=== PATIENT | female | born 1955 | race Hispanic/Latino ===

== ENCOUNTER 2016-11-20 18:45 | Emergency (ER) | payer MEDICARE ==
--- NOTE | 2016-11-20 19:27 | Emergency Department Report ---
Chief Complaint: Extremity Injury, Lower Stated Complaint: LITO/LEG SWOLLEN Time Seen by Provider: 11/20/16 19:00 - HPI History of Present Illness: 61-year-old female presents today with bilateral lower extremity edema and erythema 3 days. Patient was referred here by [facility] for IV antibiotics. Positive for history of cellulitis. Patient also short of breath and wheezing. Positive for history of CHF and is currently on 2 L home oxygen. Explained to patient that her blood pressure was elevated, history of hypertension but is compliant with medication. Patient states it may be due to pain and lack of sleep. - ROS Review of Systems: Per HPI - Exam Vital Signs: Vital Signs 11/20/16 18:49 Temperature 97.8 F Pulse Rate 95 H Respiratory 24 Rate Blood Pressure 176/116 O2 Sat by Pulse 97 Oximetry Physical Exam: General: 61-year-old female in distress. Well-developed, well-nourished. CV: Regular rate and rhythm. Lungs: As stiff or wheezing. Bilateral lower extremities: Positive for erythema and edema of lower legs and feet. Peripheral pulses intact. Capillary refill less than 2 seconds. MSE screening note: Focused history and physical exam performed. Due to findings the following was ordered: ED Disposition for MSE Condition: Stable
[2016-11-20 20:24] LABS: Calcium 8.8 mg/dL (8.4-10.2); Chloride 97.9 mmol/L (98-107); Potassium 4.2 mmol/L (3.6-5.0)
[2016-11-20 20:26] LABS: Basophils % (Auto) 0.3 % (0.0-1.8); Eosinophils % (Auto) 0.2 % (0.0-4.3); Hematocrit 35.4 % (30.3-42.9); Hemoglobin 11.1 gm/dl (10.1-14.3); Mean Corpuscular HGB Conc 32 % (30-34); Mean Corpuscular Volume 75 fl (79-97); Platelet Count 263 K/mm3 (140-440); White Blood Count 8.2 K/mm3 (4.5-11.0)
[2016-11-20 20:27] LABS: Mean Corpuscular Hemoglobin 24 pg (28-32); Red Cell Distribution Width 24.2 % (13.2-15.2)
[2016-11-20 20:28] LABS: Creatine Kinase 49 units/L (30-135)
[2016-11-20] MEDS ORDERED: DUONEB 0.5 MG-3 MG/3 ML SOLN IH ONE (21:42)
[2016-11-20] MEDS ORDERED: XOPENEX IH ONE ×2 (21:51→21:56)
[2016-11-20 22:19] VITALS: BP 133/75
[2016-11-21] MEDS ORDERED: ZOFRAN ONE (00:13)
[2016-11-21] MEDS ORDERED: DUONEB 0.5 MG-3 MG/3 ML SOLN IH ONE (21:32)
--- NOTE | 2016-11-22 14:20 | ED Elopement Review ---
ED Pt Elopement review - Results review Lab results: Laboratory Tests 11/20/16 11/20/16 11/20/16 19:42 19:42 19:42 WBC 8.2 RBC 4.70 Hgb 11.1 Hct 35.4 MCV 75 L MCH 24 L MCHC 32 RDW 24.2 H Plt Count 263 Lymph % (Auto) 23.3 Redwood % (Auto) 7.2 Eos % (Auto) 0.2 Baso % (Auto) 0.3 Lymph # 1.9 Redwood # 0.6 Eos # 0.0 Baso # 0.0 Seg Neutrophils % 69.0 Seg Neutrophils # 5.7 D-Dimer 167.84 Sodium 140 Potassium 4.2 Chloride 97.9 L Carbon Dioxide 26 Anion Gap 20 BUN 18 H Creatinine 1.0 Estimated GFR 57 BUN/Creatinine Ratio 18.00 Glucose 138 H Calcium 8.8 Total Creatine Kinase CK-MB (CK-2) CK-MB (CK-2) Rel Index Troponin T NT-Pro-B Natriuret Pep 11/20/16 11/20/16 19:42 19:42 WBC RBC Hgb Hct MCV MCH MCHC RDW Plt Count Lymph % (Auto) Redwood % (Auto) Eos % (Auto) Baso % (Auto) Lymph # Redwood # Eos # Baso # Seg Neutrophils % Seg Neutrophils # D-Dimer Sodium Potassium Chloride Carbon Dioxide Anion Gap BUN Creatinine Estimated GFR BUN/Creatinine Ratio Glucose Calcium Total Creatine Kinase 49 CK-MB (CK-2) 2.0 CK-MB (CK-2) Rel Index 4.0 Troponin T < 0.010 NT-Pro-B Natriuret Pep 380.7 - Call Back decision Pt Call Back Decision: Pt to F/U with PMD
== END 2016-11-21 02:35 | disposition left against medical advice (07) ==
LOC: ED 18:45
DX: M79.89 Other specified soft tissue disorders (principal); R06.02 Shortness of breath; R06.2 Wheezing; I50.9 Heart failure, unspecified; I10 Essential (primary) hypertension; Z53.21 Procedure and treatment not carried out due to patient leaving prior to being seen by health care provider
CPT/HCPCS: 36415; 80048; 82550; 82553; 83880; 84484; 85025; 85379; 87040; J2405

== ENCOUNTER 2016-11-24 11:30 | Emergency (ER) | payer MEDICARE ==
[2016-11-24] MEDS ORDERED: XOPENEX IH ONE (12:47)
--- NOTE | 2016-11-24 12:53 | Emergency Department Report ---
Chief Complaint: High BP Stated Complaint: HIGH BP/SOB Time Seen by Provider: 11/24/16 12:46 - HPI History of Present Illness: Patient here reports elevated blood pressure 23-4 days. 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 She is complaining of head pressure for 3-4 days. Complaining the dizziness this morning. She reports shortness of breath 3-4 days and she has chest pain that feels tight on the left side that started this morning. Blood pressure in triage is 179/95. Her pain to her head and her chest is 7 out of 10. She has a history of A. fib and she is on Cardizem. She has COPD and she uses home O2 as needed. She has hypertension, diabetes, hyperlipidemia and sleep apnea. Denies any fever or chills. Denies cough with congestion. She cannot take albuterol because she has a history of A. fib she is on Xopenex at home. Denies taking any blood thinner. - ROS Review of Systems: All systems are negative unless stated in HPI above. - Exam Vital Signs: Vital Signs 11/24/16 11:53 Temperature 98.7 F Pulse Rate 89 Respiratory 22 Rate Blood Pressure 179/95 O2 Sat by Pulse 95 Oximetry Physical Exam: Gen: This is a 61-year-old female well-nourished well-developed in no acute distress. CV: S1, S2. Regular rate and rhythm. Blood pressure is 179/95. Lungs: Positive rhonchi and coarseness throughout lung matute. Increased work of breathing. Scattered wheezing. Extremity: Positive swelling to bilateral lower extremity. Positive pedal pulses. MSE screening note: Focused history and physical exam performed. Due to findings the following was ordered:see [facility] ED Medical Decision Making - Medical Decision Making Medical decision making: Patient seen by provider in triage area. Appropriate protocol activated and patient to main ED to be seen by physician. ED Disposition for MSE Condition: Stable
[2016-11-24 14:16] LABS: Basophils % (Auto) 0.2 % (0.0-1.8); Eosinophils % (Auto) 0.6 % (0.0-4.3); Hematocrit 38.7 % (30.3-42.9); Hemoglobin 12.1 gm/dl (10.1-14.3); Mean Corpuscular HGB Conc 31 % (30-34); Mean Corpuscular Volume 76 fl (79-97); Platelet Count 280 K/mm3 (140-440); Red Blood Count 5.07 M/mm3 (3.65-5.03); White Blood Count 10.5 K/mm3 (4.5-11.0)
[2016-11-24 14:18] LABS: Mean Corpuscular Hemoglobin 24 pg (28-32); Red Cell Distribution Width 24.7 % (13.2-15.2)
[2016-11-24 14:25] LABS: INR 0.95 (0.87-1.13)
[2016-11-24 14:26] LABS: Partial Thromboplastin Time 26.4 Sec. (24.2-36.6)
[2016-11-24 14:36] LABS: Alanine Aminotransferase 15 units/L (7-56); Albumin/Globulin Ratio 1.2 %; Alkaline Phosphatase 117 units/L (35-129); Anion Gap 20 mmol/L; Bilirubin,Total 0.3 mg/dL (0.1-1.2); Blood Urea Nitrogen 10 mg/dL (7-17); Calcium 9.6 mg/dL (8.4-10.2); Carbon Dioxide 25 mmol/L (22-30); Chloride 97.1 mmol/L (98-107); Creatine Kinase 92 units/L (30-135); Glucose 123 mg/dL (65-100); Potassium 4.3 mmol/L (3.6-5.0); Sodium 138 mmol/L (137-145); Total Protein 7.3 g/dL (6.3-8.2)
[2016-11-24 14:42] LABS: Bilirubin,Direct < 0.2 mg/dL (0-0.2)
[2016-11-24 17:40] VITALS: BP 137/92
--- NOTE | 2016-11-26 19:10 | ED Elopement Review ---
ED Pt Elopement review - Results review Lab results: Laboratory Tests 11/24/16 11/24/16 11/24/16 13:55 13:55 13:55 WBC 10.5 RBC 5.07 H Hgb 12.1 Hct 38.7 MCV 76 L MCH 24 L MCHC 31 RDW 24.7 H Plt Count 280 Lymph % (Auto) 38.2 H Motley % (Auto) 5.9 Eos % (Auto) 0.6 Baso % (Auto) 0.2 Lymph # 4.0 Motley # 0.6 Eos # 0.1 Baso # 0.0 Seg Neutrophils % 55.1 Seg Neutrophils # 5.8 PT 12.6 INR 0.95 APTT 26.4 Sodium 138 Potassium 4.3 Chloride 97.1 L Carbon Dioxide 25 Anion Gap 20 BUN 10 Creatinine 0.8 Estimated GFR > 60 BUN/Creatinine Ratio 12.50 Glucose 123 H Calcium 9.6 Total Bilirubin 0.3 Direct Bilirubin < 0.2 AST 18 ALT 15 Alkaline Phosphatase 117 Total Creatine Kinase 92 CK-MB (CK-2) 2.0 CK-MB (CK-2) Rel Index 2.1 Troponin T < 0.010 NT-Pro-B Natriuret Pep Total Protein 7.3 Albumin 4.0 Albumin/Globulin Ratio 1.2 11/24/16 11/24/16 13:55 14:50 WBC RBC Hgb Hct MCV MCH MCHC RDW Plt Count Lymph % (Auto) Motley % (Auto) Eos % (Auto) Baso % (Auto) Lymph # Motley # Eos # Baso # Seg Neutrophils % Seg Neutrophils # PT INR APTT Sodium Potassium Chloride Carbon Dioxide Anion Gap BUN Creatinine Estimated GFR BUN/Creatinine Ratio Glucose Calcium Total Bilirubin Direct Bilirubin AST ALT Alkaline Phosphatase Total Creatine Kinase CK-MB (CK-2) CK-MB (CK-2) Rel Index Troponin T < 0.010 NT-Pro-B Natriuret Pep 133.6 Total Protein Albumin Albumin/Globulin Ratio - Call Back decision Pt Call Back Decision: No action required
--- NOTE | 2016-11-27 10:33 | XRay Report ---
Chest 2 views: Compared to 11/01/16. History: Chest pain. Findings: Normal cardiomediastinal silhouette. Trachea is midline. No consolidation, pneumothorax or pleural effusion. Impression: No acute cardiopulmonary findings.
== END 2016-11-24 17:35 | disposition left against medical advice (07) ==
LOC: ED 11:30
DX: I10 Essential (primary) hypertension (principal); R42 Dizziness and giddiness; R06.02 Shortness of breath; E11.65 Type 2 diabetes mellitus with hyperglycemia; J44.9 Chronic obstructive pulmonary disease, unspecified; Z53.21 Procedure and treatment not carried out due to patient leaving prior to being seen by health care provider
CPT/HCPCS: 36415; 71020; 80048; 80074; 82550; 82553; 83880; 84484; 85025; 85610; 85730; 93005; 93010; 94640

== ENCOUNTER 2016-12-17 21:01 | Emergency (ER) | payer MEDICARE | END 2016-12-17 21:45 | disposition left against medical advice (07) | LOC: ED 21:01 | DX: M79.1 Myalgia (principal); Z53.21 Procedure and treatment not carried out due to patient leaving prior to being seen by health care provider ==

== ENCOUNTER 2017-01-22 16:17 | Emergency (ER) | payer MEDICARE ==
[2017-01-22 16:39] VITALS: BP 137/75
[2017-01-22 17:48] LABS: Anion Gap 21 mmol/L; BUN/Creatinine Ratio 15.55; Blood Urea Nitrogen 14 mg/dL (7-17); Calcium 9.5 mg/dL (8.4-10.2); Carbon Dioxide 25 mmol/L (22-30); Chloride 97.7 mmol/L (98-107); Glucose 117 mg/dL (65-100); Potassium 3.9 mmol/L (3.6-5.0); Sodium 140 mmol/L (137-145)
[2017-01-22 18:02] LABS: Basophils % (Auto) 0.4 % (0.0-1.8); Eosinophils % (Auto) 0.5 % (0.0-4.3); Hematocrit 38.3 % (30.3-42.9); Hemoglobin 11.8 gm/dl (10.1-14.3); Mean Corpuscular HGB Conc 31 % (30-34); Mean Corpuscular Volume 77 fl (79-97); Platelet Count 293 K/mm3 (140-440); Red Blood Count 5.01 M/mm3 (3.65-5.03); White Blood Count 7.4 K/mm3 (4.5-11.0)
[2017-01-22 18:10] LABS: Mean Corpuscular Hemoglobin 24 pg (28-32)
--- NOTE | 2017-01-23 07:37 | XRay Report ---
ROUTINE CHEST, TWO VIEWS: HISTORY: Shortness of breath. The trachea, heart, mediastinal contour, lung matute and bony thorax are unremarkable. No significant change since 12/2016 IMPRESSION: Unremarkable chest x-ray.
== END 2017-01-22 18:59 | disposition left against medical advice (07) ==
LOC: ED 16:17
DX: R07.89 Other chest pain (principal); R06.02 Shortness of breath; M79.89 Other specified soft tissue disorders; Z53.21 Procedure and treatment not carried out due to patient leaving prior to being seen by health care provider
CPT/HCPCS: 36415; 71020; 80048; 83880; 84484; 85025; 93005; 93010

== ENCOUNTER 2017-01-27 19:10 | Emergency (ER) | payer MEDICARE ==
[2017-01-27 20:10] VITALS: BP 157/85
[2017-01-27 21:49] LABS: Hematocrit 35.2 % (30.3-42.9); Hemoglobin 11.1 gm/dl (10.1-14.3); Mean Corpuscular HGB Conc 32 % (30-34); Mean Corpuscular Volume 75 fl (79-97); Platelet Count 312 K/mm3 (140-440); Red Blood Count 4.68 M/mm3 (3.65-5.03); White Blood Count 6.9 K/mm3 (4.5-11.0)
[2017-01-27 21:52] LABS: Mean Corpuscular Hemoglobin 24 pg (28-32); Red Cell Distribution Width 20.8 % (13.2-15.2)
[2017-01-27 21:54] LABS: Calcium 9.2 mg/dL (8.4-10.2); Potassium 3.9 mmol/L (3.6-5.0)
[2017-01-27 21:59] LABS: INR 0.97 (0.87-1.13)
[2017-01-27 22:00] LABS: Partial Thromboplastin Time 27.8 Sec. (24.2-36.6)
--- NOTE | 2017-01-29 21:18 | ED Elopement Review ---
ED Pt Elopement review - Results review Lab results: Laboratory Tests 01/27/17 01/27/17 01/27/17 21:28 21:28 21:28 WBC 6.9 RBC 4.68 Hgb 11.1 Hct 35.2 MCV 75 L MCH 24 L MCHC 32 RDW 20.8 H Plt Count 312 PT 12.8 INR 0.97 APTT 27.8 Carbon Dioxide 27 BUN 14 Creatinine 1.0 Estimated GFR 57 BUN/Creatinine Ratio 14.00 Glucose 94 Calcium 9.2 - Call Back decision Pt Call Back Decision: No action required
== END 2017-01-27 21:30 | disposition left against medical advice (07) ==
LOC: ED 19:10
DX: M79.604 Pain in right leg (principal); M79.605 Pain in left leg; Z53.21 Procedure and treatment not carried out due to patient leaving prior to being seen by health care provider
CPT/HCPCS: 36415; 80048; 85027; 85610; 85730

== ENCOUNTER 2017-02-24 12:48 | Emergency (ER) | payer MEDICARE ==
[2017-02-24] MEDS ORDERED: DECADRON IM ONE (17:33)
[2017-02-24] MEDS ORDERED: TORADOL IM ONE (17:33)
--- NOTE | 2017-02-24 17:41 | Emergency Department Report ---
ED Back Pain/Injury HPI - General Chief Complaint: Extremity Injury, Lower Stated Complaint: SEVERE PAIN R LEG Time Seen by Provider: 02/24/17 17:27 Source: patient Mode of arrival: Ambulatory Limitations: No Limitations - History of Present Illness Initial Comments: patient comes in with complaints of severe right leg pain. Denies any injury but states that the pain starts on the right side of her buttock area and extends down the right leg posteriorly to about knee level. States that she has a history of RLS but states that this is not it. MD Complaint: back pain, other (right leg pain) -: Gradual, days(s) (2) Radiation: right leg Severity: severe Severity scale (0 -10): 10 Quality: sharp, stabbing Consistency: constant Improves With: none Worsens With: movement, sitting upright, walking Associated Symptoms: denies other symptoms. denies: chest pain, numbness, difficulty urinating, incontinence, fever/chills, constipation, headaches, abdominal pain, loss of appetite, shortness of breath - Related Data Home Medications Medication Instructions Recorded Confirmed Last Taken Oxycodone HCl/Acetaminophen 1 each PO Q8H PRN 01/02/17 01/02/17 01/02/17 [Percocet 10/325 mg] Previous Rx's Medication Instructions Recorded Last Taken Type Omeprazole [PriLOSEC] 40 mg PO QDAY #30 capsule. 04/28/16 01/02/17 Rx Amiodarone [Cordarone 200 MG TAB] 200 mg PO BID #60 tablet 05/30/16 01/02/17 Rx Arformoterol Nebu [Brovana Nebu] 15 mcg IH Q12HRT #10 ml 05/30/16 01/02/17 Rx Budesoni/Formotero 160-4.5(Nf) 2 puff IH BID #1 inha 05/30/16 01/02/17 Rx [Symbicort 160-4.5 (Nf)] Diltiazem Cd [Cardizem CD] 180 mg PO Q24HR #30 capsule 05/30/16 01/02/17 Rx Multivitamin with Iron 1 each PO DAILY #30 tablet 05/30/16 01/02/17 Rx [Multivitamins with Iron] Pantoprazole [Protonix TAB] 40 mg PO QDAY #30 tablet 05/30/16 01/02/17 Rx Promethazine [Phenergan TAB] 25 mg PO Q6HR PRN #30 tablet 05/30/16 01/02/17 Rx Simvastatin [Zocor TAB] 40 mg PO QHS #30 tablet 05/30/16 01/02/17 Rx Temazepam [Restoril] 15 mg PO QHS #30 capsule 05/30/16 01/02/17 Rx Venlafaxine Xr [Effexor XR] 150 mg PO BID #60 capsule 05/30/16 01/02/17 Rx glipiZIDE [Glucotrol] 5 mg PO QDAY #30 tablet 05/30/16 01/02/17 Rx rOPINIRole [Requip] 5 mg PO TID #30 tablet 05/30/16 01/02/17 Rx Ferrous Gluconate [Fergon 325 MG 325 mg PO TID #20 tablet 09/24/16 01/02/17 Rx tab] Furosemide [Lasix TAB] 40 mg PO BID #60 tablet 10/07/16 01/02/17 Rx Levalbuterol HCl [Levalbuterol 45 mcg IH QID #60 vial.neb 10/07/16 01/02/17 Rx Concentrate] ISOSORBIDE MONOnitrate [Imdur ER] 60 mg PO QDAY #30 tab.er.24h 10/28/16 Rx predniSONE [Deltasone] 50 mg PO QDAY #6 tab 10/28/16 01/02/17 Rx Prednisone [predniSONE 5 mg (6-Day 5 mg PO .TAPER #1 tab.ds.pk 01/05/17 Unknown Rx Pack, 21 Tabs)] Diazepam [Valium] 10 mg PO Q8H PRN #20 tablet 02/24/17 Unknown Rx Nabumetone [Relafen] 500 mg PO BID #20 tablet 02/24/17 Unknown Rx Allergies Allergy/AdvReac Type Severity Reaction Status Date / Time atenolol Allergy Unknown Verified 02/24/17 14:11 cefuroxime axetil Allergy Hives Verified 02/24/17 14:11 [From Ceftin] duloxetine HCl Allergy Unknown Verified 02/24/17 14:11 [From Cymbalta] gabapentin [From Neurontin] Allergy Rash Verified 02/24/17 14:11 ketoconazole Allergy Shortness Verified 02/24/17 14:11 of Breath levofloxacin [From Levaquin] Allergy Hives Verified 02/24/17 14:11 lorazepam [From Ativan] Allergy Unknown Verified 02/24/17 14:11 rotigotine [From Neupro] Allergy Rash Verified 02/24/17 14:11 umeclidinium bromide Allergy Swelling Verified 02/24/17 14:11 [From Anoro Ellipta] vilanterol trifenatate Allergy Swelling Verified 02/24/17 14:11 [From Anoro Ellipta] albuterol AdvReac Unknown Verified 02/24/17 14:11 rivaroxaban [From Xarelto] AdvReac Bleeding Verified 02/24/17 14:11 ED Review of Systems ROS: Stated complaint: SEVERE PAIN R LEG Other details as noted in HPI Constitutional: denies: chills, fever Eyes: denies: eye pain, eye discharge, vision change ENT: denies: ear pain, throat pain Respiratory: denies: cough, shortness of breath, wheezing Cardiovascular: denies: chest pain, palpitations Endocrine: no symptoms reported Gastrointestinal: denies: abdominal pain, nausea, diarrhea Genitourinary: denies: urgency, dysuria, discharge Musculoskeletal: back pain, myalgia. denies: joint swelling, arthralgia Skin: denies: rash, lesions Neurological: denies: headache, weakness, paresthesias Psychiatric: denies: anxiety, depression Hematological/Lymphatic: denies: easy bleeding, easy bruising ED Past Medical Hx - Past Medical History Hx Hypertension: Yes Hx Congestive Heart Failure: Yes Hx Diabetes: Yes Hx GERD: Yes (Darby's esophagus) Hx Arthritis: Yes Hx Headaches / Migraines: Yes Hx Psychiatric Treatment: Yes (anxiety/panic attacks, depression) Hx Asthma: Yes Hx COPD: Yes Additional medical history: chronic back problems/pain cardiac mass 06/2015. restless leg syndrome,. sleep apnea. pituitary gland tumor. A-Fib. Epicardial fat pad "cardiac mass". CARDIAC MASS. REYNAUD'S DISEASE - Surgical History Hx Coronary Stent: Yes Additional Surgical History: hysterectomy, , all teeth removed, cataract surgery, upper gi surgery, PAT ablation r) greater saphenous, PORT in and PORT out, HEART CATH, VASCULAR SURGERY rt leg.Raynards Disease - Social History Smoking Status: Former Smoker Substance Use Type: Prescribed - Medications Home Medications: Home Medications Medication Instructions Recorded Confirmed Last Taken Type Omeprazole [PriLOSEC] 40 mg PO QDAY #30 capsule. 04/28/16 01/02/17 01/02/17 Rx Amiodarone [Cordarone 200 MG TAB] 200 mg PO BID #60 tablet 05/30/16 01/02/17 Rx Arformoterol Nebu [Brovana Nebu] 15 mcg IH Q12HRT #10 ml 05/30/16 01/02/1701/02 Rx Budesoni/Formotero 160-4.5(Nf) 2 puff IH BID #1 inha 05/30/16 01/02/17 01/02/17 Rx [Symbicort 160-4.5 (Nf)] Diltiazem Cd [Cardizem CD] 180 mg PO Q24HR #30 capsule 05/30/16 01/02/17 Rx Multivitamin with Iron 1 each PO DAILY #30 tablet 05/30/16 01/02/17 01/02/17 Rx [Multivitamins with Iron] Pantoprazole [Protonix TAB] 40 mg PO QDAY #30 tablet 05/30/16 01/02/17 01/02/17 Rx Promethazine [Phenergan TAB] 25 mg PO Q6HR PRN #30 tablet 05/30/16 01/02/17 Rx Simvastatin [Zocor TAB] 40 mg PO QHS #30 tablet 05/30/16 01/02/17 01/02/17 Rx Temazepam [Restoril] 15 mg PO QHS #30 capsule 05/30/16 01/02/17 01/02/17 Rx Venlafaxine Xr [Effexor XR] 150 mg PO BID #60 capsule 05/30/16 01/02/17 Rx glipiZIDE [Glucotrol] 5 mg PO QDAY #30 tablet 05/30/16 01/02/17 01/02/17 Rx rOPINIRole [Requip] 5 mg PO TID #30 tablet 05/30/16 01/02/17 01/02/17 Rx Ferrous Gluconate [Fergon 325 MG 325 mg PO TID #20 tablet 09/24/16 01/02/17 Rx tab] Furosemide [Lasix TAB] 40 mg PO BID #60 tablet 10/07/16 01/02/17 01/02/17 Rx Levalbuterol HCl [Levalbuterol 45 mcg IH QID #60 vial.neb 10/07/16 01/02/17 Rx Concentrate] ISOSORBIDE MONOnitrate [Imdur ER] 60 mg PO QDAY #30 tab.er.24h 10/28/1601/02/17 Rx predniSONE [Deltasone] 50 mg PO QDAY #6 tab 10/28/16 01/02/17 01/02/17 Rx Oxycodone HCl/Acetaminophen 1 each PO Q8H PRN 01/02/17 01/02/17 01/02/17 History [Percocet 10/325 mg] Prednisone [predniSONE 5 mg (6-Day 5 mg PO .TAPER #1 tab.ds.pk 01/05/17 Unknown Rx Pack, 21 Tabs)] Diazepam [Valium] 10 mg PO Q8H PRN #20 tablet 02/24/17 Unknown Rx Nabumetone [Relafen] 500 mg PO BID #20 tablet 02/24/17 Unknown Rx ED Physical Exam - General Limitations: No Limitations General appearance: alert, in no apparent distress - Head Head exam: Present: atraumatic, normocephalic - Eye Eye exam: Present: normal appearance - ENT ENT exam: Present: mucous membranes moist - Neck Neck exam: Present: normal inspection, full ROM - Respiratory Respiratory exam: Present: normal lung sounds bilaterally. Absent: respiratory distress - Cardiovascular Cardiovascular Exam: Present: regular rate, normal rhythm - GI/Abdominal GI/Abdominal exam: Present: soft, normal bowel sounds. Absent: tenderness, guarding, rebound - Rectal Rectal exam: Present: deferred - Extremities Exam Extremities exam: Present: normal inspection - Expanded Lower Extremity Exam Right Hip exam: Present: tenderness. Absent: full ROM, swelling, abrasion, laceration , ecchymosis, erythema Upper Leg exam: Present: normal inspection, tenderness (posteriorly ) Knee exam: Present: normal inspection, full ROM Lower Leg exam: Present: normal inspection. Absent: swelling, erythema Ankle exam: Present: normal inspection, full ROM Neuro vascular tendon exam: Present: no vascular compromise. Absent: pulse deficit, abnormal cap refill, motor deficit, sensory deficit, tendon deficit, extremity cold to touch - Back Exam Back exam: Present: normal inspection - Expanded Back Exam Expanded Back exam: Absent: saddle anesthesia Back exam: Sciatic Notch Tenderness: Right, Positive Straight Leg Raise: Right, Negative Straight Leg Raising: Left - Neurological Exam Neurological exam: Present: alert, oriented X3, CN II-XII intact, reflexes normal. Absent: motor sensory deficit - Psychiatric Psychiatric exam: Present: normal affect, anxious - Skin Skin exam: Present: warm, dry, intact, normal color. Absent: rash ED Course Vital Signs 02/24/17 14:06 Temperature 98.0 F Pulse Rate 80 Respiratory 20 Rate Blood Pressure 141/76 O2 Sat by Pulse 97 Oximetry ED Medical Decision Making - Medical Decision Making Patient appears to be uncomfortable on examination. She has reproducable pain on palpation and findings are consistent with sciatica. She was given IM Torodol and IM Decadron in the ER today. I will continue outpatient medications and refer her to ortho for further evaluation if symptoms fail to resolve. Critical care attestation.: If time is entered above; I have spent that time in minutes in the direct care of this critically ill patient, excluding procedure time. ED Disposition Clinical Impression: Sciatica of right side Disposition: DISCHARGED TO HOME OR SELFCARE Is pt being admited?: No Does the pt Need Aspirin: No Condition: Good Instructions: Sciatica (ED) Prescriptions: Diazepam [Valium] 10 mg PO Q8H PRN #20 tablet PRN Reason: Muscle Spasm Nabumetone [Relafen] 500 mg PO BID #20 tablet Referrals: PRIMARY CAREMD [Primary Care Provider] - 3-5 Days NIESHA DOWNING MD [Staff Physician] - 3-5 Days Time of Disposition: 17:50
[2017-02-24 18:03] VITALS: BP 126/88
== END 2017-02-24 18:03 | disposition home or self-care (01) ==
LOC: ED 12:48
DX: M54.31 Sciatica, right side (principal); I10 Essential (primary) hypertension; I50.9 Heart failure, unspecified; E11.9 Type 2 diabetes mellitus without complications; K20.9 Esophagitis, unspecified; J45.909 Unspecified asthma, uncomplicated; J44.9 Chronic obstructive pulmonary disease, unspecified; Z87.891 Personal history of nicotine dependence
CPT/HCPCS: 96372; 99282; J1100; J1885

== ENCOUNTER 2017-03-05 10:18 | Emergency (ER) | payer MEDICARE ==
[2017-03-05 10:44] VITALS: BP 170/99
[2017-03-05 11:40] LABS: Hematocrit 40.2 % (30.3-42.9); Hemoglobin 12.7 gm/dl (10.1-14.3); Mean Corpuscular HGB Conc 32 % (30-34); Mean Corpuscular Volume 78 fl (79-97); Platelet Count 325 K/mm3 (140-440); Red Blood Count 5.18 M/mm3 (3.65-5.03)
[2017-03-05 11:47] LABS: Anion Gap 19 mmol/L; BUN/Creatinine Ratio 24.44; Blood Urea Nitrogen 22 mg/dL (7-17); Calcium 9.5 mg/dL (8.4-10.2); Carbon Dioxide 29 mmol/L (22-30); Chloride 93.9 mmol/L (98-107); Glucose 107 mg/dL (65-100); Potassium 4.3 mmol/L (3.6-5.0); Sodium 138 mmol/L (137-145)
[2017-03-05 11:48] LABS: Mean Corpuscular Hemoglobin 25 pg (28-32)
--- NOTE | 2017-03-05 12:01 | Emergency Department Report ---
Entered by FLORENCE PEREZ, acting as scribe for BERTHA LOVELL PA. Chief Complaint: Extremity Injury, Lower Stated Complaint: CHEST PAIN Time Seen by Provider: 03/05/17 10:57 - HPI History of Present Illness: 61 y/o female presents c/o right side sciatica nerve damage and was discharged from [facility] yesterday but claims meds are not working. She also notes toe discoloration and cold temperature. Visited an unknown orthopedic Dr. Meds include oxycodon. - ROS Review of Systems: as noted in HPI - Exam Vital Signs: Vital Signs 03/05/17 10:40 Temperature 98.7 F Pulse Rate 87 Respiratory 22 Rate Blood Pressure 170/99 O2 Sat by Pulse 100 Oximetry Physical Exam: General: 61 y/o female in no acute distress. Well-developed, well-nourished. CV: Regular rate and rhythm. No murmurs rubs or gallops. Lungs: Expiratory wheezing Abdomen: No tenderness to palpation. No guarding or rebound tenderness. Normal bowel sounds. Mini Neuro: Alert and oriented 3. Extremeties: Full ROM bilaterally. RLE Pulses 2+, LLE pulses diminshed. MSE screening note: Focused history and physical exam performed. Due to findings the following was ordered: ED Disposition for MSE Condition: Stable This documentation as recorded by the scribe,FLORENCE PEREZ,accurately reflects the service I personally performed and the decisions made by me,BERTHA LOVELL PA.
--- NOTE | 2017-03-08 14:56 | ED Elopement Review ---
ED Pt Elopement review - Results review Lab results: Laboratory Tests 03/05/17 03/05/17 11:07 11:07 WBC 13.0 H RBC 5.18 H Hgb 12.7 Hct 40.2 MCV 78 L MCH 25 L MCHC 32 RDW 21.0 H Plt Count 325 Sodium 138 Potassium 4.3 Chloride 93.9 L Carbon Dioxide 29 Anion Gap 19 BUN 22 H Creatinine 0.9 Estimated GFR > 60 BUN/Creatinine Ratio 24.44 Glucose 107 H Calcium 9.5 - Call Back decision Pt Call Back Decision: No action required
== END 2017-03-05 12:05 | disposition left against medical advice (07) ==
LOC: ED 10:18
DX: R07.9 Chest pain, unspecified (principal); Z53.21 Procedure and treatment not carried out due to patient leaving prior to being seen by health care provider
CPT/HCPCS: 36415; 80048; 85027; 93005; 93010

== ENCOUNTER 2017-03-12 16:13 | Emergency (ER) | payer MEDICARE ==
--- NOTE | 2017-03-12 17:04 | Emergency Department Report ---
Entered by JOSIE BROWN, acting as scribe for ALYCIA VALENTIN NP. Chief Complaint: Extremity Problem,Nontraumatic Stated Complaint: RT SIDE PAIN Time Seen by Provider: 03/12/17 16:54 - HPI History of Present Illness: 61 y/o non-toxic, non ill-appearing female in no acute distress presents to ED c /o cramping right buttocks pain radiating down her right leg as well as bilateral lower extremity pain. She denies trauma or acute injury. Denies dysuria, malodorous urine, or vaginal discharge. Reports chronic SOB, unchanged from baseline. Pt states her feet are numb and "feel like ice", and notes associated swelling. Denies calf pain. She states she was seen recently at [facility] and diagnosed with sciatica and arthritis after 3-day admission. History of diagnosed venous insufficiency. She states she initially experienced relief with percocet and rest, but her pain has persisted. - ROS Review of Systems: + right buttocks, lower extremity pain + swelling to bilateral lower extremities - calf pain, tenderness - Exam Vital Signs: Vital Signs 03/12/17 16:45 Temperature 98.6 F Pulse Rate 92 H Respiratory 20 Rate Blood Pressure 140/74 O2 Sat by Pulse 98 Oximetry Physical Exam: MS/Extremity: Pallor to bilateral lower extremities, cool to touch. Pitting edema to bilateral lower extremities. Faint DP pulses bilaterally with numbness. Negative calf pain, tenderness. No signs of trauma. MSE screening note: Focused history and physical exam performed. Due to findings the following was ordered: CBC, CMP, BNP, UA, CK ED Disposition for MSE Condition: Stable This documentation as recorded by the scribe,JOSIE BROWN,accurately reflects the service I personally performed and the decisions made by HOMERO johnson MARTIN, GUDELIA.
[2017-03-12 17:21] LABS: Basophils % (Auto) 0.3 % (0.0-1.8); Eosinophils % (Auto) 0.2 % (0.0-4.3); Hematocrit 37.2 % (30.3-42.9); Hemoglobin 11.6 gm/dl (10.1-14.3); Mean Corpuscular HGB Conc 31 % (30-34); Mean Corpuscular Volume 78 fl (79-97); Platelet Count 265 K/mm3 (140-440); Red Blood Count 4.79 M/mm3 (3.65-5.03); White Blood Count 11.3 K/mm3 (4.5-11.0)
[2017-03-12 17:22] LABS: Mean Corpuscular Hemoglobin 24 pg (28-32); Red Cell Distribution Width 21.2 % (13.2-15.2)
[2017-03-12 17:56] LABS: Albumin/Globulin Ratio 1.7 %; Bilirubin,Total 0.2 mg/dL (0.1-1.2); Chloride 99.1 mmol/L (98-107); Potassium 4.5 mmol/L (3.6-5.0); Total Protein 6.3 g/dL (6.3-8.2)
[2017-03-12] MEDS ORDERED: MORPHINE IV ONE (19:31)
[2017-03-12] MEDS ORDERED: ZOFRAN IV ONE (19:55)
--- NOTE | 2017-03-12 20:12 | Emergency Department Report ---
HPI - General Chief Complaint: Extremity Problem,Nontraumatic Time Seen by Provider: 03/12/17 18:48 - HPI HPI: This is a 61-year-old female presents to the emergency department from home via EMS with complaint of pain to the right hip, buttock and down the right leg that she says is consistent with sciatic nerve pain. She said that she saw an orthopedist to diagnose her with this recently. She had been taking a Percocet today without any relief of her discomfort. She denies any problems with bowel or bladder, numbness or paresthesias or any neurological deficits. The patient has a history of venous insufficiency for which she follows with Dr. Rodriguez, the vascular physician. She has an appointment on the for a follow-up Doppler ultrasound. She has a past medical history of arthritis, asthma, CHF, COPD, diabetes, GERD, hypertension, chronic pains, restless leg syndrome, depression, anxiety, atrial fibrillation. No recent travel or sick contacts at home. ED Past Medical Hx - Past Medical History Previous Medical History?: Yes Hx Hypertension: Yes Hx Congestive Heart Failure: Yes Hx Diabetes: Yes Hx GERD: Yes (Darby's esophagus) Hx Arthritis: Yes Hx Headaches / Migraines: Yes Hx Psychiatric Treatment: Yes (anxiety/panic attacks, depression) Hx Asthma: Yes Hx COPD: Yes Additional medical history: chronic back problems/pain cardiac mass 06/2015. restless leg syndrome,. sleep apnea. pituitary gland tumor. A-Fib. Epicardial fat pad "cardiac mass". CARDIAC MASS. REYNAUD'S DISEASE - Surgical History Hx Coronary Stent: Yes Additional Surgical History: hysterectomy, , all teeth removed, cataract surgery, upper gi surgery, PAT ablation r) greater saphenous, PORT in and PORT out, HEART CATH, VASCULAR SURGERY rt leg.Raynards, Rt and left leg stents in CIV JointDisease - Social History Smoking Status: Former Smoker Substance Use Type: Prescribed, Tranquilizers - Medications Home Medications: Home Medications Medication Instructions Recorded Confirmed Last Taken Type Amiodarone [Cordarone 200 MG TAB] 200 mg PO BID #60 tablet 05/30/16 03/12/1705/21 Rx Multivitamin with Iron 1 each PO DAILY #30 tablet 05/30/16 03/12/17 03/11/17 Rx [Multivitamins with Iron] Simvastatin [Zocor TAB] 40 mg PO QHS #30 tablet 05/30/16 03/12/17 03/11/17 Rx Venlafaxine Xr [Effexor XR] 150 mg PO BID #60 capsule 05/30/16 03/12/17 Rx rOPINIRole [Requip] 5 mg PO TID #30 tablet 05/30/16 03/12/17 03/11/17 Rx Furosemide [Lasix TAB] 40 mg PO BID #60 tablet 10/07/16 03/12/17 03/11/17 Rx Levalbuterol HCl [Levalbuterol 45 mcg IH QID #60 vial.neb 10/07/16 03/12/1705/21 Rx Concentrate] Prednisone [predniSONE 5 mg (6-Day 5 mg PO .TAPER #1 tab.ds.pk 03/03/1703/11/17 Rx Pack, 21 Tabs)] oxyCODONE /ACETAMINOPHEN [Percocet 1 tab PO Q6H PRN #20 tablet 03/03/17 Unknown Rx 5/325 mg] ALPRAZolam [Xanax TAB] 1 mg PO TID 03/12/17 03/12/17 03/11/17 History Diltiazem [Cardizem] 60 mg PO QDAY 03/12/17 03/12/17 03/11/17 History Potassium Chloride [K-Dur] 1 tab PO QDAY 03/12/17 03/12/17 03/11/17 History Ranitidine HCl [Zantac 150 MG TAB] 150 mg PO BID 03/12/17 03/12/17 03/11/17 History Spironolactone [Aldactone] 25 mg PO QDAY 03/12/17 03/12/17 03/11/17 History Symbicort 80-4.5 (Nf) 1 puff PO PRN 03/12/17 03/12/17 03/11/17 History ED Review of Systems ROS: Stated complaint: RT SIDE PAIN Other details as noted in HPI Comment: All other systems reviewed and negative Constitutional: denies: chills, fever Eyes: denies: eye pain, eye discharge, vision change ENT: denies: ear pain, throat pain Respiratory: denies: cough, shortness of breath, wheezing Cardiovascular: denies: chest pain, palpitations Gastrointestinal: denies: abdominal pain, nausea, diarrhea Genitourinary: denies: urgency, dysuria, discharge Musculoskeletal: back pain, arthralgia, myalgia Skin: denies: rash, lesions Neurological: denies: headache, weakness Physical Exam - Physical Exam Vital Signs: Vital Signs 03/12/17 03/12/17 16:45 20:03 Temperature 98.6 F Pulse Rate 92 H Respiratory 20 20 Rate Blood Pressure 140/74 O2 Sat by Pulse 98 Oximetry Physical Exam: GENERAL: The patient is well-developed well-nourished. HEENT: Normocephalic. Atraumatic. Extraocular motions are intact. Patient has moist mucous membranes. Pupils equal reactive to light bilaterally. NECK: Supple. Trachea is midline. CHEST/LUNGS: Clear to auscultation. There is no respiratory distress noted. HEART/CARDIOVASCULAR: Regular. There is no tachycardia. There is no gallop rub or murmur. ABDOMEN: Abdomen is soft, nontender. Patient has normal bowel sounds. Obese habitus. SKIN: Skin is warm and dry. NEURO: The patient is awake, alert, and oriented. The patient is cooperative. The patient has no focal neurologic deficits. The patient has normal speech. DTR patellar +2 over 4 bilaterally. MUSCULOSKELETAL: There is no tenderness to palpation. Positive right leg straight leg raise test reproducing or worsening symptoms. There is no evidence of acute injury. BACK: No midline thoracic or lumbar tenderness to palpation or deformity. ED Course Vital Signs 03/12/17 03/12/17 16:45 20:03 Temperature 98.6 F Pulse Rate 92 H Respiratory 20 20 Rate Blood Pressure 140/74 O2 Sat by Pulse 98 Oximetry ED Medical Decision Making - Lab Data Result diagrams: 03/12/17 17:02 03/12/17 17:02 - Medical Decision Making 61-year-old female presents to the emergency department with some right-sided back pain but mostly down towards the hip and buttock that radiates down the right leg. It appears consistent with sciatica and the patient says she was recently diagnosed with sciatica and that this feels similar. There is been no new trauma. There are no neurological deficits. She is neurovascularly intact. Labs are unremarkable and do not show any etiology of the patient's symptoms. She was given some doses of pain medication, anti-inflammatory's and a muscle relaxant and upon reevaluation she is feeling improved. She has an appointment tomorrow with her pain specialist. She appears safe for discharge home at this time. She will return to the ER with any worsening of symptoms or any acute distress. - Differential Diagnosis sciatica, radiculopathy, lumbar strain, contusion Critical Care Time: No Critical care attestation.: If time is entered above; I have spent that time in minutes in the direct care of this critically ill patient, excluding procedure time. ED Disposition Clinical Impression: Right hip pain, Right buttock pain Sciatica Qualifiers: Laterality: right Qualified Code(s): M54.31 - Sciatica, right side Hypertension Qualifiers: Hypertension type: essential hypertension Qualified Code(s): I10 - Essential ( primary) hypertension Disposition: DISCHARGED TO HOME OR SELFCARE Is pt being admited?: No Condition: Stable Instructions: Sciatica (ED), Hypertension (ED), Arthralgia (ED) Additional Instructions: Please follow-up with your primary care doctor, pain specialist, orthopedist as soon as possible. Return to the ER with any worsening of her symptoms or any acute distress. Referrals: PRIMARY CARE, [Primary Care Provider] - [facility] Time of Disposition: 00:36
[2017-03-12 20:56] LABS: Bacteria,Urine 1+ /HPF (Negative); Bilirubin,Urine NEG (Negative); Blood,Urine NEG (Negative); Ketones,Urine NEG (Negative); Leukocyte Esterase,Urine TR (Negative); Mucus,Urine FEW /HPF; Nitrite,Urine NEG (Negative); Urobilinogen,Urine < 2.0 mg/dL (<2.0); WBC,Urine < 1.0 /HPF (0.0-6.0)
[2017-03-12] MEDS ORDERED: FLEXERIL PO ONE (21:59)
[2017-03-12] MEDS ORDERED: TORADOL IV ONE (22:00)
[2017-03-12] MEDS ORDERED: APRESOLINE IV ONE (23:28)
[2017-03-13 01:18] VITALS: BP 146/99
== END 2017-03-13 00:50 | disposition home or self-care (01) ==
LOC: ED 16:13
DX: M25.551 Pain in right hip (principal); M54.31 Sciatica, right side; M54.5 Low back pain; I10 Essential (primary) hypertension; E11.9 Type 2 diabetes mellitus without complications; K21.9 Gastro-esophageal reflux disease without esophagitis; M19.90 Unspecified osteoarthritis, unspecified site; I50.9 Heart failure, unspecified; F41.9 Anxiety disorder, unspecified; F32.9 Major depressive disorder, single episode, unspecified; J45.909 Unspecified asthma, uncomplicated; J44.9 Chronic obstructive pulmonary disease, unspecified; G89.29 Other chronic pain; G43.909 Migraine, unspecified, not intractable, without status migrainosus; G47.30 Sleep apnea, unspecified; I48.91 Unspecified atrial fibrillation; Z95.818 Presence of other cardiac implants and grafts; Z90.710 Acquired absence of both cervix and uterus; Z87.891 Personal history of nicotine dependence; Z88.8 Allergy status to other drugs, medicaments and biological substances
CPT/HCPCS: 36415; 80053; 81001; 82550; 83880; 85025; 96374; 96375; 99284; J1885; J2270; J2405; J0360

== ENCOUNTER 2017-03-16 04:18 | Emergency (ER) | payer MEDICARE ==
[2017-03-16 04:30] VITALS: BP 154/83
[2017-03-16 04:51] LABS: Basophils % (Auto) 0.4 % (0.0-1.8); Eosinophils % (Auto) 0.5 % (0.0-4.3); Hematocrit 34.6 % (30.3-42.9); Hemoglobin 11.2 gm/dl (10.1-14.3); Mean Corpuscular HGB Conc 32 % (30-34); Mean Corpuscular Volume 77 fl (79-97); Platelet Count 250 K/mm3 (140-440); Red Blood Count 4.51 M/mm3 (3.65-5.03); White Blood Count 7.3 K/mm3 (4.5-11.0)
[2017-03-16 04:54] LABS: Mean Corpuscular Hemoglobin 25 pg (28-32); Red Cell Distribution Width 21.8 % (13.2-15.2)
[2017-03-16] MEDS ORDERED: XOPENEX IH ONE (05:03)
[2017-03-16] MEDS ORDERED: ATROVENT IH ONE (05:03)
[2017-03-16 05:13] LABS: Anion Gap 20 mmol/L; BUN/Creatinine Ratio 13.63; Blood Urea Nitrogen 15 mg/dL (7-17); Calcium 9.1 mg/dL (8.4-10.2); Carbon Dioxide 28 mmol/L (22-30); Chloride 98.4 mmol/L (98-107); Glucose 112 mg/dL (65-100); Potassium 3.9 mmol/L (3.6-5.0); Sodium 142 mmol/L (137-145)
--- NOTE | 2017-03-16 07:15 | XRay Report ---
ROUTINE CHEST, TWO VIEWS: HISTORY: Shortness of breath. Compared to 03/01/17. The trachea, heart, mediastinal contour, lung matute and bony thorax are unremarkable. IMPRESSION: Unremarkable chest x-ray.
--- NOTE | 2017-03-18 00:54 | ED Elopement Review ---
ED Pt Elopement review - Results review Lab results: Laboratory Tests 03/16/17 03/16/17 04:34 04:34 WBC 7.3 RBC 4.51 Hgb 11.2 Hct 34.6 MCV 77 L MCH 25 L MCHC 32 RDW 21.8 H Plt Count 250 Lymph % (Auto) 17.2 [place] % (Auto) 7.8 H Eos % (Auto) 0.5 Baso % (Auto) 0.4 Lymph # 1.3 [place] # 0.6 Eos # 0.0 Baso # 0.0 Seg Neutrophils % 74.1 H Seg Neutrophils # 5.4 Sodium 142 Potassium 3.9 Chloride 98.4 Carbon Dioxide 28 Anion Gap 20 BUN 15 Creatinine 1.1 Estimated GFR 51 BUN/Creatinine Ratio 13.63 Glucose 112 H Calcium 9.1 Troponin T < 0.010 - Call Back decision Pt Call Back Decision: Call pt to return to ED YENNI (chest pain may require inpatient evaluation)
== END 2017-03-16 08:50 | disposition left against medical advice (07) ==
LOC: ED 04:18
DX: J02.9 Acute pharyngitis, unspecified (principal); R05 Cough; R06.02 Shortness of breath; Z53.21 Procedure and treatment not carried out due to patient leaving prior to being seen by health care provider
CPT/HCPCS: 36415; 71020; 80048; 84484; 85025; 93005; 93010; 94640

== ENCOUNTER 2017-03-17 05:03 | Inpatient (IN) | payer MEDICARE ==
[2017-03-17] MEDS ORDERED: PROVENTIL IH ONE ×2 (05:35→05:45)
[2017-03-17] MEDS ORDERED: DUONEB 0.5 MG-3 MG/3 ML SOLN IH ONE (06:24)
[2017-03-17] MEDS ORDERED: MAGNESIUM SULFATE 2GM/50ML 2 GM/50 ML BAG IV ONE (06:24)
--- NOTE | 2017-03-17 06:49 | XRay Report ---
FINAL REPORT PROCEDURE: XR CHEST 1V AP TECHNIQUE: Chest radiograph anteroposterior view. CPT 47821 HISTORY: lisa COMPARISON: No prior studies are available for comparison. FINDINGS: Heart: Normal. Mediastinum/Vessels: Normal. Lungs/Pleural space: Normal. Bony thorax: No acute osseous abnormality. Life support devices: None. IMPRESSION: No acute cardiopulmonary abnormality.
[2017-03-17 07:02] LABS: Basophils % (Auto) 0.1 % (0.0-1.8); Eosinophils % (Auto) 0.8 % (0.0-4.3); Hematocrit 33.8 % (30.3-42.9); Hemoglobin 10.5 gm/dl (10.1-14.3); Mean Corpuscular HGB Conc 31 % (30-34); Mean Corpuscular Volume 79 fl (79-97); Platelet Count 244 K/mm3 (140-440); Red Blood Count 4.29 M/mm3 (3.65-5.03); White Blood Count 9.9 K/mm3 (4.5-11.0)
[2017-03-17 07:13] LABS: Magnesium 1.9 mg/dL (1.7-2.3)
[2017-03-17 07:15] LABS: INR 0.95 (0.87-1.13); Partial Thromboplastin Time 26.9 Sec. (24.2-36.6)
[2017-03-17 07:19] LABS: Creatine Kinase MB 1.6 ng/mL (0.0-4.0)
[2017-03-17 07:20] LABS: Alanine Aminotransferase 15 units/L (7-56); Albumin 3.8 g/dL (3.9-5); Albumin/Globulin Ratio 1.9 %; Alkaline Phosphatase 87 units/L (35-129); Anion Gap 17 mmol/L; BUN/Creatinine Ratio 11.81; Blood Urea Nitrogen 13 mg/dL (7-17); Calcium 8.9 mg/dL (8.4-10.2); Carbon Dioxide 29 mmol/L (22-30); Chloride 97.5 mmol/L (98-107); Creatine Kinase 57 units/L (30-135); Glucose 92 mg/dL (65-100); Potassium 4.2 mmol/L (3.6-5.0); Sodium 139 mmol/L (137-145); Total Protein 5.8 g/dL (6.3-8.2)
--- NOTE | 2017-03-17 07:22 | Emergency Department Report ---
ED Shortness of Breath HPI - General Chief Complaint: Dyspnea/Respdistress Stated Complaint: LITO Time Seen by Provider: 03/17/17 06:13 Source: EMS Mode of arrival: Stretcher Limitations: No Limitations - History of Present Illness Initial Comments: Patient has recently weaned off her prednisone. She states that she gave herself 5 nebulizer treatments at home over the past 24 hours with persistent wheezing. He returns to the emergency department for exacerbation of her COPD. She's had multiple prior admissions. She does also have chronic pain and frequently asks for pain medication for chronic "sciatica pain". He denies chest or abdominal pain. She's had no pleuritic-type symptoms at all. She states that she has had some yellow cough and took her temperature at home and found it to be 101. She denies any chills. MD Complaint: shortness of breath, "asthma attack" -: Gradual, hour(s), days(s) Severity: moderate Consistency: constant Improves With: nothing Worsens With: nothing Known History Of: COPD Context: recent URI Associated Symptoms: denies other symptoms, cough Treatments Prior to Arrival: none - Related Data Home Oxygen Amount: 2 Liters Home Medications Medication Instructions Recorded Confirmed Last Taken ALPRAZolam [Xanax TAB] 1 mg PO TID 03/12/17 03/12/17 03/11/17 Diltiazem [Cardizem] 60 mg PO QDAY 03/12/17 03/12/17 03/11/17 Potassium Chloride [K-Dur] 1 tab PO QDAY 03/12/17 03/12/17 03/11/17 Ranitidine HCl [Zantac 150 MG TAB] 150 mg PO BID 03/12/17 03/12/17 03/11/17 Spironolactone [Aldactone] 25 mg PO QDAY 03/12/17 03/12/17 03/11/17 Symbicort 80-4.5 (Nf) 1 puff PO PRN 03/12/17 03/12/17 03/11/17 Previous Rx's Medication Instructions Recorded Last Taken Type Amiodarone [Cordarone 200 MG TAB] 200 mg PO BID #60 tablet 05/30/16 03/11/17 Rx Multivitamin with Iron 1 each PO DAILY #30 tablet 05/30/16 03/11/17 Rx [Multivitamins with Iron] Simvastatin [Zocor TAB] 40 mg PO QHS #30 tablet 05/30/16 03/11/17 Rx Venlafaxine Xr [Effexor XR] 150 mg PO BID #60 capsule 05/30/16 03/11/17 Rx rOPINIRole [Requip] 5 mg PO TID #30 tablet 05/30/16 03/11/17 Rx Furosemide [Lasix TAB] 40 mg PO BID #60 tablet 10/07/16 03/11/17 Rx Levalbuterol HCl [Levalbuterol 45 mcg IH QID #60 vial.neb 10/07/16 03/11/17 Rx Concentrate] Prednisone [predniSONE 5 mg (6-Day 5 mg PO .TAPER #1 tab.ds.pk 03/03/17 Rx Pack, 21 Tabs)] oxyCODONE /ACETAMINOPHEN [Percocet 1 tab PO Q6H PRN #20 tablet 03/03/17 Unknown Rx 5/325 mg] Allergies Allergy/AdvReac Type Severity Reaction Status Date / Time atenolol Allergy Unknown Verified 02/24/17 14:11 cefuroxime axetil Allergy Hives Verified 02/24/17 14:11 [From Ceftin] duloxetine HCl Allergy Unknown Verified 02/24/17 14:11 [From Cymbalta] gabapentin [From Neurontin] Allergy Rash Verified 02/24/17 14:11 ketoconazole Allergy Shortness Verified 02/24/17 14:11 of Breath levofloxacin [From Levaquin] Allergy Hives Verified 02/24/17 14:11 lorazepam [From Ativan] Allergy Unknown Verified 02/24/17 14:11 rotigotine [From Neupro] Allergy Rash Verified 02/24/17 14:11 umeclidinium bromide Allergy Swelling Verified 02/24/17 14:11 [From Anoro Ellipta] vilanterol trifenatate Allergy Swelling Verified 02/24/17 14:11 [From Anoro Ellipta] albuterol AdvReac Unknown Verified 02/24/17 14:11 rivaroxaban [From Xarelto] AdvReac Bleeding Verified 02/24/17 14:11 ED Review of Systems ROS: Stated complaint: LITO Other details as noted in HPI Constitutional: denies: chills, fever Eyes: denies: eye pain, eye discharge, vision change ENT: denies: ear pain, throat pain Respiratory: cough, shortness of breath, wheezing Cardiovascular: denies: chest pain, palpitations Endocrine: no symptoms reported Gastrointestinal: denies: abdominal pain, nausea, diarrhea Genitourinary: denies: urgency, dysuria, discharge Musculoskeletal: denies: back pain, joint swelling, arthralgia Skin: denies: rash, lesions Neurological: denies: headache, weakness, paresthesias Psychiatric: denies: anxiety, depression Hematological/Lymphatic: denies: easy bleeding, easy bruising ED Past Medical Hx - Past Medical History Hx Hypertension: Yes Hx Congestive Heart Failure: Yes Hx Diabetes: Yes Hx GERD: Yes (Darby's esophagus) Hx Arthritis: Yes Hx Headaches / Migraines: Yes Hx Psychiatric Treatment: Yes (anxiety/panic attacks, depression) Hx Asthma: Yes Hx COPD: Yes Additional medical history: chronic back problems/pain cardiac mass 06/2015. restless leg syndrome,. sleep apnea. pituitary gland tumor. A-Fib. Epicardial fat pad "cardiac mass". CARDIAC MASS. REYNAUD'S DISEASE - Surgical History Hx Coronary Stent: Yes Additional Surgical History: hysterectomy, , all teeth removed, cataract surgery, upper gi surgery, PAT ablation r) greater saphenous, PORT in and PORT out, HEART CATH, VASCULAR SURGERY rt leg.Raynards, Rt and left leg stents in CIV JointDisease - Social History Smoking Status: Never Smoker Substance Use Type: None - Medications Home Medications: Home Medications Medication Instructions Recorded Confirmed Last Taken Type Amiodarone [Cordarone 200 MG TAB] 200 mg PO BID #60 tablet 05/30/16 03/12/1705/21 Rx Multivitamin with Iron 1 each PO DAILY #30 tablet 05/30/16 03/12/17 03/11/17 Rx [Multivitamins with Iron] Simvastatin [Zocor TAB] 40 mg PO QHS #30 tablet 05/30/16 03/12/17 03/11/17 Rx Venlafaxine Xr [Effexor XR] 150 mg PO BID #60 capsule 05/30/16 03/12/17 Rx rOPINIRole [Requip] 5 mg PO TID #30 tablet 05/30/16 03/12/17 03/11/17 Rx Furosemide [Lasix TAB] 40 mg PO BID #60 tablet 10/07/16 03/12/17 03/11/17 Rx Levalbuterol HCl [Levalbuterol 45 mcg IH QID #60 vial.neb 10/07/16 03/12/1705/21 Rx Concentrate] Prednisone [predniSONE 5 mg (6-Day 5 mg PO .TAPER #1 tab.ds.pk 03/03/1703/11/17 Rx Pack, 21 Tabs)] oxyCODONE /ACETAMINOPHEN [Percocet 1 tab PO Q6H PRN #20 tablet 03/03/17 Unknown Rx 5/325 mg] ALPRAZolam [Xanax TAB] 1 mg PO TID 03/12/17 03/12/17 03/11/17 History Diltiazem [Cardizem] 60 mg PO QDAY 03/12/17 03/12/17 03/11/17 History Potassium Chloride [K-Dur] 1 tab PO QDAY 03/12/17 03/12/17 03/11/17 History Ranitidine HCl [Zantac 150 MG TAB] 150 mg PO BID 03/12/17 03/12/17 03/11/17 History Spironolactone [Aldactone] 25 mg PO QDAY 03/12/17 03/12/17 03/11/17 History Symbicort 80-4.5 (Nf) 1 puff PO PRN 03/12/17 03/12/17 03/11/17 History ED Physical Exam - General Limitations: No Limitations General appearance: alert, in no apparent distress, obese - Head Head exam: Present: atraumatic, normocephalic - Eye Eye exam: Present: normal appearance. Absent: scleral icterus - ENT ENT exam: Present: mucous membranes moist - Neck Neck exam: Present: normal inspection - Respiratory Respiratory exam: Present: wheezes, rhonchi. Absent: respiratory distress, accessory muscle use - Cardiovascular Cardiovascular Exam: Present: regular rate, normal rhythm. Absent: systolic murmur, diastolic murmur, rubs, gallop - GI/Abdominal GI/Abdominal exam: Present: soft, normal bowel sounds. Absent: distended, tenderness, guarding, rebound - Extremities Exam Extremities exam: Present: normal inspection, pedal edema (mild). Absent: tenderness, calf tenderness - Back Exam Back exam: Present: normal inspection - Neurological Exam Neurological exam: Present: alert, oriented X3, CN II-XII intact. Absent: motor sensory deficit - Psychiatric Psychiatric exam: Present: normal affect, normal mood - Skin Skin exam: Present: warm, dry, intact, normal color. Absent: rash ED Course Vital Signs 03/17/17 03/17/17 03/17/17 05:45 06:00 06:35 Pulse Rate Pulse Rate [ 77 81 83 Bilateral] Respiratory Rate Respiratory 25 H 27 H 25 H Rate [Bilateral ] Blood Pressure [Left] O2 Sat by Pulse Oximetry 03/17/17 03/17/17 03/17/17 06:38 06:52 07:00 Pulse Rate 89 Pulse Rate [ 88 Bilateral] Respiratory 24 20 Rate Respiratory 26 H Rate [Bilateral ] Blood Pressure 115/60 [Left] O2 Sat by Pulse 100 100 Oximetry - Reevaluation(s) Reevaluation #1: Patient given magnesium, Solu-Medrol, Levaquin, duonebs. She is admitted by Dr. Ramirez to the hospitalist service further care and evaluation. 03/17/17 08:01 ED Medical Decision Making - Lab Data Result diagrams: 03/17/17 06:42 03/17/17 06:42 Laboratory Results - last 24 hr 03/17/17 03/17/17 03/17/17 06:42 06:42 06:42 Jewell % (Auto) 8.2 H Eos % (Auto) 0.8 Jewell # 0.8 Eos # 0.1 Baso # 0.0 Seg Neutrophils % 49.7 Seg Neutrophils # 4.9 PT 12.6 INR 0.95 APTT 26.9 Sodium 139 Potassium 4.2 Chloride 97.5 L Carbon Dioxide 29 Anion Gap 17 BUN 13 Creatinine 1.1 Estimated GFR 51 BUN/Creatinine Ratio 11.81 Glucose 92 Calcium 8.9 Magnesium Total Bilirubin 0.20 AST 15 ALT 15 Alkaline Phosphatase 87 Total Creatine Kinase CK-MB (CK-2) CK-MB (CK-2) Rel Index Troponin T NT-Pro-B Natriuret Pep Total Protein 5.8 L Albumin 3.8 L Albumin/Globulin Ratio 1.9 03/17/17 03/17/17 06:42 06:42 Jewell % (Auto) Eos % (Auto) Jewell # Eos # Baso # Seg Neutrophils % Seg Neutrophils # PT INR APTT Sodium Potassium Chloride Carbon Dioxide Anion Gap BUN Creatinine Estimated GFR BUN/Creatinine Ratio Glucose Calcium Magnesium 1.90 Total Bilirubin AST ALT Alkaline Phosphatase Total Creatine Kinase 57 CK-MB (CK-2) 1.6 CK-MB (CK-2) Rel Index 2.8 Troponin T < 0.010 NT-Pro-B Natriuret Pep 102.5 Total Protein Albumin Albumin/Globulin Ratio Laboratory Results - last 24 hr 03/17/17 03/17/17 03/17/17 06:42 06:42 06:42 Jewell % (Auto) 8.2 H Eos % (Auto) 0.8 Jewell # 0.8 Eos # 0.1 Baso # 0.0 Seg Neutrophils % 49.7 Seg Neutrophils # 4.9 PT 12.6 INR 0.95 APTT 26.9 Sodium 139 Potassium 4.2 Chloride 97.5 L Carbon Dioxide 29 Anion Gap 17 BUN 13 Creatinine 1.1 Estimated GFR 51 BUN/Creatinine Ratio 11.81 Glucose 92 Calcium 8.9 Magnesium Total Bilirubin 0.20 Direct Bilirubin < 0.2 AST 15 ALT 15 Alkaline Phosphatase 87 Total Creatine Kinase CK-MB (CK-2) CK-MB (CK-2) Rel Index Troponin T NT-Pro-B Natriuret Pep Total Protein 5.8 L Albumin 3.8 L Albumin/Globulin Ratio 1.9 03/17/17 03/17/17 06:42 06:42 Jewell % (Auto) Eos % (Auto) Jewell # Eos # Baso # Seg Neutrophils % Seg Neutrophils # PT INR APTT Sodium Potassium Chloride Carbon Dioxide Anion Gap BUN Creatinine Estimated GFR BUN/Creatinine Ratio Glucose Calcium Magnesium 1.90 Total Bilirubin Direct Bilirubin AST ALT Alkaline Phosphatase Total Creatine Kinase 57 CK-MB (CK-2) 1.6 CK-MB (CK-2) Rel Index 2.8 Troponin T < 0.010 NT-Pro-B Natriuret Pep 102.5 Total Protein Albumin Albumin/Globulin Ratio - EKG Data -: EKG Interpreted by [facility] EKG shows normal: sinus rhythm, axis, intervals, QRS complexes, ST-T waves Rate: normal - EKG Data Interpretation: other (Q's in the inferior leads possibly consistent with old inferior zone. No acute ischemic changes.) Critical care attestation.: If time is entered above; I have spent that time in minutes in the direct care of this critically ill patient, excluding procedure time. ED Disposition Clinical Impression: Chronic obstructive pulmonary disease with acute exacerbation Disposition: OP ADMITTED IP TO THIS HOSP Is pt being admited?: Yes Does the pt Need Aspirin: Yes Condition: Stable Instructions: Chronic Obstructive Pulmonary Disease (ED) Referrals: PRIMARY CARE, [Primary Care Provider] - 3-5 Days Time of Disposition: 08:31
[2017-03-17 07:36] LABS: Bilirubin,Direct < 0.2 mg/dL (0-0.2)
[2017-03-17] MEDS ORDERED: NORCO 5/325 PO ONE (07:39)
[2017-03-17 08:04] LABS: Mean Corpuscular Hemoglobin 25 pg (28-32); Red Cell Distribution Width 22.4 % (13.2-15.2)
[2017-03-17] MEDS ORDERED: ZITHROMAX 500 MG in NACL 0.9% 250ML 250 ML IV ONE (08:06)
--- NOTE | 2017-03-17 08:48 | History and Physical Report ---
History of Present Illness Date of examination: 03/17/17 History of present illness: Patient has recently weaned off her prednisone. She states that she gave herself 5 nebulizer treatments at home over the past 24 hours with persistent wheezing. He returns to the emergency department for exacerbation of her COPD. She's had multiple prior admissions. She does also have chronic pain and frequently asks for pain medication for chronic "sciatica pain". He denies chest or abdominal pain. She's had no pleuritic-type symptoms at all. She states that she has had some yellow cough and took her temperature at home and found it to be 101. She denies any chills. Past History Past Medical History: COPD, hypertension, hyperlipidemia Medications and Allergies Allergies Allergy/AdvReac Type Severity Reaction Status Date / Time atenolol Allergy Unknown Verified 02/24/17 14:11 cefuroxime axetil Allergy Hives Verified 02/24/17 14:11 [From Ceftin] duloxetine HCl Allergy Unknown Verified 02/24/17 14:11 [From Cymbalta] gabapentin [From Neurontin] Allergy Rash Verified 02/24/17 14:11 ketoconazole Allergy Shortness Verified 02/24/17 14:11 of Breath levofloxacin [From Levaquin] Allergy Hives Verified 02/24/17 14:11 lorazepam [From Ativan] Allergy Unknown Verified 02/24/17 14:11 rotigotine [From Neupro] Allergy Rash Verified 02/24/17 14:11 umeclidinium bromide Allergy Swelling Verified 02/24/17 14:11 [From Anoro Ellipta] vilanterol trifenatate Allergy Swelling Verified 02/24/17 14:11 [From Anoro Ellipta] albuterol AdvReac Unknown Verified 02/24/17 14:11 rivaroxaban [From Xarelto] AdvReac Bleeding Verified 02/24/17 14:11 Home Medications Medication Instructions Recorded Confirmed Last Taken Type Amiodarone [Cordarone 200 MG TAB] 200 mg PO BID #60 tablet 05/30/16 03/12/1705/21 Rx Multivitamin with Iron 1 each PO DAILY #30 tablet 05/30/16 03/12/17 03/11/17 Rx [Multivitamins with Iron] Simvastatin [Zocor TAB] 40 mg PO QHS #30 tablet 05/30/16 03/12/1703/11/17 Rx Venlafaxine Xr [Effexor XR] 150 mg PO BID #60 capsule 05/30/16 03/12/17 Rx rOPINIRole [Requip] 5 mg PO TID #30 tablet 05/30/16 03/12/17 03/11/17 Rx Furosemide [Lasix TAB] 40 mg PO BID #60 tablet 10/07/16 03/12/17 03/11/17 Rx Levalbuterol HCl [Levalbuterol 45 mcg IH QID #60 vial.neb 10/07/16 03/12/1705/21 Rx Concentrate] Prednisone [predniSONE 5 mg (6-Day 5 mg PO .TAPER #1 tab.ds.pk 03/03/1703/11/17 Rx Pack, 21 Tabs)] oxyCODONE /ACETAMINOPHEN [Percocet 1 tab PO Q6H PRN #20 tablet 03/03/17 Unknown Rx 5/325 mg] ALPRAZolam [Xanax TAB] 1 mg PO TID 03/12/17 03/12/17 03/11/17 History Diltiazem [Cardizem] 60 mg PO QDAY 03/12/17 03/12/17 03/11/17 History Potassium Chloride [K-Dur] 1 tab PO QDAY 03/12/17 03/12/17 03/11/17 History Ranitidine HCl [Zantac 150 MG TAB] 150 mg PO BID 03/12/17 03/12/17 03/11/17 History Spironolactone [Aldactone] 25 mg PO QDAY 03/12/17 03/12/17 03/11/17 History Symbicort 80-4.5 (Nf) 1 puff PO PRN 03/12/17 03/12/17 03/11/17 History Active Meds: Active Medications Aspirin (Aspirin) 325 mg PO QDAY ZOË Enoxaparin Sodium (Lovenox) 40 mg SUB-Q QDAY ZOË Azithromycin 500 mg/ Sodium (Chloride) 250 mls @ 250 mls/hr IV ONCE.ED ONE Stop: 03/17/17 09:05 Ipratropium [place] (Atrovent) 0.5 mg IH Q4H ZOË Levalbuterol HCl (Xopenex) 1.25 mg IH Q4H ZOË Review of Systems Respiratory: shortness of breath, congestion, wheezing Exam - Constitutional Vitals: Temp Pulse Resp BP Pulse Ox 90 19 119/41 93 03/17/17 08:30 03/17/17 08:30 03/17/17 08:30 03/17/17 08:30 General appearance: Present: mild distress - EENT Eyes: Present: PERRL, EOM intact ENT: hearing intact, clear oral mucosa, dentition normal - Neck Neck: Present: supple, normal ROM - Respiratory Respiratory effort: labored Respiratory: bilateral: wheezing - Cardiovascular Rhythm: regular Heart Sounds: Present: S1 & S2 - Extremities Extremities: no ischemia, No edema - Abdominal General gastrointestinal: Present: soft, non-tender, non-distended, normal bowel sounds - Psychiatric Psychiatric: appropriate mood/affect, intact judgment & insight - Neurologic Neurologic: CNII-XII intact, moves all extremities Results - Labs CBC & Chem 7: 03/17/17 06:42 03/17/17 06:42 Labs: Laboratory Last Values WBC 9.9 K/mm3 (4.5-11.0) 03/17/17 06:42 RBC 4.29 M/mm3 (3.65-5.03) 03/17/17 06:42 Hgb 10.5 gm/dl (10.1-14.3) 03/17/17 06:42 Hct 33.8 % (30.3-42.9) 03/17/17 06:42 MCV 79 fl (79-97) 03/17/17 06:42 MCH 25 pg (28-32) L 03/17/17 06:42 MCHC 31 % (30-34) 03/17/17 06:42 RDW 22.4 % (13.2-15.2) H 03/17/17 06:42 Plt Count 244 K/mm3 (140-440) 03/17/17 06:42 Lymph % (Auto) 41.2 % (13.4-35.0) H 03/17/17 06:42 [place] % (Auto) 8.2 % (0.0-7.3) H 03/17/17 06:42 Eos % (Auto) 0.8 % (0.0-4.3) 03/17/17 06:42 Baso % (Auto) 0.1 % (0.0-1.8) 03/17/17 06:42 Lymph # 4.1 K/mm3 (1.2-5.4) 03/17/17 06:42 [place] # 0.8 K/mm3 (0.0-0.8) 03/17/17 06:42 Eos # 0.1 K/mm3 (0.0-0.4) 03/17/17 06:42 Baso # 0.0 K/mm3 (0.0-0.1) 03/17/17 06:42 Seg Neutrophils % 49.7 % (40.0-70.0) 03/17/17 06:42 Seg Neutrophils # 4.9 K/mm3 (1.8-7.7) 03/17/17 06:42 PT 12.6 Sec. (12.2-14.9) 03/17/17 06:42 INR 0.95 (0.87-1.13) 03/17/17 06:42 APTT 26.9 Sec. (24.2-36.6) 03/17/17 06:42 Sodium 139 mmol/L (137-145) 03/17/17 06:42 Potassium 4.2 mmol/L (3.6-5.0) 03/17/17 06:42 Chloride 97.5 mmol/L (98-107) L 03/17/17 06:42 Carbon Dioxide 29 mmol/L (22-30) 03/17/17 06:42 Anion Gap 17 mmol/L 03/17/17 06:42 BUN 13 mg/dL (7-17) 03/17/17 06:42 Creatinine 1.1 mg/dL (0.7-1.2) 03/17/17 06:42 Estimated GFR 51 ml/min 03/17/17 06:42 BUN/Creatinine Ratio 11.81 % 03/17/17 06:42 Glucose 92 mg/dL (65-100) 03/17/17 06:42 Calcium 8.9 mg/dL (8.4-10.2) 03/17/17 06:42 Magnesium 1.90 mg/dL (1.7-2.3) 03/17/17 06:42 Total Bilirubin 0.20 mg/dL (0.1-1.2) 03/17/17 06:42 Direct Bilirubin < 0.2 mg/dL (0-0.2) 03/17/17 06:42 AST 15 units/L (5-40) 03/17/17 06:42 ALT 15 units/L (7-56) 03/17/17 06:42 Alkaline Phosphatase 87 units/L (35-129) 03/17/17 06:42 Total Creatine Kinase 57 units/L (30-135) 03/17/17 06:42 CK-MB (CK-2) 1.6 ng/mL (0.0-4.0) 03/17/17 06:42 CK-MB (CK-2) Rel Index 2.8 (0-4) 03/17/17 06:42 Troponin T < 0.010 ng/mL (0.00-0.029) 03/17/17 06:42 NT-Pro-B Natriuret Pep 102.5 pg/mL (0-900) 03/17/17 06:42 Total Protein 5.8 g/dL (6.3-8.2) L 03/17/17 06:42 Albumin 3.8 g/dL (3.9-5) L 03/17/17 06:42 Albumin/Globulin Ratio 1.9 % 03/17/17 06:42 Assessment and Plan - Patient Problems (1) CHF (congestive heart failure) Current Visit: Yes Status: Acute Qualifiers: Congestive heart failure type: C Congestive heart failure chronicity: C Plan to address problem: We'll continue current regimen (2) Chronic obstructive pulmonary disease with acute exacerbation Current Visit: Yes Status: Acute Plan to address problem: We will admit patient to hospital. Start nebulizer treatments, start IV steroids, O2, pulmonary consult
[2017-03-17] MEDS ORDERED: ATROVENT IH PRN (08:49)
[2017-03-17] MEDS ORDERED: PROVENTIL IH PRN (08:49)
[2017-03-17] MEDS: ATROVENT IH SCH ×4 (08:52→20:17)
[2017-03-17] MEDS: XOPENEX IH SCH ×4 (08:52→20:17)
--- NOTE | 2017-03-17 10:09 | Admit Criteria Form ---
Admission Criteria Documentation: COPD Clinical Indications for Admission to Inpatient Care (Place 'X' for any and all applicable criteria): Admission is indicated for ANY ONE of the following (1)(2)(3): [X ]I. Acute exacerbation by high-risk comorbidity (e.g., pneumonia, dysrhythmia, heart failure, pleural effusion, pneumothorax) or severe underlying COPD (e.g., steroid dependent) [ ]II. Inpatient admission required rather than observation care (see Chronic Obstructive Pulmonary Disease: Observation Care) because of ANY ONE of the following: [ ]a) New or pre-existing signs or symptoms of COPD (eg, dyspnea or Tachypnea at rest or with minimal activity) that persist despite outpatient and observation care treatment [ ]b) New-onset hypoxemia (room air SaO2 less than 90%, PO2 less than 60 mm Hg (8.0 kPa)) that persists despite outpatient and observation care treatment [ ]c) Worsening of pre-existing hypoxemia (eg, new or increased requirement for supplemental oxygen to maintain oxygenation at baseline level) that persists despite outpatient and observation care treatment, with oxygen treatment needs performable only in acute inpatient setting [ ]d) Hypercarbia (PCO2 greater than 40 mm Hg (5.3 kPa))-induced respiratory acidosis (pH less than 7.35) that persists despite outpatient and observation care treatment [ ]e) Supplemental oxygen or respiratory treatments for over 24 hours that are performable only in acute inpatient setting [ ]f) Chest tube placement with active evacuation (e.g., suction, drainage) (5) [ ]g) Other condition, treatment or monitoring requiring inpatient admission [ ]III. Planned invasive surgical or diagnostic procedures requiring acute- care hospitalization [ ]IV. Acute respiratory failure (e.g., uncompensated hypercarbia, severe hypoxemia) [ ]V. Severe comorbid condition (e.g., severe steroid myopathy, acute vertebral fracture) that has acutely worsened pulmonary function [ ]. Confusion state, lethargy, obtundation, stupor or coma Extended stay beyond goal length of stay may be needed for (31)(32): [ ]a ) Respiratory Failure. [ ]b) Severe or persisting hypoxemia or hypercarbia [ ]c) Severe or persistent dyspnea [ ]d) Comorbidities (e.g. chronic heart failure, atrial fibrillation with rapid response, pneumonia) [ ]e) Malnutrition The original [facility] content created by [facility] has been revised. The portions of the content which have been revised are identified through the use of italic text or in bold, and [facility] has neither reviewed nor approved the modified material. All other unmodified content is copyright [facility]. Please see references footnoted in the original [facility] edition 2016 Admission Criteria Met: Yes
[2017-03-17] MEDS: LOVENOX SUB-Q SCH (12:00)
[2017-03-17] MEDS: ASPIRIN PO SCH (12:00)
[2017-03-17] MEDS: NORCO 5/325 PO PRN ×2 (12:13→21:15)
--- NOTE | 2017-03-17 15:11 | Consultation ---
History of Present Illness Consult date: 03/17/17 Requesting physician: AUGUSTINA URENA Reason for consult: COPD Past History Past Medical History: COPD, hypertension, hyperlipidemia Medications and Allergies Allergies Allergy/AdvReac Type Severity Reaction Status Date / Time atenolol Allergy Unknown Verified 02/24/17 14:11 cefuroxime axetil Allergy Hives Verified 02/24/17 14:11 [From Ceftin] duloxetine HCl Allergy Unknown Verified 02/24/17 14:11 [From Cymbalta] gabapentin [From Neurontin] Allergy Rash Verified 02/24/17 14:11 ketoconazole Allergy Shortness Verified 02/24/17 14:11 of Breath levofloxacin [From Levaquin] Allergy Hives Verified 02/24/17 14:11 lorazepam [From Ativan] Allergy Unknown Verified 02/24/17 14:11 rotigotine [From Neupro] Allergy Rash Verified 02/24/17 14:11 umeclidinium bromide Allergy Swelling Verified 02/24/17 14:11 [From Anoro Ellipta] vilanterol trifenatate Allergy Swelling Verified 02/24/17 14:11 [From Anoro Ellipta] albuterol AdvReac Unknown Verified 02/24/17 14:11 rivaroxaban [From Xarelto] AdvReac Bleeding Verified 02/24/17 14:11 Home Medications Medication Instructions Recorded Confirmed Last Taken Type Amiodarone [Cordarone 200 MG TAB] 200 mg PO BID #60 tablet 05/30/16 03/12/1705/21 Rx Multivitamin with Iron 1 each PO DAILY #30 tablet 05/30/16 03/12/17 03/11/17 Rx [Multivitamins with Iron] Simvastatin [Zocor TAB] 40 mg PO QHS #30 tablet 05/30/16 03/12/17 03/11/17 Rx Venlafaxine Xr [Effexor XR] 150 mg PO BID #60 capsule 05/30/16 03/12/17 Rx rOPINIRole [Requip] 5 mg PO TID #30 tablet 05/30/16 03/12/17 03/11/17 Rx Furosemide [Lasix TAB] 40 mg PO BID #60 tablet 10/07/16 03/12/17 03/11/17 Rx Levalbuterol HCl [Levalbuterol 45 mcg IH QID #60 vial.neb 10/07/16 03/12/1705/21 Rx Concentrate] Prednisone [predniSONE 5 mg (6-Day 5 mg PO .TAPER #1 tab.ds.pk 03/03/1703/11/17 Rx Pack, 21 Tabs)] oxyCODONE /ACETAMINOPHEN [Percocet 1 tab PO Q6H PRN #20 tablet 03/03/17 Unknown Rx 5/325 mg] ALPRAZolam [Xanax TAB] 1 mg PO TID 03/12/17 03/12/17 03/11/17 History Diltiazem [Cardizem] 60 mg PO QDAY 03/12/17 03/12/17 03/11/17 History Potassium Chloride [K-Dur] 1 tab PO QDAY 03/12/17 03/12/17 03/11/17 History Ranitidine HCl [Zantac 150 MG TAB] 150 mg PO BID 03/12/17 03/12/17 03/11/17 History Spironolactone [Aldactone] 25 mg PO QDAY 03/12/17 03/12/17 03/11/17 History Symbicort 80-4.5 (Nf) 1 puff PO PRN 03/12/17 03/12/17 03/11/17 History Active Meds: Active Medications Acetaminophen/Hydrocodone Bitart ([place] 5/325) 1 each PO Q6H PRN PRN Reason: Pain, Moderate (4-6) Last Admin: 03/17/17 12:13 Dose: 1 each Albuterol (Proventil) 2.5 mg IH Q4H PRN PRN Reason: Shortness Of Breath Aspirin (Aspirin) 325 mg PO QDAY [facility] Last Admin: 03/17/17 12:00 Dose: 325 mg Enoxaparin Sodium (Lovenox) 40 mg SUB-Q QDAY [facility] Last Admin: 03/17/17 12:00 Dose: 40 mg Ipratropium [place] (Atrovent) 0.5 mg IH Q4H [facility] Last Admin: 03/17/17 12:27 Dose: 0.5 mg Levalbuterol HCl (Xopenex) 1.25 mg IH Q4H [facility] Last Admin: 03/17/17 12:27 Dose: 1.25 mg Methylprednisolone Sodium Succinate (Solu-Medrol) 80 mg IV Q8HR ZOË Last Admin: 03/17/17 09:18 Dose: Not Given Physical Examination Vital signs: Vital Signs Pulse Ox 100 03/17/17 05:28 Results - Laboratory Findings CBC and BMP: 03/17/17 06:42 03/17/17 06:42 PT/INR, D-dimer PT 12.6 Sec. (12.2-14.9) 03/17/17 06:42 INR 0.95 (0.87-1.13) 03/17/17 06:42
[2017-03-17] MEDS: REQUIP PO SCH (19:27)
[2017-03-17] MEDS ORDERED: REQUIP PO SCH (20:00)
[2017-03-17] MEDS ORDERED: XOPENEX IH PRN (20:38)
[2017-03-18] MEDS: XOPENEX IH SCH ×2 (02:39→08:51)
[2017-03-18] MEDS: ATROVENT IH SCH ×2 (02:39→08:51)
[2017-03-18] MEDS: NORCO 5/325 PO PRN (03:32)
[2017-03-18] MEDS ORDERED: BROVANA NEBU IH SCH (08:00)
[2017-03-18] MEDS ORDERED: PULMICORT IH SCH (08:00)
--- NOTE | 2017-03-18 08:55 | Progress Note ---
Assessment and Plan Assessment and plan: 61-year-old woman with a past medical history of uncontrolled COPD, who presents with shortness of breath, wheezing, cough with sputum production, she was found to have oxygen saturation of 80% on room air was probably admitted 1. Acute hypoxic respiratory failure Continue oxygen supplementation 2. COPD with exacerbation Continue nebs, steroids, antibiotics, chest PT 3. Chronic diastolic CHF Not in exacerbation at the moment, continue chronic medications 4. Sciatica/chronic pain Continue analgesics 5. DVT prophylaxis Continue Lovenox Hospitalist Physical - Constitutional Vitals: Temp Pulse Resp BP Pulse Ox 97.9 F 75 20 120/62 97 03/18/17 08:04 03/18/17 08:48 03/18/17 08:48 03/18/17 08:04 03/18/17 08:48 General appearance: Present: mild distress Results - Labs CBC & Chem 7: 03/17/17 06:42 03/17/17 06:42 Labs: Laboratory Last Values WBC 9.9 K/mm3 (4.5-11.0) 03/17/17 06:42 RBC 4.29 M/mm3 (3.65-5.03) 03/17/17 06:42 Hgb 10.5 gm/dl (10.1-14.3) 03/17/17 06:42 Hct 33.8 % (30.3-42.9) 03/17/17 06:42 MCV 79 fl (79-97) 03/17/17 06:42 MCH 25 pg (28-32) L 03/17/17 06:42 MCHC 31 % (30-34) 03/17/17 06:42 RDW 22.4 % (13.2-15.2) H 03/17/17 06:42 Plt Count 244 K/mm3 (140-440) 03/17/17 06:42 Lymph % (Auto) 41.2 % (13.4-35.0) H 03/17/17 06:42 [place] % (Auto) 8.2 % (0.0-7.3) H 03/17/17 06:42 Eos % (Auto) 0.8 % (0.0-4.3) 03/17/17 06:42 Baso % (Auto) 0.1 % (0.0-1.8) 03/17/17 06:42 Lymph # 4.1 K/mm3 (1.2-5.4) 03/17/17 06:42 [place] # 0.8 K/mm3 (0.0-0.8) 03/17/17 06:42 Eos # 0.1 K/mm3 (0.0-0.4) 03/17/17 06:42 Baso # 0.0 K/mm3 (0.0-0.1) 03/17/17 06:42 Seg Neutrophils % 49.7 % (40.0-70.0) 03/17/17 06:42 Seg Neutrophils # 4.9 K/mm3 (1.8-7.7) 03/17/17 06:42 PT 12.6 Sec. (12.2-14.9) 03/17/17 06:42 INR 0.95 (0.87-1.13) 03/17/17 06:42 APTT 26.9 Sec. (24.2-36.6) 03/17/17 06:42 Sodium 139 mmol/L (137-145) 03/17/17 06:42 Potassium 4.2 mmol/L (3.6-5.0) 03/17/17 06:42 Chloride 97.5 mmol/L (98-107) L 03/17/17 06:42 Carbon Dioxide 29 mmol/L (22-30) 03/17/17 06:42 Anion Gap 17 mmol/L 03/17/17 06:42 BUN 13 mg/dL (7-17) 03/17/17 06:42 Creatinine 1.1 mg/dL (0.7-1.2) 03/17/17 06:42 Estimated GFR 51 ml/min 03/17/17 06:42 BUN/Creatinine Ratio 11.81 % 03/17/17 06:42 Glucose 92 mg/dL (65-100) 03/17/17 06:42 POC Glucose 247 (70-105) H 03/17/17 22:25 Calcium 8.9 mg/dL (8.4-10.2) 03/17/17 06:42 Magnesium 1.90 mg/dL (1.7-2.3) 03/17/17 06:42 Total Bilirubin 0.20 mg/dL (0.1-1.2) 03/17/17 06:42 Direct Bilirubin < 0.2 mg/dL (0-0.2) 03/17/17 06:42 AST 15 units/L (5-40) 03/17/17 06:42 ALT 15 units/L (7-56) 03/17/17 06:42 Alkaline Phosphatase 87 units/L (35-129) 03/17/17 06:42 Total Creatine Kinase 57 units/L (30-135) 03/17/17 06:42 CK-MB (CK-2) 1.6 ng/mL (0.0-4.0) 03/17/17 06:42 CK-MB (CK-2) Rel Index 2.8 (0-4) 03/17/17 06:42 Troponin T < 0.010 ng/mL (0.00-0.029) 03/17/17 06:42 NT-Pro-B Natriuret Pep 102.5 pg/mL (0-900) 03/17/17 06:42 Total Protein 5.8 g/dL (6.3-8.2) L 03/17/17 06:42 Albumin 3.8 g/dL (3.9-5) L 03/17/17 06:42 Albumin/Globulin Ratio 1.9 % 03/17/17 06:42
[2017-03-18] MEDS: LOVENOX SUB-Q SCH (09:23)
[2017-03-18] MEDS: REQUIP PO SCH (09:24)
[2017-03-18] MEDS: ASPIRIN PO SCH (09:24)
[2017-03-18 09:55] VITALS: BP 120/51
[2017-03-18] MEDS ORDERED: ZITHROMAX PO SCH (10:00)
[2017-03-18] MEDS ORDERED: DUONEB 0.5 MG-3 MG/3 ML SOLN IH SCH (12:00)
--- NOTE | 2017-03-18 12:05 | Discharge Summary ---
Providers - Providers Date of Admission: 03/17/17 09:44 Attending physician: GURU VASQUEZ MD Primary care physician: LNA Hospitalization Condition: Stable Hospital course: 61-year-old woman with a past medical history of uncontrolled COPD, who presents with shortness of breath, wheezing, cough with sputum production, she was found to have oxygen saturation of 80% on room air was promptly admitted, she was treated with steroids, antibiotics, nebulizer treatments, chest PT. She clinically improved, so much so that she improves much quicker than expected. She was able to walk down the hallway with no shortness of breath and she was weaned back to her home dose of oxygen which is 2 L. Discharge diagnosis Acute on chronic hypoxic respiratory failure COPD with exacerbation Chronic diastolic CHF Sciatica/chronic pain Morbid obesity Disposition: DISCHARGED TO HOME OR SELFCARE Time spent for discharge: 35 minutes Core Measure Documentation - Palliative Care Palliative Care/ Comfort Measures: Not Applicable - Core Measures Any of the following diagnoses?: none Exam - Constitutional Vitals: Temp Pulse Resp BP Pulse Ox 98.2 F 81 16 120/51 81 L 03/18/17 09:54 03/18/17 09:54 03/18/17 09:54 03/18/17 09:54 03/18/17 09:54 General appearance: Present: no acute distress, well-nourished - EENT Eyes: Present: PERRL ENT: hearing intact, clear oral mucosa - Neck Neck: Present: supple, normal ROM - Respiratory Respiratory effort: normal Respiratory: bilateral: CTA - Cardiovascular Heart Sounds: Present: S1 & S2. Absent: rub, click - Extremities Extremities: pulses symmetrical, No edema Peripheral Pulses: within normal limits - Abdominal General gastrointestinal: Present: soft, non-tender, non-distended, normal bowel sounds Female genitourinary: Present: normal - Integumentary Integumentary: Present: clear, warm, dry - Musculoskeletal Musculoskeletal: gait normal, strength equal bilaterally - Psychiatric Psychiatric: appropriate mood/affect, intact judgment & insight - Neurologic Neurologic: CNII-XII intact, moves all extremities Plan Follow up with: PRIMARY CARE, [Primary Care Provider] - 3-5 Days Prescriptions: Azithromycin [Zithromax TAB] 250 mg PO QDAY #4 tablet Prednisone [predniSONE 5 mg (6-Day Pack, 21 Tabs)] 5 mg PO .TAPER #1 tab.ds.pk
== END 2017-03-18 12:30 | disposition home or self-care (01) | DRG 189 ==
LOC: ED 05:03 → 4A 09:44
PROVIDERS: ADMIT Internal Medicine; ATTEND Internal Medicine
DX: J96.21 Acute and chronic respiratory failure with hypoxia (principal); J44.1 Chronic obstructive pulmonary disease with (acute) exacerbation; I50.32 Chronic diastolic (congestive) heart failure; Z68.41 Body mass index [BMI] 40.0-44.9, adult; G89.29 Other chronic pain; M54.30 Sciatica, unspecified side; E66.01 Morbid (severe) obesity due to excess calories; I11.0 Hypertensive heart disease with heart failure; K21.9 Gastro-esophageal reflux disease without esophagitis; M19.90 Unspecified osteoarthritis, unspecified site; G43.909 Migraine, unspecified, not intractable, without status migrainosus; E11.9 Type 2 diabetes mellitus without complications; F41.9 Anxiety disorder, unspecified; E78.5 Hyperlipidemia, unspecified; F32.9 Major depressive disorder, single episode, unspecified; G47.30 Sleep apnea, unspecified; I48.91 Unspecified atrial fibrillation; Z90.710 Acquired absence of both cervix and uterus
CPT/HCPCS: 36415; 71010; 80048; 80074; 82550; 82553; 82962; 83735; 83880; 84484; 85025; 85610; 85730; 93005; 93010; 94640; 94760; 96365; 96375; J0456; J1650; J2930; J3475; J7050

== ENCOUNTER 2017-03-19 10:31 | Emergency (ER) | payer MEDICARE ==
[2017-03-19] MEDS ORDERED: XOPENEX IH ONE ×6 (10:40→16:24)
[2017-03-19] MEDS ORDERED: ATROVENT IH ONE ×3 (10:40→11:33)
[2017-03-19] MEDS ORDERED: NACL 0.9% 500 ML 500 ML IV ONE (11:05)
--- NOTE | 2017-03-19 11:24 | Emergency Department Report ---
ED Shortness of Breath HPI - General Chief Complaint: Dyspnea/Respdistress Stated Complaint: DIFFICULTY BREATHING Time Seen by Provider: 03/19/17 11:02 Source: patient, EMS Mode of arrival: Stretcher Limitations: No Limitations - History of Present Illness MD Complaint: shortness of breath, cough, "asthma attack" -: Gradual Severity: severe Pain Scale: 7 Consistency: constant Improves With: oxygen, bronchodilators, upright position Worsens With: nothing Known History Of: COPD, asthma Context: recent URI Associated Symptoms: denies other symptoms Treatments Prior to Arrival: oxygen, bronchodilator - Related Data Home Oxygen Therapy: Yes Home Oxygen Amount: 3 Liters Home Medications Medication Instructions Recorded Confirmed Last Taken ALPRAZolam [Xanax TAB] 1 mg PO TID 03/12/17 03/19/17 03/19/17 Diltiazem [Cardizem] 60 mg PO QDAY 03/12/17 03/19/17 03/19/17 Potassium Chloride [K-Dur] 1 tab PO QDAY 03/12/17 03/19/17 03/19/17 Ranitidine HCl [Zantac 150 MG TAB] 150 mg PO BID 03/12/17 03/19/17 03/19/17 Spironolactone [Aldactone] 25 mg PO QDAY 03/12/17 03/19/17 03/19/17 Symbicort 80-4.5 (Nf) 1 puff PO PRN 03/12/17 03/19/17 03/19/17 Previous Rx's Medication Instructions Recorded Last Taken Type Amiodarone [Cordarone 200 MG TAB] 200 mg PO BID #60 tablet 05/30/16 03/19/17 Rx Multivitamin with Iron 1 each PO DAILY #30 tablet 05/30/16 03/19/17 Rx [Multivitamins with Iron] Simvastatin [Zocor TAB] 40 mg PO QHS #30 tablet 05/30/16 03/19/17 Rx Venlafaxine Xr [Effexor XR] 150 mg PO BID #60 capsule 05/30/16 03/19/17 Rx rOPINIRole [Requip] 5 mg PO TID #30 tablet 05/30/16 03/19/17 Rx Furosemide [Lasix TAB] 40 mg PO BID #60 tablet 10/07/16 03/19/17 Rx Levalbuterol HCl [Levalbuterol 45 mcg IH QID #60 vial.neb 10/07/16 03/19/17 Rx Concentrate] oxyCODONE /ACETAMINOPHEN [Percocet 1 tab PO Q6H PRN #20 tablet 03/03/17 Rx 5/325 mg] Azithromycin [Zithromax TAB] 250 mg PO QDAY #4 tablet 03/18/17 03/19/17 Rx Prednisone [predniSONE 5 mg (6-Day 5 mg PO .TAPER #1 tab.ds.pk 03/18/17 Rx Pack, 21 Tabs)] Allergies Allergy/AdvReac Type Severity Reaction Status Date / Time atenolol Allergy Unknown Verified 02/24/17 14:11 cefuroxime axetil Allergy Hives Verified 02/24/17 14:11 [From Ceftin] duloxetine HCl Allergy Unknown Verified 02/24/17 14:11 [From Cymbalta] gabapentin [From Neurontin] Allergy Rash Verified 02/24/17 14:11 ketoconazole Allergy Shortness Verified 02/24/17 14:11 of Breath levofloxacin [From Levaquin] Allergy Hives Verified 02/24/17 14:11 lorazepam [From Ativan] Allergy Unknown Verified 02/24/17 14:11 rotigotine [From Neupro] Allergy Rash Verified 02/24/17 14:11 umeclidinium bromide Allergy Swelling Verified 02/24/17 14:11 [From Anoro Ellipta] vilanterol trifenatate Allergy Swelling Verified 02/24/17 14:11 [From Anoro Ellipta] albuterol AdvReac Unknown Verified 02/24/17 14:11 rivaroxaban [From Xarelto] AdvReac Bleeding Verified 02/24/17 14:11 ED Review of Systems ROS: Stated complaint: DIFFICULTY BREATHING Other details as noted in HPI Comment: All other systems reviewed and negative ED Past Medical Hx - Past Medical History Previous Medical History?: Yes Hx Hypertension: Yes Hx Congestive Heart Failure: Yes Hx Diabetes: Yes Hx GERD: Yes (Darby's esophagus) Hx Arthritis: Yes Hx Headaches / Migraines: Yes Hx Psychiatric Treatment: Yes (anxiety/panic attacks, depression) Hx Asthma: Yes Hx COPD: Yes Hx HIV: No Additional medical history: chronic back problems/pain cardiac mass 06/2015. restless leg syndrome,. sleep apnea. pituitary gland tumor. A-Fib. Epicardial fat pad "cardiac mass". CARDIAC MASS. REYNAUD'S DISEASE - Surgical History Past Surgical History?: Yes Hx Coronary Stent: Yes Additional Surgical History: hysterectomy, , all teeth removed, cataract surgery, upper gi surgery, PAT ablation r) greater saphenous, PORT in and PORT out, HEART CATH, VASCULAR SURGERY rt leg.Raynards, Rt and left leg stents in [facility] - Social History Smoking Status: Former Smoker Substance Use Type: None - Medications Home Medications: Home Medications Medication Instructions Recorded Confirmed Last Taken Type Amiodarone [Cordarone 200 MG TAB] 200 mg PO BID #60 tablet 05/30/16 03/19/17 Rx Multivitamin with Iron 1 each PO DAILY #30 tablet 05/30/16 03/19/17 03/19/17 Rx [Multivitamins with Iron] Simvastatin [Zocor TAB] 40 mg PO QHS #30 tablet 05/30/16 03/19/17 03/19/17 Rx Venlafaxine Xr [Effexor XR] 150 mg PO BID #60 capsule 05/30/16 03/19/17 Rx rOPINIRole [Requip] 5 mg PO TID #30 tablet 05/30/16 03/19/17 03/19/17 Rx Furosemide [Lasix TAB] 40 mg PO BID #60 tablet 10/07/16 03/19/17 03/19/17 Rx Levalbuterol HCl [Levalbuterol 45 mcg IH QID #60 vial.neb 10/07/16 03/19/17 Rx Concentrate] oxyCODONE /ACETAMINOPHEN [Percocet 1 tab PO Q6H PRN #20 tablet 03/03/1703/19/17 Rx 5/325 mg] ALPRAZolam [Xanax TAB] 1 mg PO TID 03/12/17 03/19/17 03/19/17 History Diltiazem [Cardizem] 60 mg PO QDAY 03/12/17 03/19/17 03/19/17 History Potassium Chloride [K-Dur] 1 tab PO QDAY 03/12/17 03/19/17 03/19/17 History Ranitidine HCl [Zantac 150 MG TAB] 150 mg PO BID 03/12/17 03/19/17 03/19/17 History Spironolactone [Aldactone] 25 mg PO QDAY 03/12/17 03/19/17 03/19/17 History Symbicort 80-4.5 (Nf) 1 puff PO PRN 03/12/17 03/19/17 03/19/17 History Azithromycin [Zithromax TAB] 250 mg PO QDAY #4 tablet 03/18/17 03/19/17 Rx Prednisone [predniSONE 5 mg (6-Day 5 mg PO .TAPER #1 tab.ds.pk 03/18/1703/19/17 Rx Pack, 21 Tabs)] ED Physical Exam - General Limitations: No Limitations General appearance: alert, in distress - Head Head exam: Present: atraumatic, normocephalic - Eye Eye exam: Present: normal appearance - ENT ENT exam: Present: mucous membranes moist - Neck Neck exam: Present: normal inspection - Respiratory Respiratory exam: Present: respiratory distress, wheezes, rhonchi, decreased breath sounds - Cardiovascular Cardiovascular Exam: Present: regular rate, normal rhythm. Absent: systolic murmur, diastolic murmur, rubs, gallop - GI/Abdominal GI/Abdominal exam: Present: soft, normal bowel sounds - Extremities Exam Extremities exam: Present: normal inspection - Back Exam Back exam: Present: normal inspection - Neurological Exam Neurological exam: Present: alert, oriented X3 - Psychiatric Psychiatric exam: Present: normal affect, normal mood - Skin Skin exam: Present: warm, dry, intact, normal color. Absent: rash ED Course Vital Signs 03/19/17 03/19/17 03/19/17 10:40 10:59 11:36 Temperature 98.1 F Pulse Rate 99 H Pulse Rate [ 85 Anterior Middle Lobe] Respiratory 20 Rate Respiratory 24 Rate [Anterior Middle Lobe] Blood Pressure 146/73 O2 Sat by Pulse 99 99 Oximetry 03/19/17 03/19/17 03/19/17 12:06 16:21 16:38 Temperature Pulse Rate Pulse Rate [ 94 H 98 H 99 H Anterior Middle Lobe] Respiratory Rate Respiratory 20 22 20 Rate [Anterior Middle Lobe] Blood Pressure O2 Sat by Pulse Oximetry ED Medical Decision Making - Lab Data Result diagrams: 03/19/17 11:15 03/19/17 11:15 - Medical Decision Making patient was going to be admitted to dr. prieto for copd excacerbation , but upon examining her he decided to discharge her, will print paperwork and send her home with close follow up. Critical care attestation.: If time is entered above; I have spent that time in minutes in the direct care of this critically ill patient, excluding procedure time. ED Disposition Clinical Impression: COPD with acute exacerbation Disposition: DISCHARGED TO HOME OR SELFCARE Is pt being admited?: No Does the pt Need Aspirin: No Condition: Good Instructions: Chronic Obstructive Pulmonary Disease (ED) Time of Disposition: 16:47
[2017-03-19 11:38] LABS: Basophils % (Auto) 0.1 % (0.0-1.8); Hematocrit 34.5 % (30.3-42.9); Hemoglobin 11.1 gm/dl (10.1-14.3); Mean Corpuscular HGB Conc 32 % (30-34); Mean Corpuscular Volume 76 fl (79-97); Platelet Count 294 K/mm3 (140-440); Red Blood Count 4.55 M/mm3 (3.65-5.03); White Blood Count 9.6 K/mm3 (4.5-11.0)
[2017-03-19 11:47] LABS: Mean Corpuscular Hemoglobin 24 pg (28-32); Red Cell Distribution Width 22.1 % (13.2-15.2)
--- NOTE | 2017-03-19 11:50 | XRay Report ---
PORTABLE CHEST INDICATION: Dyspnea. COMPARISON: 03/17/2017 FINDINGS: Portable, frontal chest radiograph demonstrates stable cardiomediastinal silhouette and slightly crowded lung markings centrally. Lungs otherwise unremarkable. Aortic knob calcifications. Stable bones. CONCLUSION: No acute disease or significant interval change, as described. Thank you for the opportunity to participate in this patient's care.
[2017-03-19 11:51] LABS: INR 1.08 (0.87-1.13)
[2017-03-19 11:52] LABS: Partial Thromboplastin Time 23.7 Sec. (24.2-36.6)
[2017-03-19 11:53] LABS: Creatine Kinase MB 1.8 ng/mL (0.0-4.0)
[2017-03-19 11:54] LABS: Alanine Aminotransferase 13 units/L (7-56); Albumin/Globulin Ratio 1.5 %; Alkaline Phosphatase 78 units/L (35-129); Anion Gap 19 mmol/L; Blood Urea Nitrogen 26 mg/dL (7-17); Calcium 9.4 mg/dL (8.4-10.2); Carbon Dioxide 25 mmol/L (22-30); Creatine Kinase 44 units/L (30-135); Glucose 97 mg/dL (65-100); Potassium 4.2 mmol/L (3.6-5.0); Sodium 142 mmol/L (137-145); Total Protein 6.7 g/dL (6.3-8.2)
--- NOTE | 2017-03-19 12:07 | Admit Criteria Form ---
Admission Criteria Documentation: RESPIRATORY FAILURE GRG Clinical Indications for Admission to Inpatient Care (Place 'X' for any and all applicable criteria): Hospital admission is needed for appropriate care of the patient because of acute respiratory failure or insufficiency as indicated by ANY ONE of the following(1)(2)(3)(4)(5)(6)(7)(8): [X ]I. Mechanical ventilation needed (acute invasive or noninvasive) [ ]II. Severe ventilation deficit as indicated by ANY ONE of the following (9) [ ]a) Respiratory acidosis (pH less than 7.32 and partial pressure of carbon dioxide greater than 40 mm Hg (5.3 kPa)) [ ]b) Partial pressure of carbon dioxide greater than 44 mm Hg (5.9 kPa ) (new) [ ]c) Airflow measurements less than 25% of predicted (eg, peak expiratory flow rate less than 100 L/minute) [ ]d) Forced vital capacity less than 15 mL/kg of ideal body weight, or 50% decrease in vital capacity from baseline [ ]III. Noncardiac pulmonary edema not resolving with rapid emergency treatment (8) [ ]IV. Severe respiratory distress as indicated by ANY ONE of the following: [ ]a) Severe tachypnea (respiratory rate greater than 30, greater than 45 for 6-month-old, greater than 60 for ) [ ]b) Severe hypoxemia (partial pressure of oxygen less than 50 mm Hg ( 6.7 kPa) on greater than 50% oxygen or partial pressure of oxygen to FIO2 ratio less than 200) [ ]c) Mental status deterioration from respiratory disease [ ]V. Airway obstruction or inadequate protection [A](10)(11) The original [employer] content created by [employer] has been revised. The portions of the content which have been revised are identified through the use of italic text or in bold, and [employer] has neither reviewed nor approved the modified material. All other unmodified content is copyright [employer]. Please see references footnoted in the original [employer] edition 2016 Admission Criteria Met: Yes
[2017-03-19] MEDS ORDERED: XANAX ONE (16:05)
[2017-03-19] MEDS ORDERED: XANAX PO ONE (16:24)
[2017-03-19 17:34] VITALS: BP 154/68
== END 2017-03-19 17:36 | disposition home or self-care (01) ==
LOC: ED 10:31
DX: J44.1 Chronic obstructive pulmonary disease with (acute) exacerbation (principal); I50.9 Heart failure, unspecified; E11.9 Type 2 diabetes mellitus without complications; M19.90 Unspecified osteoarthritis, unspecified site; G43.909 Migraine, unspecified, not intractable, without status migrainosus; F32.9 Major depressive disorder, single episode, unspecified; F41.9 Anxiety disorder, unspecified; J45.909 Unspecified asthma, uncomplicated; G89.29 Other chronic pain; Z90.710 Acquired absence of both cervix and uterus; Z95.818 Presence of other cardiac implants and grafts; Z87.891 Personal history of nicotine dependence; Z88.8 Allergy status to other drugs, medicaments and biological substances
CPT/HCPCS: 36415; 71010; 80053; 82550; 82553; 85025; 85610; 85730; 93005; 93010; 94640; 96374; 96376; 99284; J2930

== ENCOUNTER 2017-04-06 07:37 | Emergency (ER) | payer MEDICARE ==
[2017-04-06] MEDS ORDERED: NACL 0.9% 500 ML 500 ML IV ONE (10:09)
--- NOTE | 2017-04-06 10:19 | Emergency Department Report ---
- General Chief complaint: Weakness Stated complaint: WEAKNESS Time Seen by Provider: 04/06/17 09:48 Source: patient Mode of arrival: Wheelchair Limitations: Physical Limitation - History of Present Illness MD Complaint: generalized weakness, lack of energy, difficulty walking -: Gradual Time: 10:18 Location: generalized Severity: moderate Severity scale (0 -10): 5 Consistency: constant Worsens with: none (discharge yesterday from hospital) Associated Symptoms: confusion. denies: chest pain, dark stools, diaphoresis, dysuria, easy bruising, fever/chills, headaches, loss of appetite, nausea/ vomiting, myalgias, rash, shortness of breath - Related Data Home Medications Medication Instructions Recorded Confirmed Last Taken Diltiazem [Cardizem] 60 mg PO QDAY 03/12/17 04/01/17 03/31/17 Ranitidine HCl [Zantac 150 MG TAB] 150 mg PO BID 03/12/17 04/01/17 03/31/17 Spironolactone [Aldactone] 25 mg PO QDAY 03/12/17 04/01/17 03/31/17 Previous Rx's Medication Instructions Recorded Last Taken Type Amiodarone [Cordarone 200 MG TAB] 200 mg PO BID #60 tablet 05/30/16 03/31/17 Rx Simvastatin [Zocor TAB] 40 mg PO QHS #30 tablet 05/30/16 03/31/17 Rx Furosemide [Lasix TAB] 40 mg PO BID #60 tablet 10/07/16 03/31/17 Rx ALPRAZolam [Xanax TAB] 1 mg PO TID #60 tablet 04/05/17 Unknown Rx Amiodarone [Cordarone 200 MG TAB] 200 mg PO BID #30 tablet 04/05/17 Unknown Rx Diltiazem [Cardizem] 60 mg PO QDAY #30 tablet 04/05/17 Unknown Rx Famotidine [Pepcid] 20 mg PO BID #30 tablet 04/05/17 Unknown Rx Furosemide [Lasix TAB] 40 mg PO BID #30 tablet 04/05/17 Unknown Rx Levalbuterol HCl [Levalbuterol 45 mcg IH QID #60 vial.neb 04/05/17 Unknown Rx Concentrate] Oxycodone HCl/Acetaminophen 1 tab PO Q8H PRN #60 tablet 04/05/17 Unknown Rx [Percocet 10/325 mg] Potassium Chloride [K-Dur] 1 tab PO QDAY #30 tablet 04/05/17 Unknown Rx Simvastatin [Zocor TAB] 40 mg PO QHS #30 tablet 04/05/17 Unknown Rx Spironolactone [Aldactone] 25 mg PO QDAY #30 tablet 04/05/17 Unknown Rx Symbicort 80-4.5 (Nf) 1 puff PO PRN #1 04/05/17 Unknown Rx Venlafaxine Xr [Effexor XR] 150 mg PO BID #30 capsule 04/05/17 Unknown Rx Venlafaxine Xr [Effexor XR] 150 mg PO BID #60 capsule 04/05/17 Unknown Rx predniSONE [Deltasone] 10 mg PO .TAPER #48 tab 04/05/17 Unknown Rx rOPINIRole [Requip] 5 mg PO TID #90 tablet 04/05/17 Unknown Rx Allergies Allergy/AdvReac Type Severity Reaction Status Date / Time atenolol Allergy Unknown Verified 04/06/17 07:56 cefuroxime axetil Allergy Hives Verified 04/06/17 07:56 [From Ceftin] duloxetine HCl Allergy Unknown Verified 04/06/17 07:56 [From Cymbalta] gabapentin [From Neurontin] Allergy Rash Verified 04/06/17 07:56 ketoconazole Allergy Shortness Verified 04/06/17 07:56 of Breath levofloxacin [From Levaquin] Allergy Hives Verified 04/06/17 07:56 lorazepam [From Ativan] Allergy Unknown Verified 04/06/17 07:56 rotigotine [From Neupro] Allergy Rash Verified 04/06/17 07:56 umeclidinium bromide Allergy Swelling Verified 04/06/17 07:56 [From Anoro Ellipta] vilanterol trifenatate Allergy Swelling Verified 04/06/17 07:56 [From Anoro Ellipta] albuterol AdvReac Unknown Verified 04/06/17 07:56 rivaroxaban [From Xarelto] AdvReac Bleeding Verified 04/06/17 07:56 ED Review of Systems ROS: Stated complaint: WEAKNESS Other details as noted in HPI Comment: Unobtainable due to pts medical conditions ED Past Medical Hx - Past Medical History Hx Hypertension: Yes Hx Congestive Heart Failure: Yes Hx Diabetes: Yes Hx GERD: Yes (Darby's esophagus) Hx Arthritis: Yes Hx Headaches / Migraines: Yes Hx Psychiatric Treatment: Yes (anxiety/panic attacks, depression) Hx Asthma: Yes Hx COPD: Yes Hx HIV: No Additional medical history: chronic back problems/pain cardiac mass 06/2015. restless leg syndrome,. sleep apnea. pituitary gland tumor. A-Fib. Epicardial fat pad "cardiac mass". CARDIAC MASS. REYNAUD'S DISEASE - Surgical History Hx Coronary Stent: Yes Additional Surgical History: hysterectomy, , all teeth removed, cataract surgery, upper gi surgery, PAT ablation r) greater saphenous, PORT in and PORT out, HEART CATH, VASCULAR SURGERY rt leg.Raynards, Rt and left leg stents in [facility] - Social History Smoking Status: Former Smoker Substance Use Type: Prescribed - Medications Home Medications: Home Medications Medication Instructions Recorded Confirmed Last Taken Type Amiodarone [Cordarone 200 MG TAB] 200 mg PO BID #60 tablet 05/30/16 04/01/17 Rx Simvastatin [Zocor TAB] 40 mg PO QHS #30 tablet 05/30/16 04/01/17 03/31/17 Rx Furosemide [Lasix TAB] 40 mg PO BID #60 tablet 10/07/16 04/01/17 03/31/17 Rx Diltiazem [Cardizem] 60 mg PO QDAY 03/12/17 04/01/17 03/31/17 History Ranitidine HCl [Zantac 150 MG TAB] 150 mg PO BID 03/12/17 04/01/17 03/31/17 History Spironolactone [Aldactone] 25 mg PO QDAY 03/12/17 04/01/17 03/31/17 History ALPRAZolam [Xanax TAB] 1 mg PO TID #60 tablet 04/05/17 Unknown Rx Amiodarone [Cordarone 200 MG TAB] 200 mg PO BID #30 tablet 04/05/17 Unknown Rx Diltiazem [Cardizem] 60 mg PO QDAY #30 tablet 04/05/17 Unknown Rx Famotidine [Pepcid] 20 mg PO BID #30 tablet 04/05/17 Unknown Rx Furosemide [Lasix TAB] 40 mg PO BID #30 tablet 04/05/17 Unknown Rx Levalbuterol HCl [Levalbuterol 45 mcg IH QID #60 vial.neb 04/05/17 Unknown Rx Concentrate] Oxycodone HCl/Acetaminophen 1 tab PO Q8H PRN #60 tablet 04/05/17 Unknown Rx [Percocet 10/325 mg] Potassium Chloride [K-Dur] 1 tab PO QDAY #30 tablet 04/05/17 Unknown Rx Simvastatin [Zocor TAB] 40 mg PO QHS #30 tablet 04/05/17 Unknown Rx Spironolactone [Aldactone] 25 mg PO QDAY #30 tablet 04/05/17 Unknown Rx Symbicort 80-4.5 (Nf) 1 puff PO PRN #1 04/05/17 Unknown Rx Venlafaxine Xr [Effexor XR] 150 mg PO BID #30 capsule 04/05/17 Unknown Rx Venlafaxine Xr [Effexor XR] 150 mg PO BID #60 capsule 04/05/17 Unknown Rx predniSONE [Deltasone] 10 mg PO .TAPER #48 tab 04/05/17 Unknown Rx rOPINIRole [Requip] 5 mg PO TID #90 tablet 04/05/17 Unknown Rx ED Physical Exam - General Limitations: Physical Limitation General appearance: appears intoxicated, lethargic, obtunded - Head Head exam: Present: atraumatic, normocephalic - Eye Eye exam: Present: normal appearance, PERRL (no pinpoint pupils) - ENT ENT exam: Present: mucous membranes moist - Neck Neck exam: Present: normal inspection - Respiratory Respiratory exam: Present: wheezes, rhonchi. Absent: respiratory distress - Cardiovascular Cardiovascular Exam: Present: regular rate, normal rhythm. Absent: systolic murmur, diastolic murmur, rubs, gallop - GI/Abdominal GI/Abdominal exam: Present: soft, normal bowel sounds - Extremities Exam Extremities exam: Present: normal inspection - Back Exam Back exam: Present: normal inspection - Neurological Exam Neurological exam: Present: reflexes normal - Skin Skin exam: Present: warm, dry, intact, normal color. Absent: rash ED Course Vital Signs 04/06/17 04/06/17 04/06/17 07:56 08:11 08:20 Temperature 98.6 F Pulse Rate 86 81 Respiratory 22 20 Rate Blood Pressure 145/80 146/75 Blood Pressure [Left] O2 Sat by Pulse 99 99 97 Oximetry 04/06/17 04/06/17 04/06/17 08:30 08:40 08:47 Temperature 98.3 F Pulse Rate 81 83 84 Respiratory 22 19 19 Rate Blood Pressure 146/75 146/75 Blood Pressure 146/75 [Left] O2 Sat by Pulse 96 99 98 Oximetry 04/06/17 04/06/17 04/06/17 08:50 09:00 09:10 Temperature Pulse Rate 81 82 80 Respiratory 22 20 20 Rate Blood Pressure 146/75 126/64 126/64 Blood Pressure [Left] O2 Sat by Pulse 97 94 96 Oximetry 04/06/17 04/06/17 04/06/17 09:20 09:30 09:40 Temperature Pulse Rate 80 80 81 Respiratory 20 18 18 Rate Blood Pressure 126/64 126/64 126/64 Blood Pressure [Left] O2 Sat by Pulse 96 96 96 Oximetry 04/06/17 04/06/17 04/06/17 09:50 10:00 10:10 Temperature Pulse Rate 81 82 87 Respiratory 20 18 19 Rate Blood Pressure 126/64 132/65 132/65 Blood Pressure [Left] O2 Sat by Pulse 96 96 Oximetry 04/06/17 04/06/17 04/06/17 10:20 10:30 10:40 Temperature Pulse Rate Respiratory Rate Blood Pressure 132/65 132/65 132/65 Blood Pressure [Left] O2 Sat by Pulse 96 95 95 Oximetry 04/06/17 04/06/17 04/06/17 10:50 11:00 11:38 Temperature Pulse Rate Respiratory Rate Blood Pressure 132/65 132/65 132/65 Blood Pressure [Left] O2 Sat by Pulse 95 95 96 Oximetry 04/06/17 04/06/17 11:40 11:55 Temperature 98 F Pulse Rate 85 85 Respiratory 20 17 Rate Blood Pressure 113/63 Blood Pressure 113/63 [Left] O2 Sat by Pulse 94 95 Oximetry ED Medical Decision Making - Lab Data Result diagrams: 04/06/17 10:17 04/06/17 10:17 - EKG Data -: EKG Interpreted by Me EKG shows normal: sinus rhythm - EKG Data Interpretation: no acute changes - Radiology Data Radiology results: report reviewed, image reviewed - Medical Decision Making patient awake at this time , talking full sentence , no complaints at thsi time , her is here and will go home , we talked about readmitting her again but she prefers going home, also discuss case with Dr. Bynum and he will not admit her again,. Critical care attestation.: If time is entered above; I have spent that time in minutes in the direct care of this critically ill patient, excluding procedure time. ED Disposition Clinical Impression: Anxiety and depression Disposition: DISCHARGED TO HOME OR SELFCARE Is pt being admited?: No Does the pt Need Aspirin: No Condition: Good Referrals: PRIMARY CARE, [Primary Care Provider] - 3-5 Days Time of Disposition: 13:56
[2017-04-06 10:39] LABS: Hematocrit 39.3 % (30.3-42.9); Hemoglobin 12.6 gm/dl (10.1-14.3); Mean Corpuscular HGB Conc 32 % (30-34); Mean Corpuscular Volume 78 fl (79-97); Platelet Count 184 K/mm3 (140-440); Red Blood Count 5.06 M/mm3 (3.65-5.03); White Blood Count 19.3 K/mm3 (4.5-11.0)
[2017-04-06 10:40] LABS: Mean Corpuscular Hemoglobin 25 pg (28-32)
[2017-04-06 10:58] LABS: Alanine Aminotransferase 17 units/L (7-56); Albumin 3.7 g/dL (3.9-5); Albumin/Globulin Ratio 1.6 %; Alkaline Phosphatase 66 units/L (35-129); Anion Gap 16 mmol/L; BUN/Creatinine Ratio 37.77; Blood Urea Nitrogen 34 mg/dL (7-17); Calcium 8.9 mg/dL (8.4-10.2); Carbon Dioxide 31 mmol/L (22-30); Chloride 93.2 mmol/L (98-107); Creatine Kinase 37 units/L (30-135); Glucose 147 mg/dL (65-100); Sodium 136 mmol/L (137-145)
[2017-04-06 11:04] LABS: Potassium 4.2 mmol/L (3.6-5.0)
[2017-04-06 11:36] LABS: Basophils % (Manual) 0 % (0.0-1.8); Blastocytes % (Manual) 0 %; Eosinophils % (Manual) 0 % (0.0-4.3)
[2017-04-06 11:37] LABS: Anisocytosis 1+; Giant Platelets Rare; Hypochromasia 1+; Large Platelets Few; Platelet Estimate Consistent w Auto
[2017-04-06 11:38] LABS: Diff Status Complete; Ovalocytes Few; Poikilocytosis Few; Tear Drop Cells Few
--- NOTE | 2017-04-06 11:41 | Cat Scan Report ---
CT HEAD WITHOUT CONTRAST INDICATION: Altered mental status. COMPARISON: 04/04/2017. FINDINGS: Noncontrast head CT demonstrates stable normal ventricles and age-appropriate, mildly enlarged sulci. No acute infarct, hemorrhage, mass effect or midline shift. No abnormal extra axial fluid collections. Normal posterior fossa with preserved basilar cisterns. Bilateral cataract surgery. Left ethmoid air cell opacification anteriorly. Clear remainder imaged paranasal sinuses and mastoid air cells. Mild hyperostosis frontalis interna. Otherwise unremarkable calvarium and scalp. Edentulous jaw. CONCLUSION: No acute intracranial CT abnormality or significant interval change, as described. Thank you for the opportunity to participate in this patient's care.
[2017-04-06 11:51] LABS: ISTAT Base Excess 11; ISTAT HCO3 34.8; ISTAT PCO2 47.3 (35-45); ISTAT PH 7.475 (7.35-7.45); ISTAT PO2 72 (80-105); ISTAT SO2 95; ISTAT TCO2 36
--- NOTE | 2017-04-06 12:14 | Admit Criteria Form ---
Admission Criteria Documentation: RESPIRATORY FAILURE GRG Clinical Indications for Admission to Inpatient Care (Place 'X' for any and all applicable criteria): Hospital admission is needed for appropriate care of the patient because of acute respiratory failure or insufficiency as indicated by ANY ONE of the following(1)(2)(3)(4)(5)(6)(7)(8): [ ]I. Mechanical ventilation needed (acute invasive or noninvasive) [X ]II. Severe ventilation deficit as indicated by ANY ONE of the following (9 ) [ ]a) Respiratory acidosis (pH less than 7.32 and partial pressure of carbon dioxide greater than 40 mm Hg (5.3 kPa)) [ X]b) Partial pressure of carbon dioxide greater than 44 mm Hg (5.9 kPa) (new) [ ]c) Airflow measurements less than 25% of predicted (eg, peak expiratory flow rate less than 100 L/minute) [ ]d) Forced vital capacity less than 15 mL/kg of ideal body weight, or 50% decrease in vital capacity from baseline [ ]III. Noncardiac pulmonary edema not resolving with rapid emergency treatment (8) [ ]IV. Severe respiratory distress as indicated by ANY ONE of the following: [ ]a) Severe tachypnea (respiratory rate greater than 30, greater than 45 for 6-month-old, greater than 60 for ) [ ]b) Severe hypoxemia (partial pressure of oxygen less than 50 mm Hg ( 6.7 kPa) on greater than 50% oxygen or partial pressure of oxygen to FIO2 ratio less than 200) [ ]c) Mental status deterioration from respiratory disease [ ]V. Airway obstruction or inadequate protection [A](10)(11) The original [employer] content created by [employer] has been revised. The portions of the content which have been revised are identified through the use of italic text or in bold, and [email or web address] has neither reviewed nor approved the modified material. All other unmodified content is copyright [employer]. Please see references footnoted in the original [employer] edition 2016
[2017-04-06 14:37] VITALS: BP 130/74
== END 2017-04-06 14:37 | disposition home or self-care (01) ==
LOC: ED 07:37
DX: F41.9 Anxiety disorder, unspecified (principal); F32.9 Major depressive disorder, single episode, unspecified; I10 Essential (primary) hypertension; I50.9 Heart failure, unspecified; E11.9 Type 2 diabetes mellitus without complications; K21.9 Gastro-esophageal reflux disease without esophagitis; G43.909 Migraine, unspecified, not intractable, without status migrainosus; J45.909 Unspecified asthma, uncomplicated; G89.29 Other chronic pain; G25.81 Restless legs syndrome; I48.91 Unspecified atrial fibrillation; Z87.891 Personal history of nicotine dependence
CPT/HCPCS: 36415; 70450; 80053; 82140; 82550; 82803; 84443; 84484; 85007; 85025; 93005; 93010; 96360; 96361; 99285; G0480; J7040; 80320

== ENCOUNTER 2017-04-21 04:12 | Emergency (ER) | payer MEDICARE ==
[2017-04-21 05:15] VITALS: BP 154/91
== END 2017-04-21 04:40 | disposition left against medical advice (07) ==
LOC: ED 04:12
DX: R73.9 Hyperglycemia, unspecified (principal); Z53.21 Procedure and treatment not carried out due to patient leaving prior to being seen by health care provider
CPT/HCPCS: 82962

== ENCOUNTER 2017-05-09 19:29 | Emergency (ER) | payer MEDICARE ==
[2017-05-09 19:48] VITALS: BP 146/82
--- NOTE | 2017-05-10 07:22 | XRay Report ---
Chest 2 views: History: Chest pain/SOB. Findings: Borderline cardiomegaly. Trachea is midline. No consolidation, pneumothorax or pleural effusion. Impression: No acute cardiopulmonary findings
--- NOTE | 2017-05-12 19:59 | ED Elopement Review ---
ED Pt Elopement review - Call Back decision Pt Call Back Decision: No action required
== END 2017-05-09 20:40 | disposition left against medical advice (07) ==
LOC: ED 19:29
DX: R07.9 Chest pain, unspecified (principal); Z53.21 Procedure and treatment not carried out due to patient leaving prior to being seen by health care provider
CPT/HCPCS: 71020; 93005; 93010

== ENCOUNTER 2017-07-11 19:57 | Inpatient (IN) | payer MEDICARE ==
[2017-07-11 20:10] LABS: Hematocrit 37.2 % (30.3-42.9); Hemoglobin 11.5 gm/dl (10.1-14.3); Mean Corpuscular HGB Conc 31 % (30-34); Mean Corpuscular Volume 78 fl (79-97); Platelet Count 316 K/mm3 (140-440); Red Blood Count 4.74 M/mm3 (3.65-5.03); White Blood Count 14.2 K/mm3 (4.5-11.0)
[2017-07-11 20:14] LABS: Mean Corpuscular Hemoglobin 24 pg (28-32); Red Cell Distribution Width 22.2 % (13.2-15.2)
--- NOTE | 2017-07-11 20:17 | Emergency Department Report ---
ED Neuro Deficit HPI - General Chief Complaint: Neuro Symptoms/Deficit Stated Complaint: POSSIBLE CVA Time Seen by Provider: 07/11/17 20:02 Source: EMS Mode of arrival: Stretcher Limitations: Physical Limitation - History of Present Illness Initial Comments: 18 years old female history of diabetes COPD chronic A. fib hypertension controlled by EMS as a code stroke symptoms to started at 1900 this evening witnessed by family. Symptoms include left facial droop left upper and lower extremity weakness and aphasia. Patient did not have any history of stroke before. Onset/Timin,900 -: Sudden Time: 19:00 Location: speech, left face, dysarthria, left arm, left leg Presenting Symptoms: Present: Weak/Paralyzed One Side, Facial Droop/Numbness, Unable to Speak Clearly History of same: No Place: home Severity: severe Quality: weak Improves With: none Context: sudden onset - Related Data Home Medications: Home Medications Medication Instructions Recorded Confirmed Last Taken Aspirin [Aspirin BABY CHEW TAB] 81 mg PO QDAY 07/11/17 07/11/17 07/11/17 Bupropion HCl [Wellbutrin XL] 300 mg PO QAM 07/11/17 07/11/17 07/11/17 Diltiazem [Cardizem] 180 mg PO QDAY 07/11/17 07/11/17 07/11/17 Hydrocortisone 2.5% [Proctosol-Hc] 28.35 gm AR DAILY 07/11/17 07/11/17 07/11/17 Levalbuterol HCl [Xopenex] 1.25 mg IH DAILY 07/11/17 07/11/17 07/11/17 Levalbuterol Hfa 45 Mcg/Puff 2 puff IH Q4H 07/11/17 07/11/17 07/11/17 [Xopenex Hfa (Nf)] Magnesium Oxide [Magnesium] 400 mg PO DAILY 07/11/17 07/11/17 07/11/17 Omeprazole Magnesium [PriLOSEC Otc] 20 mg PO QDAY 07/11/17 07/11/17 07/11/17 glipiZIDE [Glucotrol] 5 mg PO BID 07/11/17 07/11/17 07/11/17 Previous Rx's Medication Instructions Recorded Last Taken Type ALPRAZolam [Xanax TAB] 1 mg PO TID #60 tablet 04/05/17 07/11/17 Rx Amiodarone [Cordarone 200 MG TAB] 200 mg PO BID #30 tablet 04/05/17 07/11/17 Rx Furosemide [Lasix TAB] 40 mg PO BID #30 tablet 04/05/17 07/11/17 Rx Potassium Chloride [K-Dur] 1 tab PO QDAY #30 tablet 04/05/17 07/11/17 Rx Spironolactone [Aldactone] 25 mg PO QDAY #30 tablet 04/05/17 07/11/17 Rx Venlafaxine Xr [Effexor XR] 150 mg PO BID #60 capsule 04/05/17 07/11/17 Rx predniSONE [Deltasone] 10 mg PO .TAPER #48 tab 04/05/17 07/11/17 Rx rOPINIRole [Requip] 5 mg PO TID #90 tablet 04/05/17 07/11/17 Rx Allergies/Adverse Reactions: Allergies Allergy/AdvReac Type Severity Reaction Status Date / Time atenolol Allergy Unknown Verified 04/06/17 07:56 cefuroxime axetil Allergy Hives Verified 04/06/17 07:56 [From Ceftin] duloxetine HCl Allergy Unknown Verified 04/06/17 07:56 [From Cymbalta] gabapentin [From Neurontin] Allergy Rash Verified 04/06/17 07:56 ketoconazole Allergy Shortness Verified 04/06/17 07:56 of Breath levofloxacin [From Levaquin] Allergy Hives Verified 04/06/17 07:56 lorazepam [From Ativan] Allergy Unknown Verified 04/06/17 07:56 rotigotine [From Neupro] Allergy Rash Verified 04/06/17 07:56 umeclidinium bromide Allergy Swelling Verified 04/06/17 07:56 [From Anoro Ellipta] vilanterol trifenatate Allergy Swelling Verified 04/06/17 07:56 [From Anoro Ellipta] albuterol AdvReac Unknown Verified 04/06/17 07:56 rivaroxaban [From Xarelto] AdvReac Bleeding Verified 04/06/17 07:56 ED Review of Systems ROS: Stated complaint: POSSIBLE CVA Other details as noted in HPI Comment: Unobtainable due to pts medical conditions ED Past Medical Hx - Past Medical History Hx Hypertension: Yes Hx Congestive Heart Failure: Yes Hx Diabetes: Yes Hx GERD: Yes (Darby's esophagus) Hx Arthritis: Yes Hx Headaches / Migraines: Yes Hx Psychiatric Treatment: Yes (anxiety/panic attacks, depression) Hx Asthma: Yes Hx COPD: Yes Hx HIV: No Additional medical history: chronic back problems/pain cardiac mass 06/2015. restless leg syndrome,. sleep apnea. pituitary gland tumor. A-Fib, fatty liver. Epicardial fat pad "cardiac mass". CARDIAC MASS. REYNAUD'S DISEASE - Surgical History Hx Coronary Stent: Yes Additional Surgical History: hysterectomy, , all teeth removed, cataract surgery, upper gi surgery, PAT ablation r) greater saphenous, PORT in and PORT out, HEART CATH, VASCULAR SURGERY rt leg.Raynards, Rt and left leg stents in [facility] - Social History Smoking Status: Never Smoker Substance Use Type: None - Medications Home Medications: Home Medications Medication Instructions Recorded Confirmed Last Taken Type ALPRAZolam [Xanax TAB] 1 mg PO TID #60 tablet 04/05/17 07/11/17 07/11/17 Rx Amiodarone [Cordarone 200 MG TAB] 200 mg PO BID #30 tablet 04/05/17 07/11/1704/21 Rx Furosemide [Lasix TAB] 40 mg PO BID #30 tablet 04/05/17 07/11/17 07/11/17 Rx Potassium Chloride [K-Dur] 1 tab PO QDAY #30 tablet 04/05/17 07/11/17 07/11/17 Rx Spironolactone [Aldactone] 25 mg PO QDAY #30 tablet 04/05/17 07/11/17 07/11/17 Rx Venlafaxine Xr [Effexor XR] 150 mg PO BID #60 capsule 04/05/17 07/11/17 Rx predniSONE [Deltasone] 10 mg PO .TAPER #48 tab 04/05/17 07/11/17 07/11/17 Rx rOPINIRole [Requip] 5 mg PO TID #90 tablet 04/05/17 07/11/17 07/11/17 Rx Aspirin [Aspirin BABY CHEW TAB] 81 mg PO QDAY 07/11/17 07/11/17 07/11/17 History Bupropion HCl [Wellbutrin XL] 300 mg PO QAM 07/11/17 07/11/17 07/11/17 History Diltiazem [Cardizem] 180 mg PO QDAY 07/11/17 07/11/17 07/11/17 History Hydrocortisone 2.5% [Proctosol-Hc] 28.35 gm AR DAILY 07/11/17 07/11/17 07/11/17 History Levalbuterol HCl [Xopenex] 1.25 mg IH DAILY 07/11/17 07/11/17 07/11/17 History Levalbuterol Hfa 45 Mcg/Puff 2 puff IH Q4H 07/11/17 07/11/17 07/11/17 History [Xopenex Hfa (Nf)] Magnesium Oxide [Magnesium] 400 mg PO DAILY 07/11/17 07/11/17 07/11/17 History Omeprazole Magnesium [PriLOSEC Otc] 20 mg PO QDAY 07/11/17 07/11/17 07/11/17 History glipiZIDE [Glucotrol] 5 mg PO BID 07/11/17 07/11/17 07/11/17 History ED Neuro Physical Exam - General Limitations: Language Barrier, Physical Limitation General appearance: alert Suspected Stroke: Yes - Head Head exam: Present: atraumatic, normocephalic - Eye Eye exam: Present: normal appearance Pupils: Present: normal accommodation - ENT ENT exam: Present: normal exam - Neck Neck exam: Present: normal inspection, full ROM. Absent: tenderness, meningismus, lymphadenopathy - Respiratory Respiratory exam: Present: normal lung sounds bilaterally. Absent: wheezes, rales, rhonchi - Cardiovascular Cardiovascular Exam: Present: irregular rhythm - GI/Abdominal GI/Abdominal exam: Present: soft. Absent: tenderness, guarding, rebound, rigid - Back Exam Back exam: Present: normal inspection. Absent: CVA tenderness (R), CVA tenderness (L) - Neurological Exam Neurological exam: Present: alert - NIHSS Assessment Interval: Baseline 1a. Level of Consciousness: alert 1b. LOC Questions: answers no questions correctly 1c. LOC Commands: performs 1 task correctly 2. Best Gaze: partial gaze palsy 3. Visual: no visual loss 4. Facial Palsy: complete paralysis 5b. Motor Arm Right: no drift 5a. Motor Arm Left: drift 6a. Motor Leg Left: drift 6b. Motor Leg Right: no drift 7. Limb Ataxia: present 1 limb 8. Sensory: mild/moderate sensory loss 9. Best Language: severe aphasia 10. Dysarthria: mild/moderate dysarthria 11. Extinction/Inattention: profound inattention Total Score: 16 Stroke Severity: Moderate to Severe Stroke - Skin Skin exam: Present: warm, intact, normal color ED Course Vital Signs 07/11/17 07/11/17 07/11/17 20:11 20:14 20:15 Temperature 98.0 F Pulse Rate 80 Respiratory 17 Rate Blood Pressure 152/67 152/67 159/84 Blood Pressure 152/67 [Right] O2 Sat by Pulse 95 95 99 Oximetry 07/11/17 07/11/17 07/11/17 20:30 20:45 21:00 Temperature Pulse Rate 85 83 78 Respiratory 20 17 20 Rate Blood Pressure 159/74 131/74 Blood Pressure [Right] O2 Sat by Pulse 100 98 99 Oximetry 07/11/17 21:11 Temperature Pulse Rate Respiratory Rate Blood Pressure Blood Pressure [Right] O2 Sat by Pulse 100 Oximetry - Reevaluation(s) Reevaluation #1: 07/11/17 20:[address] Browning for telemetry neurology he will examine the patient via telemetry neurology. Reassessment at 2030 patient started moving her left upper and lower extremity but still weak, she still have left facial droop and dysarthria Reevaluation #2: 07/11/17 21:[address] Beltran from via Telemetry neurology. He stated that patient is not a TPA candidate since the patient had recent GI bleed, patient stated that she has a bleeding hemorrhoid and her symptoms is improving rapidly. He advised patient to be admitted to the hospital for stroke workup. Reevaluation #3: 07/11/17 21:[address] Jennifer Gómez, I presented the patient to her, she agreed to admit the patient to her service. - Lab Data Result diagrams: 07/11/17 20:00 07/11/17 20:00 Lab Results 07/11/17 07/11/17 07/11/17 Range/Units 20:00 20:00 20:00 WBC 14.2 H (4.5-11.0) K/mm3 RBC 4.74 (3.65-5.03) M/mm3 Hgb 11.5 (10.1-14.3) gm/dl Hct 37.2 (30.3-42.9) % MCV 78 L (79-97) fl MCH 24 L (28-32) pg MCHC 31 (30-34) % RDW 22.2 H (13.2-15.2) % Plt Count 316 (140-440) K/mm3 Add Manual Diff Complete Total Counted 100 Seg Neuts % (Manual) 64.0 (40.0-70.0) % Band Neutrophils % 0 % Lymphocytes % (Manual) 27.0 (13.4-35.0) % Reactive Lymphs % (Man) 0 % Monocytes % (Manual) 9.0 H (0.0-7.3) % Eosinophils % (Manual) 0 (0.0-4.3) % Basophils % (Manual) 0 (0.0-1.8) % Metamyelocytes % 0 % Myelocytes % 0 % Promyelocytes % 0 % Blast Cells % 0 % Nucleated RBC % Not Reportable Seg Neutrophils # Man 9.1 H (1.8-7.7) K/mm3 Band Neutrophils # 0.0 K/mm3 Lymphocytes # (Manual) 3.8 (1.2-5.4) K/mm3 Abs React Lymphs (Man) 0.0 K/mm3 Monocytes # (Manual) 1.3 H (0.0-0.8) K/mm3 Eosinophils # (Manual) 0.0 (0.0-0.4) K/mm3 Basophils # (Manual) 0.0 (0.0-0.1) K/mm3 Metamyelocytes # 0.0 K/mm3 Myelocytes # 0.0 K/mm3 Promyelocytes # 0.0 K/mm3 Blast Cells # 0.0 K/mm3 WBC Morphology Not Reportable Hypersegmented Neuts Not Reportable Hyposegmented Neuts Not Reportable Hypogranular Neuts Not Reportable Smudge Cells Not Reportable Toxic Granulation Not Reportable Toxic Vacuolation Not Reportable Dohle Bodies Not Reportable Pelger-Huet Anomaly Not Reportable Gayathri Rods Not Reportable Platelet Estimate Appears normal Clumped Platelets Not Reportable Plt Clumps, EDTA Not Reportable Large Platelets Not Reportable Giant Platelets Not Reportable Platelet Satelliting Not Reportable Plt Morphology Comment Not Reportable RBC Morphology Not Reportable Dimorphic RBCs Not Reportable Polychromasia Not Reportable Hypochromasia Not Reportable Poikilocytosis 1+ Anisocytosis 1+ Microcytosis Not Reportable Macrocytosis Not Reportable Spherocytes Not Reportable Pappenheimer Bodies Not Reportable Sickle Cells Not Reportable Target Cells Not Reportable Tear Drop Cells Not Reportable Ovalocytes Few Helmet Cells Not Reportable Colón-Prompton Bodies Not Reportable [place] Rings Not Reportable Walter Cells Not Reportable Bite Cells Not Reportable Crenated Cell Not Reportable Elliptocytes Not Reportable Acanthocytes (Spur) Not Reportable Rouleaux Not Reportable Hemoglobin C Crystals Not Reportable Schistocytes Not Reportable Malaria parasites Not Reportable Aaron Bodies Not Reportable Hem Pathologist Commnt No PT 12.9 (12.2-14.9) Sec. INR 0.93 (0.87-1.13) APTT 21.0 L (24.2-36.6) Sec. Thrombin Time (15.1-19.6) Sec. Sodium 143 (137-145) mmol/L Potassium 4.0 (3.6-5.0) mmol/L Chloride 97.2 L (98-107) mmol/L Carbon Dioxide 29 (22-30) mmol/L Anion Gap 21 mmol/L BUN 27 H (7-17) mg/dL Creatinine 1.0 (0.7-1.2) mg/dL Estimated GFR 57 ml/min BUN/Creatinine Ratio 27.00 % Glucose 169 H (65-100) mg/dL Calcium 8.9 (8.4-10.2) mg/dL Troponin T < 0.010 (0.00-0.029) ng/mL 07/11/17 Range/Units 20:00 WBC (4.5-11.0) K/mm3 RBC (3.65-5.03) M/mm3 Hgb (10.1-14.3) gm/dl Hct (30.3-42.9) % MCV (79-97) fl MCH (28-32) pg MCHC (30-34) % RDW (13.2-15.2) % Plt Count (140-440) K/mm3 Add Manual Diff Total Counted Seg Neuts % (Manual) (40.0-70.0) % Band Neutrophils % % Lymphocytes % (Manual) (13.4-35.0) % Reactive Lymphs % (Man) % Monocytes % (Manual) (0.0-7.3) % Eosinophils % (Manual) (0.0-4.3) % Basophils % (Manual) (0.0-1.8) % Metamyelocytes % % Myelocytes % % Promyelocytes % % Blast Cells % % Nucleated RBC % Seg Neutrophils # Man (1.8-7.7) K/mm3 Band Neutrophils # K/mm3 Lymphocytes # (Manual) (1.2-5.4) K/mm3 Abs React Lymphs (Man) K/mm3 Monocytes # (Manual) (0.0-0.8) K/mm3 Eosinophils # (Manual) (0.0-0.4) K/mm3 Basophils # (Manual) (0.0-0.1) K/mm3 Metamyelocytes # K/mm3 Myelocytes # K/mm3 Promyelocytes # K/mm3 Blast Cells # K/mm3 WBC Morphology Hypersegmented Neuts Hyposegmented Neuts Hypogranular Neuts Smudge Cells Toxic Granulation Toxic Vacuolation Dohle Bodies Pelger-Huet Anomaly Gayathri Rods Platelet Estimate Clumped Platelets Plt Clumps, EDTA Large Platelets Giant Platelets Platelet Satelliting Plt Morphology Comment RBC Morphology Dimorphic RBCs Polychromasia Hypochromasia Poikilocytosis Anisocytosis Microcytosis Macrocytosis Spherocytes Pappenheimer Bodies Sickle Cells Target Cells Tear Drop Cells Ovalocytes Helmet Cells Colón-Prompton Bodies [place] Rings Walter Cells Bite Cells Crenated Cell Elliptocytes Acanthocytes (Spur) Rouleaux Hemoglobin C Crystals Schistocytes Malaria parasites Aaron Bodies Hem Pathologist Commnt PT (12.2-14.9) Sec. INR (0.87-1.13) APTT (24.2-36.6) Sec. Thrombin Time 16.6 (15.1-19.6) Sec. Sodium (137-145) mmol/L Potassium (3.6-5.0) mmol/L Chloride (98-107) mmol/L Carbon Dioxide (22-30) mmol/L Anion Gap mmol/L BUN (7-17) mg/dL Creatinine (0.7-1.2) mg/dL Estimated GFR ml/min BUN/Creatinine Ratio % Glucose (65-100) mg/dL Calcium (8.4-10.2) mg/dL Troponin T (0.00-0.029) ng/mL Critical Care Time: Yes Critical care time in (mins) excluding proc time.: 36 Critical care attestation.: If time is entered above; I have spent that time in minutes in the direct care of this critically ill patient, excluding procedure time. ED Disposition Clinical Impression: Stroke Disposition: [id number] OP ADMIT IP TO THIS HOSP Is pt being admited?: Yes Does the pt Need Aspirin: Yes (given) Condition: Stable Referrals: CHARLES UMANA MD [Primary Care Provider] - 3-5 Days
--- NOTE | 2017-07-11 20:19 | Cat Scan Report ---
FINAL REPORT PROCEDURE: CT HEAD/BRAIN WO CON TECHNIQUE: Computerized tomography of the head was performed without contrast material. HISTORY: neuro deficits \T\lt; 6hrs or sx present upon awakening COMPARISON: No prior studies are available for comparison. FINDINGS: Skull and scalp: Normal. Paranasal sinuses: Normal. Ventricles and subarachnoid spaces: Normal. Cerebrum: No evidence of hemorrhage, acute infarction or mass . Cerebellum and brainstem: No evidence of hemorrhage, acute infarction or mass. Vasculature: Normal. Comments: None. IMPRESSION: There is no acute intracranial abnormality.
[2017-07-11 20:21] LABS: INR 0.93 (0.87-1.13)
[2017-07-11 20:27] LABS: Anion Gap 21 mmol/L; Blood Urea Nitrogen 27 mg/dL (7-17); Calcium 8.9 mg/dL (8.4-10.2); Carbon Dioxide 29 mmol/L (22-30); Chloride 97.2 mmol/L (98-107); Glucose 169 mg/dL (65-100); Sodium 143 mmol/L (137-145)
[2017-07-11 20:46] LABS: Basophils % (Manual) 0 % (0.0-1.8); Blastocytes % (Manual) 0 %; Eosinophils % (Manual) 0 % (0.0-4.3)
[2017-07-11 20:47] LABS: Anisocytosis 1+; Diff Status Complete; Ovalocytes Few; Poikilocytosis 1+
[2017-07-11] MEDS ORDERED: BABY ASPIRIN PO ONE (21:20)
[2017-07-11] MEDS ORDERED: MILK OF MAGNESIA PO PRN (22:41)
[2017-07-11] MEDS ORDERED: TYLENOL PO PRN (22:41)
[2017-07-11] MEDS ORDERED: SODIUM CHLORIDE FLUSH SYRINGE 10 ML IV PRN (22:41)
[2017-07-11] MEDS ORDERED: ZOFRAN IV PRN (22:41)
[2017-07-11] MEDS ORDERED: DULCOLAX PR PRN (22:41)
--- NOTE | 2017-07-11 22:48 | History and Physical Report ---
History of Present Illness Date of examination: 07/11/17 History of present illness: 60-year-old woman with a history of COPD, A. fib, hypertension, diabetes, anxiety, depression, restless leg syndrome comes to the emergency room today with complaints of acute onset of twisting and numbness of her face, slurred speech and weakness on the left side. Neurology was consulted, her symptoms started to improve, neurologist and recommended against TPA. Also complaining of rectal bleeding, today. She had a colonoscopy 2 weeks ago, she stayed receiving but she is not sure if they were removed Review Of Systems: Constitutional: no weight loss Ears, eyes, nose, mouth and throat: no nasal congestion, no nasal discharge, no sinus pressure, blurry vision, diplopia Neck: No neck pain or rigidity. Cardiovascular: chest pain, orthopnea, palpitations Respiratory: No shortness of breath, cough Gastrointestinal: abdominal pain, hematochezia Genitourinary : no dysuria, frequency , hematuria Musculoskeletal: no muscle ache Integumentary: no rash, no pruritis Neurological: + parathesias, focal weakness Endocrine: no cold or heat intolerance, no polyuria or polydipsia Hematologic/Lymphatic: no easy bruising, no easy bleeding, no gland swelling Allergic/Immunologic: no urticaria, no angioedema. PAST MEDICAL HISTORY:COPD, A. fib, hypertension, diabetes, anxiety, depression, restless leg syndrome PAST SURGICAL HISTORY: Hysterectomy, , tubal ligation, cataract extraction SOCIAL HISTORY: Denies alcohol, tobacco, drugs FAMILY HISTORY: Coronary artery disease, hypertension diabetes Medications and Allergies Allergies Allergy/AdvReac Type Severity Reaction Status Date / Time atenolol Allergy Unknown Verified 04/06/17 07:56 cefuroxime axetil Allergy Hives Verified 04/06/17 07:56 [From Ceftin] duloxetine HCl Allergy Unknown Verified 04/06/17 07:56 [From Cymbalta] gabapentin [From Neurontin] Allergy Rash Verified 04/06/17 07:56 ketoconazole Allergy Shortness Verified 04/06/17 07:56 of Breath levofloxacin [From Levaquin] Allergy Hives Verified 04/06/17 07:56 lorazepam [From Ativan] Allergy Unknown Verified 04/06/17 07:56 rotigotine [From Neupro] Allergy Rash Verified 04/06/17 07:56 umeclidinium bromide Allergy Swelling Verified 04/06/17 07:56 [From Anoro Ellipta] vilanterol trifenatate Allergy Swelling Verified 04/06/17 07:56 [From Anoro Ellipta] albuterol AdvReac Unknown Verified 04/06/17 07:56 rivaroxaban [From Xarelto] AdvReac Bleeding Verified 04/06/17 07:56 Home Medications Medication Instructions Recorded Confirmed Last Taken Type ALPRAZolam [Xanax TAB] 1 mg PO TID #60 tablet 04/05/17 07/11/17 07/11/17 Rx Amiodarone [Cordarone 200 MG TAB] 200 mg PO BID #30 tablet 04/05/17 07/11/1704/21 Rx Furosemide [Lasix TAB] 40 mg PO BID #30 tablet 04/05/17 07/11/17 07/11/17 Rx Potassium Chloride [K-Dur] 1 tab PO QDAY #30 tablet 04/05/17 07/11/17 07/11/17 Rx Spironolactone [Aldactone] 25 mg PO QDAY #30 tablet 04/05/17 07/11/17 07/11/17 Rx Venlafaxine Xr [Effexor XR] 150 mg PO BID #60 capsule 04/05/17 07/11/17 Rx predniSONE [Deltasone] 10 mg PO .TAPER #48 tab 04/05/17 07/11/17 07/11/17 Rx rOPINIRole [Requip] 5 mg PO TID #90 tablet 04/05/17 07/11/17 07/11/17 Rx Aspirin [Aspirin BABY CHEW TAB] 81 mg PO QDAY 07/11/17 07/11/17 07/11/17 History Bupropion HCl [Wellbutrin XL] 300 mg PO QAM 07/11/17 07/11/17 07/11/17 History Diltiazem [Cardizem] 180 mg PO QDAY 07/11/17 07/11/17 07/11/17 History Hydrocortisone 2.5% [Proctosol-Hc] 28.35 gm [place] DAILY 07/11/17 07/11/17 07/11/17 History Levalbuterol HCl [Xopenex] 1.25 mg IH DAILY 07/11/17 07/11/17 07/11/17 History Levalbuterol Hfa 45 Mcg/Puff 2 puff IH Q4H 07/11/17 07/11/17 07/11/17 History [Xopenex Hfa (Nf)] Magnesium Oxide [Magnesium] 400 mg PO DAILY 07/11/17 07/11/17 07/11/17 History Omeprazole Magnesium [PriLOSEC Otc] 20 mg PO QDAY 07/11/17 07/11/17 07/11/17 History glipiZIDE [Glucotrol] 5 mg PO BID 07/11/17 07/11/17 07/11/17 History Exam - Physical Exam Narrative exam: Gen. appearance: Patient lying in bed in no acute distress HEENT: Normocephalic/atraumatic, pupils equal round reactive to light, extra alkaline movement intact, no scleral icterus, no JVD or thyromegaly or nodule, neck is supple, mucous membrane moist, no erythema or exudate Heart: S1-S2, regular rate and rhythm Lungs: Clear to auscultation bilateral breathing comfortable Abdomen: Positive bowel sounds, nontender, nondistended, no organomegaly Extremities: No edema, cyanosis, clubbing Neuro:: Oriented 3 , slurred speech, left upper and lower extremity weakness 3/ 5, Skin: No rash, nodules, warm dry - Constitutional Vitals: Temp Pulse Resp BP Pulse Ox 98.0 F 75 18 138/80 98 07/11/17 20:14 07/11/17 22:45 07/11/17 22:45 07/11/17 22:45 07/11/17 22:45 Results - Labs CBC & Chem 7: 07/11/17 20:00 07/11/17 20:00 Labs: Abnormal lab results 07/11/17 07/11/17 07/11/17 Range/Units 20:00 20:00 20:00 WBC 14.2 H (4.5-11.0) K/mm3 MCV 78 L (79-97) fl MCH 24 L (28-32) pg RDW 22.2 H (13.2-15.2) % Monocytes % (Manual) 9.0 H (0.0-7.3) % Seg Neutrophils # Man 9.1 H (1.8-7.7) K/mm3 Monocytes # (Manual) 1.3 H (0.0-0.8) K/mm3 APTT 21.0 L (24.2-36.6) Sec. Chloride 97.2 L (98-107) mmol/L BUN 27 H (7-17) mg/dL Glucose 169 H (65-100) mg/dL Assessment and Plan Assessment Acute CVA Rectal bleeding COPD A. fib hypertension diabetes anxiety depression restless leg syndrome Plan Admit to medicine Obtain MRI of the head and neck, echo Neurochecks, swallow screen Hold aspirin secondary to rectal bleed, start statin [employer] neurology, physical occupational and speech therapy IV hydralazine for blood pressure control Check serial hemoglobin, consult GI Dvt prophylaxis with SCD
[2017-07-12 00:17] LABS: Hematocrit 35.3 % (30.3-42.9); Hemoglobin 10.8 gm/dl (10.1-14.3)
[2017-07-12 05:37] LABS: Hematocrit 33.6 % (30.3-42.9); Hemoglobin 10.7 gm/dl (10.1-14.3)
--- NOTE | 2017-07-12 07:15 | Admit Criteria Form ---
Admission Criteria Documentation: NEUROLOGY GRG Clinical Indications for Admission to Inpatient Care (Place ' X' for any and all applicable criteria): Hospital admission is needed for appropriate care of the patient because of 1 or more of the following: [ ]I. Encephalitis [ ]II. Severe STATISTICIAN APPLIED infections indicated by 1 or more of the following(1)(2)(3) : [ ]a) Intracranial abscess [ ]b) Spinal abscess or myelitis [ ]c) Tuberculous or other nonbacterial, nonviral STATISTICIAN APPLIED infection(8) [ ]III. Vasculitis and 1 or more of the following(14)(15): []a) Altered mental status that is severe or persistent or other acute neurologic change []b) Psychosis []c) Seizure [ ]IV. Status epilepticus or repetitive seizures not controlled with emergent treatment [A] (7)(8) [ ]V. Altered mental status that is severe or persistent [ ]. Transient alteration in consciousness with high-risk etiology; examples include (12)(13): [ ]a) Cardiovascular source [ ]b) Cataplexy [ ]VII. Cerebral aneurysm requiring ANY ONE of the following(14): [ ]a) IV antihypertensives or vasoactive agents [ ]b) Sedation and analgesia for suspected leak [ ]c) Need for external ventricular drainage and cerebral perfusion pressure monitoring [ ]d) Emergent evaluation to determine need for surgical clipping or endovascular coiling by interventional radiology. If surgery is required ( Also use Craniotomy, Supratentorial, for Surgery of Bleeding Intracranial Aneurysm (for bleeding aneurysm) or Craniotomy, Supratentorial (for nonbleeding aneurysm) as appropriate. [ ]VIII. New-onset severe neurologic symptom requiring inpatient care indicated by ANY ONE of the following: [ ]a) Aphasia(15) [ ]b) Weakness (grade 3 or less) [ ]c) Paralysis (eg, hemiplegia) [ ]d) Spasticity(16) [ ]e) Dystonia [ ]e) Ataxia(17) [ ]f) Amnesia(18) [ ]g) Involuntary movements(19) [ ]h) Vertigo [ ] Visual loss [ ]i) Other severe neurologic finding (eg, papilledema, mass effect on imaging, myoclonus not treatable at alternative level of care (eg, observation care) [ ]IX. Guillain-Wood syndrome(20) [ ]X. Myasthenia gravis crisis or inpatient monitoring need as indicated by 1 or more of the following(21): [ ]a) Intensive treatment (eg, course of plasmapheresis) with inadequate outpatient situation to monitor patients status [ ]b) Inadequate airway protection [ ]c) Respiratory insufficiency requiring intubation or inpatient. monitoring [ ]d) Progressive dysphagia with failure to thrive [ ]XI. Multiple sclerosis or other acute demyelinating disease requiring inpatient care as indicated by 1 or more of the following (22)(23): [ ]a) Acute severe deterioration requiring inpatient treatment (eg, IV steroids, plasmapheresis, close observation) [ ]b) Acute complication requiring inpatient care (eg, sepsis, severe decubitus, aspiration) [ ]XII.Parkinson disease requiring inpatient care (Also use Optimal Recovery Care Criteria or General Recovery Criteria as appropriate) indicated by 1 or more of the following(25): [ ]a) Infection (eg, aspiration pneumonia) not treatable at alternative level of care [ ]b Dehydration that is severe or persistent [ ]c) Life-threatening agitation or psychotic behavior not treatable on emergency, observation care, or alternative level (eg, residential) basis [ ]d) Severe medication withdrawal effects (eg, freezing, neuroleptic malignant syndrome) not responsive to emergency and observation care treatment ( as appropriate) [ ]e) Other severe manifestation not treatable at alternative level of care [ ]XII. Amyotrophic lateral sclerosis with inpatient care needs as indicated by ANY ONE of the following(26): [ ]a) Acute complications (eg, aspiration pneumonia, sepsis ) requiring inpatient care ( see other optimal Recovery Guideline as appropriate) [ ]b) Dehydration that is severe persistent AND artificial support desired [ ]c) Inadequate airway protection AND artificial support desired [ ]d) Severe ventilatory insufficiency AND artificial support desired [ ]XIII. Myasthenia gravis crisis or inpatient monitoring need as indicated by 1 or more of the following(21): [] a) Inadequate airway protection []b) Respiratory insufficiency requiring intubation or inpatient monitoring []c) Progressive dysphagia with failure to thrive []d) Intensive treatment (e.g., course of plasmapheresis) with inadequate outpatient situation to monitor patients status [ ]XIV. Multiple sclerosis or other acute demyelinating disease requiring inpatient care indicated by 1 or more of the following[C](36)(43)(44)(45)(46): []a) Acute severe deterioration requiring inpatient treatment (eg, IV steroids, plasmapheresis, close observation) []b) Acute complication requiring inpatient care (eg, sepsis, severe decubitus, aspiration) [ ]XV. Intracranial hypertension (e.g., pseudotumor cerebri) requiring inpatient care (e.g., acute visual loss, inadequate oral intake) (47)(48)(49) [ ]XVI. Parkinson disease requiring inpatient care (Also use Optimal Recovery Care Criteria or General Recovery Criteria as appropriate) indicated by 1 or more of the following(25): [] a) Infection (e.g., aspiration pneumonia) not treatable at alternative level of care []b) Volume depletion not responsive to emergency and observation care treatment (as appropriate) []c) Life-threatening agitation or psychotic behavior not treatable on emergency, observation care, or alternative level (e.g., residential) basis []d) Severe medication withdrawal effects (e.g., freezing, neuroleptic malignant syndrome) not responsive to emergency and observation care treatment (as appropriate) []e) Other severe manifestation not treatable at alternative level of care [ ]XVII. Amyotrophic lateral sclerosis with inpatient care needs as indicated by1 or more of the following(42): []a) Acute complications (eg, aspiration pneumonia, sepsis) requiring inpatient care (see other Optimal Recovery Guideline or General Recovery Guideline as appropriate) []b) Dehydration that is severe or persistent AND artificial support desired []c) Inadequate airway protection AND artificial support desired []d) Severe ventilatory insufficiency AND artificial support desired [ ]XVIII. Severe myopathy, neuropathy, or other neuromuscular disease indicated by 1 or more of the following(42)(52)(53)(54): []a ) New-onset severe diffuse weakness (eg, strength 3/5 or less) []b) Severe dysphagia []c) Dyspnea at rest or with minimal exertion (new) []d) Inadequate airway protection []e) Inadequate ventilation indicated by 1 or more of the following : i) Partial pressure of carbon dioxide greater than 44 mm Hg ( 5.9 kPa) (new) ii) Reduced peak expiratory flow rate (new) iii) Vital capacity less than 50% of predicted (less than 15 mL/kg) iv) Peak inspiratory force less negative than -30 cm H2O (- 2942 Pa) [ ]XVII.Complications of congenital or degenerative disease (eg, infection, seizures, dehydration, injury) not responsive to emergency and observation care treatment (as appropriate ) [C](16)(29)(30) [ ]XVIII.Suspected or confirmed nerve or muscle toxic injury, including ANY ONE of the following: [ ]a) Rhabdomyolysis(31) i) Acute renal failure ii) Dehydration that is severe or persistent iii) Altered mental status that is severe or persistent iv) Electrolyte abnormality that remains after emergency or observation level care ( as appropriate) [ ]b) Botulism(32) [ ]c) Other severe toxin-induced sign or symptom [ ]XIX. Neurologic trauma requiring inpatient treatment (medical) indicated by ANY ONE of the following(33)(34): [ ]a) Vital signs or neurologic signs more frequently than every 4 hours [ ]b) Hyperosmolar therapy [ ]c) Respiratory monitoring [ ]d) Intracranial pressure monitoring and treatment [ ]e) Stabilization and immobilization device placement (eg, braces, body jacket) [ ]f) Intubation & mechanical ventilation for airway protection or therapeutic hyperventilation [ ]g) Other treatment or monitoring needed that requires inpatient level of care [ ]XX.Complications of neurologic devices (eg, ventricular shunt, neurostimulator) requiring 1 or more of the following(35)(36): [ ]a) IV antibiotics with monitoring while awaiting culture results [ ]b) Monitoring for hydrocephalus [X ]XXI. Neurology condition symptom, or finding for which emergency and observation care have failed or are not considered appropriate. See General Criteria: Observation Care ISC, General Admission Criteria GRG, or Pediatric General Admission Criteria GRG guideline as appropriate. The original [facility] content created by [facility] has been revised. The portions of the content which have been revised are identified through the use of italic text or in bold, and [facility] has neither reviewed nor approved the modified material. All other unmodified content is copyright [facility] Please see references footnoted in the original [facility] edition 2016 Admission Criteria Met: Yes
--- NOTE | 2017-07-12 08:17 | XRay Report ---
AP CHEST : 07/11/17 21:37 CLINICAL: Chest pain. COMPARISON:05/09/17 FINDINGS: Mild cardiomegaly and central vascular congestion. Mild left basal subsegmental atelectasis versus scar. The lungs are otherwise clear. The bones and soft tissues are unremarkable. IMPRESSION: Mild cardiomegaly and pulmonary venous hypertension. No pulmonary edema.
[2017-07-12] MEDS ORDERED: ATIVAN IV ONE (10:38)
--- NOTE | 2017-07-12 11:24 | Event Note ---
Date: 07/12/17 GI consulted for rectal bleeding and attempted to see. Pt was off of the floor in MRI. HGB is stable per chart review and ER nurse reports no active signs of bleeding. Full consult to follow when pt is available.
--- NOTE | 2017-07-12 11:48 | Magnetic Resonance Report ---
MRI BRAIN WITHOUT CONTRAST INDICATION: Stroke. COMPARISON: Head CT from last night. FINDINGS: Noncontrast multiplanar and multisequence MRI of the brain demonstrates normal ventricles and sulci without acute infarct, hemorrhage, mass effect or midline shift. Mild periventricular and few white matter FLAIR and T2 weighted hyperintensities. Motion artifact partly limits exam. No abnormal extra-axial masses or fluid collections. Normal major intracranial vascular flow voids. Normal posterior fossa structures with symmetric seventh and eighth nerve complexes. Bilateral cataract surgery. Slight right ethmoid sinusitis. Clear remainder imaged paranasal sinuses and mastoid air cells. Cerebellar tonsils appear to extend for approximately 3 mm below the foramen magnum in the midline, not strictly meet imaging criteria for Chiari 1 malformation. Grossly normal remainder midline structures. CONCLUSION: No acute intracranial MRI abnormality with age-appropriate atrophy, mild microvascular changes and few other incidental findings, as described. Thank you for the opportunity to participate in this patient's care.
--- NOTE | 2017-07-12 11:50 | Magnetic Resonance Report ---
MRA HEAD WITHOUT CONTRAST INDICATION: Stroke. COMPARISON: None similar. FINDINGS: MRA of the head attempted without intravenous contrast and limited due to motion, though demonstrates no evidence of flow-limiting stenosis, occlusion or vascular malformation. Please note that detection of aneurysms less than 5 mm is limited on this exam. Left vertebral artery dominant. CONCLUSION: Limited, though grossly normal study of the [place]. Thank you for the opportunity to participate in this patient's care.
[2017-07-12 13:56] LABS: Hematocrit 35.8 % (30.3-42.9); Hemoglobin 10.8 gm/dl (10.1-14.3)
[2017-07-12 14:01] LABS: ISTAT Base Excess 9; ISTAT DEVICE 0; ISTAT HCO3 32.9; ISTAT PCO2 45.3 (35-45); ISTAT PH 7.469 (7.35-7.45); ISTAT PO2 44 (80-105); ISTAT SO2 82; ISTAT TCO2 34
--- NOTE | 2017-07-12 14:18 | Progress Note ---
Assessment and Plan Assessment and plan: 60-year-old woman with a history of COPD, A. fib, hypertension, diabetes, anxiety, depression, restless leg syndrome comes to the emergency room today with complaints of acute onset of twisting and numbness of her face, slurred speech and weakness on the left side. Neurology was consulted, her symptoms started to improve, neurologist and recommended against TPA. Also complaining of rectal bleeding, today. She had a colonoscopy 2 weeks ago, she stayed receiving but she is not sure if they were removed TIA with left facial droop and slurred speech and markedly lethargic. * Resolved. MRI/MRA Negative. Neurology consult pending Rectal bleeding * GI consult. H/H stable, Avoid antiplatelet. Patient reports recent colonoscopy. Request records COPD/ALANA * Continue nebs, qhs cpap A. fib * continue rate control. * No ac due to recent GI bleed Acute on chronic Hypoxic Respiratory failure * Continue oxygen. Patient on Home o2 hypertension * Continue adequate control Diabetes * Continue insulin therapy Anxiety * Likely exacerbated, Due to TIA, continue current medications depression * Continue home meds restless leg syndrome * stable. Continue reprionole DVT/GI prophy pLAN DISCUSSED WITH PATIENT AND FAMILY Nurse notified me patient now awake, ambulating unassisted. History Interval history: Patient seen and examined this morning in no acute distress very lethargic. Hospitalist Physical - Physical exam Narrative exam: VITAL SIGNS: Reviewed. GENERAL: The patient appeared well nourished and normally developed. morbidly obese. Vital signs as documented. HEAD: No signs of head trauma. EYES: Pupils are equal. Extraocular motions intact. EARS: Hearing grossly intact. MOUTH: Oropharynx is normal. NECK: No adenopathy, no JVD. CHEST: Chest with clear breath sounds bilaterally. No wheezes, rales, or rhonchi. CARDIAC: Regular rate and rhythm. S1 and S2, without murmurs, gallops, or rubs. VASCULAR: No Edema. Peripheral pulses normal and equal in all extremities. ABDOMEN: Soft, without detectable tenderness. No sign of distention. No rebound or guarding, and no masses palpated. Bowel Sounds normal. MUSCULOSKELETAL: Good range of motion of all major joints. Extremities without clubbing, cyanosis or edema. NEUROLOGIC EXAM: Awake but lethargic and oriented x 3. poor response to following commands, 4/5 motor strenghth left upper ext. Speech normal. Follows commands. PSYCHIATRIC: Mood normal. SKIN: No rash or lesions. - Constitutional Vitals: Temp Pulse Resp BP Pulse Ox 97.4 F L 74 22 126/70 97 07/12/17 13:28 07/12/17 13:28 07/12/17 13:28 07/12/17 13:28 07/12/17 14:03 Results - Labs CBC & Chem 7: 07/12/17 13:12 07/11/17 20:00 Labs: Laboratory Last Values WBC 14.2 K/mm3 (4.5-11.0) H 07/11/17 20:00 RBC 4.74 M/mm3 (3.65-5.03) 07/11/17 20:00 Hgb 10.8 gm/dl (10.1-14.3) 07/12/17 13:12 Hct 35.8 % (30.3-42.9) 07/12/17 13:12 MCV 78 fl (79-97) L 07/11/17 20:00 MCH 24 pg (28-32) L 07/11/17 20:00 MCHC 31 % (30-34) 07/11/17 20:00 RDW 22.2 % (13.2-15.2) H 07/11/17 20:00 Plt Count 316 K/mm3 (140-440) 07/11/17 20:00 Add Manual Diff Complete 07/11/17 20:00 Total Counted 100 07/11/17 20:00 Seg Neuts % (Manual) 64.0 % (40.0-70.0) 07/11/17 20:00 Band Neutrophils % 0 % 07/11/17 20:00 Lymphocytes % (Manual) 27.0 % (13.4-35.0) 07/11/17 20:00 Reactive Lymphs % (Man) 0 % 07/11/17 20:00 Monocytes % (Manual) 9.0 % (0.0-7.3) H 07/11/17 20:00 Eosinophils % (Manual) 0 % (0.0-4.3) 07/11/17 20:00 Basophils % (Manual) 0 % (0.0-1.8) 07/11/17 20:00 Metamyelocytes % 0 % 07/11/17 20:00 Myelocytes % 0 % 07/11/17 20:00 Promyelocytes % 0 % 07/11/17 20:00 Blast Cells % 0 % 07/11/17 20:00 Nucleated RBC % Not Reportable 07/11/17 20:00 Seg Neutrophils # Man 9.1 K/mm3 (1.8-7.7) H 07/11/17 20:00 Band Neutrophils # 0.0 K/mm3 07/11/17 20:00 Lymphocytes # (Manual) 3.8 K/mm3 (1.2-5.4) 07/11/17 20:00 Abs React Lymphs (Man) 0.0 K/mm3 07/11/17 20:00 Monocytes # (Manual) 1.3 K/mm3 (0.0-0.8) H 07/11/17 20:00 Eosinophils # (Manual) 0.0 K/mm3 (0.0-0.4) 07/11/17 20:00 Basophils # (Manual) 0.0 K/mm3 (0.0-0.1) 07/11/17 20:00 Metamyelocytes # 0.0 K/mm3 07/11/17 20:00 Myelocytes # 0.0 K/mm3 07/11/17 20:00 Promyelocytes # 0.0 K/mm3 07/11/17 20:00 Blast Cells # 0.0 K/mm3 07/11/17 20:00 WBC Morphology Not Reportable 07/11/17 20:00 Hypersegmented Neuts Not Reportable 07/11/17 20:00 Hyposegmented Neuts Not Reportable 07/11/17 20:00 Hypogranular Neuts Not Reportable 07/11/17 20:00 Smudge Cells Not Reportable 07/11/17 20:00 Toxic Granulation Not Reportable 07/11/17 20:00 Toxic Vacuolation Not Reportable 07/11/17 20:00 Dohle Bodies Not Reportable 07/11/17 20:00 Pelger-Huet Anomaly Not Reportable 07/11/17 20:00 Gayathri Rods Not Reportable 07/11/17 20:00 Platelet Estimate Appears normal 07/11/17 20:00 Clumped Platelets Not Reportable 07/11/17 20:00 Plt Clumps, EDTA Not Reportable 07/11/17 20:00 Large Platelets Not Reportable 07/11/17 20:00 Giant Platelets Not Reportable 07/11/17 20:00 Platelet Satelliting Not Reportable 07/11/17 20:00 Plt Morphology Comment Not Reportable 07/11/17 20:00 RBC Morphology Not Reportable 07/11/17 20:00 Dimorphic RBCs Not Reportable 07/11/17 20:00 Polychromasia Not Reportable 07/11/17 20:00 Hypochromasia Not Reportable 07/11/17 20:00 Poikilocytosis 1+ 07/11/17 20:00 Anisocytosis 1+ 07/11/17 20:00 Microcytosis Not Reportable 07/11/17 20:00 Macrocytosis Not Reportable 07/11/17 20:00 Spherocytes Not Reportable 07/11/17 20:00 Pappenheimer Bodies Not Reportable 07/11/17 20:00 Sickle Cells Not Reportable 07/11/17 20:00 Target Cells Not Reportable 07/11/17 20:00 Tear Drop Cells Not Reportable 07/11/17 20:00 Ovalocytes Few 07/11/17 20:00 Helmet Cells Not Reportable 07/11/17 20:00 Colón-Aneta Bodies Not Reportable 07/11/17 20:00 [place] Rings Not Reportable 07/11/17 20:00 Hawi Cells Not Reportable 07/11/17 20:00 Bite Cells Not Reportable 07/11/17 20:00 Crenated Cell Not Reportable 07/11/17 20:00 Elliptocytes Not Reportable 07/11/17 20:00 Acanthocytes (Spur) Not Reportable 07/11/17 20:00 Rouleaux Not Reportable 07/11/17 20:00 Hemoglobin C Crystals Not Reportable 07/11/17 20:00 Schistocytes Not Reportable 07/11/17 20:00 Malaria parasites Not Reportable 07/11/17 20:00 Aaron Bodies Not Reportable 07/11/17 20:00 Hem Pathologist Commnt No 07/11/17 20:00 PT 12.9 Sec. (12.2-14.9) 07/11/17 20:00 INR 0.93 (0.87-1.13) 07/11/17 20:00 APTT 21.0 Sec. (24.2-36.6) L 07/11/17 20:00 Thrombin Time 16.6 Sec. (15.1-19.6) 07/11/17 20:00 POC ABG pH 7.469 (7.35-7.45) H 07/12/17 13:59 POC ABG pCO2 45.3 (35-45) H 07/12/17 13:59 POC ABG pO2 44 (80-105) L 07/12/17 13:59 POC ABG HCO3 32.9 07/12/17 13:59 POC ABG Total CO2 34 07/12/17 13:59 POC ABG O2 Sat 82 07/12/17 13:59 POC ABG Base Excess 9 07/12/17 13:59 FiO2 21 % 07/12/17 13:59 Sodium 143 mmol/L (137-145) 07/11/17 20:00 Potassium 4.0 mmol/L (3.6-5.0) 07/11/17 20:00 Chloride 97.2 mmol/L (98-107) L 07/11/17 20:00 Carbon Dioxide 29 mmol/L (22-30) 07/11/17 20:00 Anion Gap 21 mmol/L 07/11/17 20:00 BUN 27 mg/dL (7-17) H 07/11/17 20:00 Creatinine 1.0 mg/dL (0.7-1.2) 07/11/17 20:00 Estimated GFR 57 ml/min 07/11/17 20:00 BUN/Creatinine Ratio 27.00 % 07/11/17 20:00 Glucose 169 mg/dL (65-100) H 07/11/17 20:00 Calcium 8.9 mg/dL (8.4-10.2) 07/11/17 20:00 Troponin T < 0.010 ng/mL (0.00-0.029) 07/11/17 20:00 Triglycerides 226 mg/dL (2-149) H 07/12/17 05:02 Cholesterol 145 mg/dL (50-199) 07/12/17 05:02 LDL Cholesterol Direct 14 mg/dL (50-130) L 07/12/17 05:02 HDL Cholesterol 86 mg/dL (40-59) H 07/12/17 05:02 Cholesterol/HDL Ratio 1.68 % 07/12/17 05:02 - Imaging and Cardiology MRI - head: image reviewed (no cva noted)
[2017-07-12] MEDS ORDERED: LEVALBUTEROL IH SCH (14:30)
[2017-07-12] MEDS ORDERED: DELTASONE PO SCH (15:00)
[2017-07-12] MEDS: XOPENEX IH SCH ×2 (15:16→23:44)
[2017-07-12] MEDS: DELTASONE PO SCH (17:22)
[2017-07-12] MEDS: LASIX PO SCH (17:22)
[2017-07-12] MEDS: REQUIP PO SCH (20:58)
[2017-07-12] MEDS: CORDARONE PO SCH (21:02)
[2017-07-12] MEDS: XANAX PO SCH (21:02)
[2017-07-12] MEDS: PERCOCET 5/325 PO PRN (21:03)
[2017-07-12] MEDS ORDERED: ZOCOR PO SCH (22:00)
[2017-07-12] MEDS: EFFEXOR XR PO SCH (22:23)
[2017-07-13] MEDS: LASIX PO SCH (05:49)
[2017-07-13] MEDS: PERCOCET 5/325 PO PRN (05:49)
[2017-07-13 06:25] LABS: Anion Gap 21 mmol/L; BUN/Creatinine Ratio 21.25; Blood Urea Nitrogen 17 mg/dL (7-17); Calcium 9.3 mg/dL (8.4-10.2); Carbon Dioxide 29 mmol/L (22-30); Chloride 94.8 mmol/L (98-107); Glucose 209 mg/dL (65-100); Potassium 4.3 mmol/L (3.6-5.0); Sodium 140 mmol/L (137-145)
[2017-07-13 06:26] LABS: Hemoglobin 11.9 gm/dl (10.1-14.3); Mean Corpuscular HGB Conc 31 % (30-34); Mean Corpuscular Volume 78 fl (79-97); Platelet Count 265 K/mm3 (140-440); Red Blood Count 4.87 M/mm3 (3.65-5.03); White Blood Count 9.3 K/mm3 (4.5-11.0)
[2017-07-13 06:43] LABS: Mean Corpuscular Hemoglobin 25 pg (28-32); Red Cell Distribution Width 21.6 % (13.2-15.2)
--- NOTE | 2017-07-13 09:38 | Gastroenterology Consultation ---
History of Present Illness - Reason for Consult Consult date: 07/12/17 rectal bleeding Requesting physician: NORBERTO RODRIGUEZ - History of Present Illness Patient is a 60 y/o female with a PMH of COPD, A-fib, HTN, DM, anxiety, depression, and restless leg syndrome who presented to the ER with c/o acute onset of twisting and numbness of her face, slurred speech, and weakness on the left side. She also c/o rectal bleeding. MRI/MRA was negative and symptoms have now resolved. This morning pt was sitting up in bed, finishing her breakfast. No acute distress noted. Reports rectal bleeding of bright red blood with BMs 3 days ago. Denies any episodes of rectal bleeding since admission. Denies fever, wt loss, CP, SOB, dizziness, abd pain, N/V, hematemesis, melena, diarrhea, or constipation. Her last colonoscopy was on 06/07/[address] Veronica at [facility] that revealed 2 transverse polyps, diverticulosis, and small internal hemorrhoids. Past History Past Medical History: arrhythmia (A-fib), COPD, diabetes, hypertension, other ( anxiety, depression, restless leg syndrome) Past Surgical History: , Other (tubal ligation, cataract extraction) Social history: denies: smoking, alcohol abuse Family history: CAD, diabetes, hypertension Medications and Allergies Allergies Allergy/AdvReac Type Severity Reaction Status Date / Time atenolol Allergy Unknown Verified 04/06/17 07:56 cefuroxime axetil Allergy Hives Verified 04/06/17 07:56 [From Ceftin] duloxetine HCl Allergy Unknown Verified 04/06/17 07:56 [From Cymbalta] gabapentin [From Neurontin] Allergy Rash Verified 04/06/17 07:56 ketoconazole Allergy Shortness Verified 04/06/17 07:56 of Breath levofloxacin [From Levaquin] Allergy Hives Verified 04/06/17 07:56 lorazepam [From Ativan] Allergy Unknown Verified 04/06/17 07:56 rotigotine [From Neupro] Allergy Rash Verified 04/06/17 07:56 umeclidinium bromide Allergy Swelling Verified 04/06/17 07:56 [From Anoro Ellipta] vilanterol trifenatate Allergy Swelling Verified 04/06/17 07:56 [From Anoro Ellipta] albuterol AdvReac Unknown Verified 04/06/17 07:56 rivaroxaban [From Xarelto] AdvReac Bleeding Verified 04/06/17 07:56 Home Medications Medication Instructions Recorded Confirmed Last Taken Type ALPRAZolam [Xanax TAB] 1 mg PO TID #60 tablet 04/05/17 07/11/17 07/11/17 Rx Amiodarone [Cordarone 200 MG TAB] 200 mg PO BID #30 tablet 04/05/17 07/11/1704/21 Rx Furosemide [Lasix TAB] 40 mg PO BID #30 tablet 04/05/17 07/11/17 07/11/17 Rx Potassium Chloride [K-Dur] 1 tab PO QDAY #30 tablet 04/05/17 07/11/17 07/11/17 Rx Spironolactone [Aldactone] 25 mg PO QDAY #30 tablet 04/05/17 07/11/17 07/11/17 Rx Venlafaxine Xr [Effexor XR] 150 mg PO BID #60 capsule 04/05/17 07/11/17 Rx predniSONE [Deltasone] 10 mg PO .TAPER #48 tab 04/05/17 07/11/17 07/11/17 Rx rOPINIRole [Requip] 5 mg PO TID #90 tablet 04/05/17 07/11/17 07/11/17 Rx Aspirin [Aspirin BABY CHEW TAB] 81 mg PO QDAY 07/11/17 07/11/17 07/11/17 History Bupropion HCl [Wellbutrin XL] 300 mg PO QAM 07/11/17 07/11/17 07/11/17 History Diltiazem [Cardizem] 180 mg PO QDAY 07/11/17 07/11/17 07/11/17 History Hydrocortisone 2.5% [Proctosol-Hc] 28.35 gm SD DAILY 07/11/17 07/11/17 07/11/17 History Levalbuterol HCl [Xopenex] 1.25 mg IH DAILY 07/11/17 07/11/17 07/11/17 History Levalbuterol Hfa 45 Mcg/Puff 2 puff IH Q4H 07/11/17 07/11/17 07/11/17 History [Xopenex Hfa (Nf)] Magnesium Oxide [Magnesium] 400 mg PO DAILY 07/11/17 07/11/17 07/11/17 History Omeprazole Magnesium [PriLOSEC Otc] 20 mg PO QDAY 07/11/17 07/11/17 07/11/17 History glipiZIDE [Glucotrol] 5 mg PO BID 07/11/17 07/11/17 07/11/17 History Active Meds: Active Medications Acetaminophen (Tylenol) 650 mg PO Q4H PRN PRN Reason: Pain, Mild (1-3) Alprazolam (Xanax) 1 mg PO TID [facility] Last Admin: 07/12/17 21:02 Dose: 1 mg Amiodarone HCl (Cordarone) 200 mg PO BID [facility] Last Admin: 07/12/17 21:02 Dose: 200 mg Bisacodyl (Dulcolax) 10 mg SD QDAY PRN PRN Reason: Constipation Diltiazem HCl (Cardizem Cd) 180 mg PO QDAY [facility] Furosemide (Lasix) 40 mg PO 0600,1800 [facility] Last Admin: 07/13/17 05:49 Dose: 40 mg Hydrocortisone Acetate (Proctosol-Hc) 1 applic SD DAILY [facility] Levalbuterol HCl (Xopenex) 0.63 mg IH Q8HRT [facility] Last Admin: 07/12/17 23:44 Dose: 0.63 mg Magnesium Hydroxide (Milk Of Magnesia) 30 ml PO Q4H PRN PRN Reason: Constipation Ondansetron HCl (Zofran) 4 mg IV Q8H PRN PRN Reason: N/V unrelieved by Reglan Oxycodone/Acetaminophen (Percocet 5/325) 1 tab PO Q6H PRN PRN Reason: Pain, Moderate (4-6) Last Admin: 07/13/17 05:49 Dose: 1 tab Prednisone (Deltasone) 40 mg PO QDAY [facility] Last Admin: 07/12/17 17:22 Dose: 40 mg Ropinirole HCl (Requip) 5 mg PO TID [facility] Last Admin: 07/12/17 20:58 Dose: 5 mg Simvastatin (Zocor) 20 mg PO QHS [facility] Last Admin: 07/12/17 21:04 Dose: 20 mg Sodium Chloride (Sodium Chloride Flush Syringe 10 Ml) 10 ml IV PRN PRN PRN Reason: LINE FLUSH Spironolactone (Aldactone) 25 mg PO QDAY [facility] Venlafaxine HCl (Effexor Xr) 150 mg PO BID [facility] Last Admin: 07/12/17 22:23 Dose: 150 mg Review of Systems - Review of Systems All systems: negative Gastrointestinal: hematochezia Exam - Constitutional Vital Signs: Temp Pulse Resp BP Pulse Ox 97.5 F L 73 18 154/86 98 07/13/17 04:32 07/13/17 04:32 07/13/17 04:32 07/13/17 04:32 07/13/17 04:32 General appearance: no acute distress, well-nourished, obese - EENT Eyes: PERRL, EOM intact ENT: hearing intact - Respiratory Respiratory: bilateral: CTA (anterior) - Cardiovascular Rhythm: regular Heart Sounds: Present: S1 & S2 Extremities: No edema - Gastrointestinal General gastrointestinal: Present: soft, non-tender, non-distended, normal bowel sounds, other (obese) - Integumentary Integumentary: Present: warm, dry - Neurologic Neurological: alert and oriented x3 - Labs CBC & Chem 7: 07/13/17 05:05 07/13/17 05:05 Lab Results: Laboratory Results - last 24 hr 07/12/17 07/12/17 07/12/17 13:12 13:59 16:31 WBC RBC Hgb 10.8 Hct 35.8 MCV MCH MCHC RDW Plt Count POC ABG pH 7.469 H POC ABG pCO2 45.3 H POC ABG pO2 44 L POC ABG HCO3 32.9 POC ABG Total CO2 34 POC ABG O2 Sat 82 POC ABG Base Excess 9 FiO2 21 Sodium Potassium Chloride Carbon Dioxide Anion Gap BUN Creatinine Estimated GFR BUN/Creatinine Ratio Glucose POC Glucose 113 H Calcium 07/12/17 07/13/17 07/13/17 22:13 05:05 05:05 WBC 9.3 RBC 4.87 Hgb 11.9 Hct 38.0 MCV 78 L MCH 25 L MCHC 31 RDW 21.6 H Plt Count 265 POC ABG pH POC ABG pCO2 POC ABG pO2 POC ABG HCO3 POC ABG Total CO2 POC ABG O2 Sat POC ABG Base Excess FiO2 Sodium 140 Potassium 4.3 Chloride 94.8 L Carbon Dioxide 29 Anion Gap 21 BUN 17 Creatinine 0.8 Estimated GFR > 60 BUN/Creatinine Ratio 21.25 Glucose 209 H POC Glucose 197 H Calcium 9.3 07/13/17 05:35 WBC RBC Hgb Hct MCV MCH MCHC RDW Plt Count POC ABG pH POC ABG pCO2 POC ABG pO2 POC ABG HCO3 POC ABG Total CO2 POC ABG O2 Sat POC ABG Base Excess FiO2 Sodium Potassium Chloride Carbon Dioxide Anion Gap BUN Creatinine Estimated GFR BUN/Creatinine Ratio Glucose POC Glucose 207 H Calcium Assessment and Plan 1.hematochezia -HGB 11.9-stable -continue to monitor H/H and transfuse as needed -no active signs of bleeding overnight or this am -last BM with bright red blood was 3 days ago -last colonoscopy on 06/07/17 revealed polyps, diverticulosis, and internal hemorrhoids -etiology most likely due to hemorrhoids, less likely due to diverticular bleed -no recommendations at this time for a colonoscopy unless overt bleeding develops -pt is scheduled for a f/u appt next week in clinic with Dr. Veronica with [facility] -pt is okay to be d/c per GI standpoint with f/u appt in the clinic next week with Dr. Veronica -will sign off, please re-consult if needed
[2017-07-13] MEDS ORDERED: CARDIZEM PO SCH (10:00)
[2017-07-13] MEDS ORDERED: PROCTOSOL-HC PR SCH (10:00)
[2017-07-13] MEDS ORDERED: ALDACTONE PO SCH (10:00)
[2017-07-13] MEDS ORDERED: LEVALBUTEROL HCL 1.25 MG IH SCH (10:00)
[2017-07-13] MEDS ORDERED: CARDIZEM CD PO SCH (10:00)
[2017-07-13] MEDS: XOPENEX IH SCH (10:10)
--- NOTE | 2017-07-13 10:17 | Discharge Summary ---
Providers - Providers Date of Admission: 07/11/17 22:41 Attending physician: MIGUEL JOLLY MD 07/12/17 15:46 Speech Therapy Evaluation and Treat [CONS] Routine Reason For Exam: slurred speech Primary care physician: CHARLES UMANA Hospitalization Reason for admission: tia Condition: Stable Hospital course: 60-year-old woman with a history of COPD, A. fib, hypertension, diabetes, anxiety, depression, restless leg syndrome comes to the emergency room today with complaints of acute onset of twisting and numbness of her face, slurred speech and weakness on the left side. Neurology was consulted, her symptoms started to improve, neurologist and recommended against TPA. Also complaining of rectal bleeding, today. She had a colonoscopy 2 weeks ago, she stayed receiving but she is not sure if they were removed TIA with left facial droop and slurred speech and markedly lethargic. * Resolved. * Per Neurologist Likely acute right hemispheric's small infarct which could be a lacunar infarct in the right basal ganglia not quite clearly demonstrated on the MRI studies. Continue ASA and statin. SIRS:" * Reactive and improved Rectal bleeding * GI consult. H/H stable, Avoid antiplatelet. Patient reports recent colonoscopy. Request records COPD/ALANA * Continued nebs, qhs cpap * Recommended patient follow with PCP and pulmonary to Reassess ALANA due to increased daytime sleepiness and fatique. A. fib * continue rate control. * No ac due to recent GI bleed Acute on chronic Hypoxic Respiratory failure * Continue oxygen. Patient on Home o2 Hypertension * Continue adequate control Diabetes * Continue insulin therapy Anxiety * Likely exacerbated, Due to TIA, continue current medications Depression * Continue home meds restless leg syndrome/Mild periperal diabetic Polyneuropathy * stable. Continue reprionole Morbid obesity * Weightloss Recommended-15 MINS OF COUNSELLING PROVIDED WITH RESOURCES DISCUSSED Disposition: [id number] HOME UNDER HOME [facility] Time spent for discharge: 35 mins Core Measure Documentation - Palliative Care Palliative Care/ Comfort Measures: Not Applicable - Core Measures Any of the following diagnoses?: none - VTE Discharge Requirements Deep Vein Thrombosis/Pulmonary Embolism Present on Admission: No Exam - Physical Exam Narrative exam: VITAL SIGNS: Reviewed. GENERAL: The patient appeared well nourished and normally developed. sitting up at bedside, ambulated around the room. morbidly obese. Vital signs as documented. HEAD: No signs of head trauma. EYES: Pupils are equal. Extraocular motions intact. EARS: Hearing grossly intact. MOUTH: Oropharynx is normal. NECK: No adenopathy, no JVD. CHEST: Chest with clear breath sounds bilaterally. No wheezes, rales, or rhonchi. CARDIAC: Regular rate and rhythm. S1 and S2, without murmurs, gallops, or rubs. VASCULAR: No Edema. Peripheral pulses normal and equal in all extremities. ABDOMEN: Soft, without detectable tenderness. No sign of distention. No rebound or guarding, and no masses palpated. Bowel Sounds normal. MUSCULOSKELETAL: Good range of motion of all major joints. Extremities without clubbing, cyanosis or edema. NEUROLOGIC EXAM: Awake and oriented x 3. following commands, 4/5 motor strenghth left upper ext. Speech normal. Follows commands. PSYCHIATRIC: Mood normal. SKIN: No rash or lesions. - Constitutional Vitals: Temp Pulse Resp BP Pulse Ox 97.5 F L 73 18 154/86 99 07/13/17 04:32 07/13/17 04:32 07/13/17 04:32 07/13/17 04:32 07/13/17 10:00 Plan Activity: advance as tolerated, fall precautions Diet: low fat, low salt, diabetic Special Instructions: record daily weights, record daily BP diary, record blood sugar diary, physical therapy Follow up with: CHARLES UMANA MD [Primary Care Provider] - 3-5 Days CHRISTIANA KIRK MD [Staff Physician] - 7 Days Prescriptions: AtorvaSTATin [Lipitor] 40 mg PO QHS #30 tab
[2017-07-13] MEDS: EFFEXOR XR PO SCH (10:23)
[2017-07-13] MEDS: XANAX PO SCH (10:24)
[2017-07-13] MEDS: DELTASONE PO SCH (10:24)
[2017-07-13] MEDS: CORDARONE PO SCH (10:26)
[2017-07-13 10:27] VITALS: BP 103/58
[2017-07-13] MEDS: REQUIP PO SCH (10:31)
[2017-07-13] MEDS ORDERED: GLUCOTROL PO SCH (12:00)
--- NOTE | 2017-07-13 12:30 | Consultation ---
History of Present Illness Consult date: 07/13/17 Requesting physician: NORBERTO RODRIGUEZ Reason for Consult: stroke History of present illness: Neurology consultation note: July 13 7017 Ms. Diaz is a 62-year-old white female patient who came to the emergency room the late night of 07/11/2017 with a history of slurred speech and numbness and weakness of the left side of the face and the left upper extremity of a Couple of days duration. She apparently had a tele neurology consultation and did not receive TPA due to prior history of GI bleed with anticoagulation. Ms. Diaz said that her problem began a few days ago with slight twisting of the left side of the face and noted somewhat slurred speech. Subsequently also noted left arm numbness and weakness which essentially brought her to the hospital on the night of 07/11/2017. Emergency CT scan of the brain reported as negative. Since admission she also had MRI brain which I personally reviewed the images and showed only mild bihemispheric subcortical lacunar infarcts due to small vessel disease but nothing appeared to be acute. MRA brain study somewhat limited by motion artifacts but no obvious major artery occlusion. She has headaches off and on. She thinks that the left side is still weak but not as much as it was. She has blurred vision in the right eye. No difficulty swallowing. Denies being weak in other extremities. She has a history of restless leg syndrome and has been on ropinirole. Also has a history of hypertension diabetes hyperlipidemia, chronic atrial fibrillation for which she was tried on Xarelto about a year ago and caused lower GI bleed for which she had extensive workup done including upper and lower GI endoscopies. History of obstructive sleep apnea syndrome diagnosed 10 years ago and has been on BiPAP but it has never been reassessed. Patient complains of being sleepy and exhausted daytime and has fallen asleep in the middle of the conversation at times. She sees a flagstone layer on outpatient basis and also sees a services coordinator. She quit smoking some years ago. No history of any alcohol. Patient's allergy list and medication list as per the record Gen. exam: Blood pressure 136/80, pulse is 80, no definite cranial or carotid bruit, throat is grade 4+ crowding, mild edema of the feet and dorsalis pedis still difficult to palpate. Central nervous system exam: Higher cortical functions: Patient alert and reasonably communicative, very mildly dysarthric speech, no aphasia. Gross memory and general intelligence sounded normal. Cranial nerves: Fundi grossly normal, pupils about 3 mm reactive. Full eye movements, no nystagmus, no visual field deficit. She does have mildly droopy bilateral eyelids and left palpebral fissure is somewhat smaller than the right palpebral fissure which patient states is new. Corneal reflexes present. Very minimal left central facial weakness noted. Lower cranial nerves normal. Motor system: Normal tone and strength in right arm and both legs. No evidence of any foot drop. Does have left upper extremity drift with mild left card dealer weakness. Overall strength in the left upper extremity about grade 4 over 5. No involuntary movements noted especially no tremor or myoclonus. Gait is almost normal and walks without assistance. Sensory exam: Patient did make some mistakes on left side of the body on double simultaneous stimulation. Otherwise she does have mildly impaired touch and pinprick in both feet up to middle of the shins. Reflexes: Deep tendon reflexes slightly brisk in the left arm compared to the right arm but symmetrical 2+ in the lower extremities and both plantar reflexes are downgoing. Impression: #1. Likely acute right hemispheric's small infarct which could be a lacunar infarct in the right basal ganglia not quite clearly demonstrated on the MRI studies. Otherwise this patient does have a subtle left facial and left arm weakness on clinical neurologic exam. MRA brain negative. #2. Obstructive sleep apnea syndrome, currently on BiPAP, history sounds like she has significant residual daytime sleepiness and fatigue. Reassessment of sleep apnea syndrome and appropriate BiPAP settings will be helpful in overall management of her conditions including medical comorbidities. #3. Mild peripheral diabetic polyneuropathy and associated restless leg syndrome. #4. Hypertension, diabetes, hyperlipidemia, chronic atrial fibrillation, obesity. Recommendation: Patient unable to take oral anticoagulants due to history of lower GI bleed in the past. Continue aspirin. Advised to lose weight. Continue BiPAP. Patient to follow with primary care physician as well as a neurologist on outpatient basis. Out patient physical therapy will be also helpful. Thank you very much for this consultation Brandon Dejesus M.D./ Neurology Past History Past Medical History: arrhythmia (A-fib), COPD, diabetes, hypertension, other ( anxiety, depression, restless leg syndrome) Past Surgical History: , Other (tubal ligation, cataract extraction) Social history: denies: smoking, alcohol abuse Family history: CAD, diabetes, hypertension Medications and Allergies Allergies Allergy/AdvReac Type Severity Reaction Status Date / Time atenolol Allergy Unknown Verified 04/06/17 07:56 cefuroxime axetil Allergy Hives Verified 04/06/17 07:56 [From Ceftin] duloxetine HCl Allergy Unknown Verified 04/06/17 07:56 [From Cymbalta] gabapentin [From Neurontin] Allergy Rash Verified 04/06/17 07:56 ketoconazole Allergy Shortness Verified 04/06/17 07:56 of Breath levofloxacin [From Levaquin] Allergy Hives Verified 04/06/17 07:56 lorazepam [From Ativan] Allergy Unknown Verified 04/06/17 07:56 rotigotine [From Neupro] Allergy Rash Verified 04/06/17 07:56 umeclidinium bromide Allergy Swelling Verified 04/06/17 07:56 [From Anoro Ellipta] vilanterol trifenatate Allergy Swelling Verified 04/06/17 07:56 [From Anoro Ellipta] albuterol AdvReac Unknown Verified 04/06/17 07:56 rivaroxaban [From Xarelto] AdvReac Bleeding Verified 04/06/17 07:56 Home Medications Medication Instructions Recorded Confirmed Last Taken Type ALPRAZolam [Xanax TAB] 1 mg PO TID #60 tablet 04/05/17 07/11/17 07/11/17 Rx Amiodarone [Cordarone 200 MG TAB] 200 mg PO BID #30 tablet 04/05/17 07/11/1704/21 Rx Furosemide [Lasix TAB] 40 mg PO BID #30 tablet 04/05/17 07/11/17 07/11/17 Rx Potassium Chloride [K-Dur] 1 tab PO QDAY #30 tablet 04/05/17 07/11/17 07/11/17 Rx Spironolactone [Aldactone] 25 mg PO QDAY #30 tablet 04/05/17 07/11/17 07/11/17 Rx Venlafaxine Xr [Effexor XR] 150 mg PO BID #60 capsule 04/05/17 07/11/17 Rx predniSONE [Deltasone] 10 mg PO .TAPER #48 tab 04/05/17 07/11/17 07/11/17 Rx rOPINIRole [Requip] 5 mg PO TID #90 tablet 04/05/17 07/11/17 07/11/17 Rx Aspirin [Aspirin BABY CHEW TAB] 81 mg PO QDAY 07/11/17 07/11/17 07/11/17 History Bupropion HCl [Wellbutrin XL] 300 mg PO QAM 07/11/17 07/11/17 07/11/17 History Diltiazem [Cardizem] 180 mg PO QDAY 07/11/17 07/11/17 07/11/17 History Hydrocortisone 2.5% [Proctosol-Hc] 28.[address] DAILY 07/11/17 07/11/17 07/11/17 History Levalbuterol HCl [Xopenex] 1.25 mg IH DAILY 07/11/17 07/11/17 07/11/17 History Levalbuterol Hfa 45 Mcg/Puff 2 puff IH Q4H 07/11/17 07/11/17 07/11/17 History [Xopenex Hfa (Nf)] Magnesium Oxide [Magnesium] 400 mg PO DAILY 07/11/17 07/11/17 07/11/17 History Omeprazole Magnesium [PriLOSEC Otc] 20 mg PO QDAY 07/11/17 07/11/17 07/11/17 History glipiZIDE [Glucotrol] 5 mg PO BID 07/11/17 07/11/17 07/11/17 History AtorvaSTATin [Lipitor] 40 mg PO QHS #30 tab 07/13/17 Unknown Rx Active Meds: Active Medications Acetaminophen (Tylenol) 650 mg PO Q4H PRN PRN Reason: Pain, Mild (1-3) Alprazolam (Xanax) 1 mg PO TID [facility] Last Admin: 07/13/17 10:24 Dose: 1 mg Amiodarone HCl (Cordarone) 200 mg PO BID [facility] Last Admin: 07/13/17 10:26 Dose: Not Given Bisacodyl (Dulcolax) [address] QDAY PRN PRN Reason: Constipation Diltiazem HCl (Cardizem Cd) 180 mg PO QDAY [facility] Last Admin: 07/13/17 10:26 Dose: Not Given Furosemide (Lasix) 40 mg PO 0600,1800 [facility] Last Admin: 07/13/17 05:49 Dose: 40 mg Glipizide (Glucotrol) 5 mg PO BIDDIAB [facility] Hydrocortisone Acetate (Proctosol-Hc) [address] DAILY [facility] Last Admin: 07/13/17 10:24 Dose: 1 applic Levalbuterol HCl (Xopenex) 0.63 mg IH Q8HRT [facility] Last Admin: 07/13/17 10:10 Dose: 0.63 mg Magnesium Hydroxide (Milk Of Magnesia) 30 ml PO Q4H PRN PRN Reason: Constipation Ondansetron HCl (Zofran) 4 mg IV Q8H PRN PRN Reason: N/V unrelieved by Reglan Oxycodone/Acetaminophen (Percocet 5/325) 1 tab PO Q6H PRN PRN Reason: Pain, Moderate (4-6) Last Admin: 07/13/17 05:49 Dose: 1 tab Prednisone (Deltasone) 40 mg PO QDAY [facility] Last Admin: 07/13/17 10:24 Dose: 40 mg Ropinirole HCl (Requip) 5 mg PO TID [facility] Last Admin: 07/13/17 10:31 Dose: 5 mg Simvastatin (Zocor) 20 mg PO QHS [facility] Last Admin: 07/12/17 21:04 Dose: 20 mg Sodium Chloride (Sodium Chloride Flush Syringe 10 Ml) 10 ml IV PRN PRN PRN Reason: LINE FLUSH Spironolactone (Aldactone) 25 mg PO QDAY [facility] Last Admin: 07/13/17 10:25 Dose: Not Given Venlafaxine HCl (Effexor Xr) 150 mg PO BID [facility] Last Admin: 07/13/17 10:23 Dose: 150 mg Physical Examination - Vital Signs Vital Signs: Vital Signs BP Pulse Ox 152/67 95 07/11/17 20:11 07/11/17 20:11 Results - Laboratory Findings CBC and BMP: 07/13/17 05:05 07/13/17 05:05 Abnormal Lab Findings: Abnormal Labs 07/12/17 07/12/17 07/12/17 05:02 13:59 16:31 MCV MCH RDW POC ABG pH 7.469 H POC ABG pCO2 45.3 H POC ABG pO2 44 L Chloride Glucose POC Glucose 113 H Triglycerides 226 H LDL Cholesterol Direct 14 L HDL Cholesterol 86 H 07/12/17 07/13/17 07/13/17 22:13 05:05 05:05 MCV 78 L MCH 25 L RDW 21.6 H POC ABG pH POC ABG pCO2 POC ABG pO2 Chloride 94.8 L Glucose 209 H POC Glucose 197 H Triglycerides LDL Cholesterol Direct HDL Cholesterol 07/13/17 07/13/17 05:35 11:53 MCV MCH RDW POC ABG pH POC ABG pCO2 POC ABG pO2 Chloride Glucose POC Glucose 207 H 147 H Triglycerides LDL Cholesterol Direct HDL Cholesterol
== END 2017-07-13 13:00 | disposition home health service (06) | DRG 64 ==
LOC: ED 19:57 → 4A 22:41 → 3A 07-12 10:13
PROVIDERS: ADMIT Internal Medicine; ATTEND Internal Medicine
PROC: 4A033R1 Measurement of Arterial Saturation, Peripheral, Percutaneous Approach (ICD-10-PCS; principal; 2017-07-12)
DX: I63.9 Cerebral infarction, unspecified (principal); J96.21 Acute and chronic respiratory failure with hypoxia; K92.1 Melena; R65.10 Systemic inflammatory response syndrome (SIRS) of non-infectious origin without acute organ dysfunction; G81.91 Hemiplegia, unspecified affecting right dominant side; J44.9 Chronic obstructive pulmonary disease, unspecified; G47.33 Obstructive sleep apnea (adult) (pediatric); F41.9 Anxiety disorder, unspecified; F32.9 Major depressive disorder, single episode, unspecified; G25.81 Restless legs syndrome; E66.01 Morbid (severe) obesity due to excess calories; E11.42 Type 2 diabetes mellitus with diabetic polyneuropathy; I48.2 Chronic atrial fibrillation; I11.0 Hypertensive heart disease with heart failure; E11.9 Type 2 diabetes mellitus without complications; K21.9 Gastro-esophageal reflux disease without esophagitis; M19.90 Unspecified osteoarthritis, unspecified site; G43.909 Migraine, unspecified, not intractable, without status migrainosus; I50.9 Heart failure, unspecified; G89.29 Other chronic pain; K76.0 Fatty (change of) liver, not elsewhere classified; Z90.710 Acquired absence of both cervix and uterus; Z88.6 Allergy status to analgesic agent; Z88.1 Allergy status to other antibiotic agents; Z88.5 Allergy status to narcotic agent; Z88.8 Allergy status to other drugs, medicaments and biological substances; Z79.899 Other long term (current) drug therapy; Z79.82 Long term (current) use of aspirin; Z98.49 Cataract extraction status, unspecified eye; Z98.51 Tubal ligation status; Z82.49 Family history of ischemic heart disease and other diseases of the circulatory system; K64.9 Unspecified hemorrhoids
CPT/HCPCS: 36415; 36600; 70450; 70544; 70551; 71010; 80048; 80061; 82803; 82962; 84484; 85007; 85014; 85018; 85025; 85027; 85610; 85670; 85730; 93005; 93010; 93306; 94640; 94760; 99291; G8978-GO; G8978-GP; G8979-GO; G8979-GP; J2060; J7512

== ENCOUNTER 2017-07-18 18:44 | Inpatient (IN) | payer MEDICARE ==
[2017-07-18] MEDS ORDERED: ATROVENT IH ONE ×2 (18:57→19:05)
[2017-07-18] MEDS ORDERED: PROVENTIL IH ONE ×2 (18:57→19:04)
[2017-07-18] MEDS ORDERED: MAGNESIUM SULFATE 2GM/50ML 2 GM/50 ML BAG IV ONE ×2 (19:05→19:29)
[2017-07-18] MEDS ORDERED: DULCOLAX PR PRN (19:28)
[2017-07-18] MEDS ORDERED: PROVENTIL IH PRN (19:28)
[2017-07-18] MEDS ORDERED: MILK OF MAGNESIA PO PRN (19:28)
[2017-07-18] MEDS ORDERED: ZOFRAN IV PRN (19:28)
[2017-07-18] MEDS ORDERED: TYLENOL PO PRN (19:28)
--- NOTE | 2017-07-18 19:28 | History and Physical Report ---
History of Present Illness Chief complaint: I cant breathe, I cant even talk History of present illness: 61 YO Female with HTN, CHF, DM, Barrets Esophagus, OA, Migraine VILLATORO, Panic Attacks, Depression, ALANA, Restless Leg Syndrome, A Fib, COPD on Home Oxygen, presents to ED for evaluation. Pt states that she has experienced shortness of breath for the past 3 days with worsening symptoms over the past 2 hours. She states that (despite her medical condition) that she was out driving. However, she had to stop because of her breathing difficulty. EMS Notified, and pt transported to [facility] for evaluation. Pt denies syncope, CP, Palpitations, NVD, recent ill contacts, prolonged travel/immobility, Individual/Family history of DVT/PE. Pt denies cough, fever, chills, unintentional weight loss, fever, or night sweats. Pt acknkowledges redness, pain and swelling to her left leg over the past 24 Past History Past Medical History: atrial fib, diabetes, heart failure, hypertension, stroke Past Surgical History: Other (stent, hysterectomy, , all teeth removed , cataract surgery, upper gi surgery, PAT ablation r) greater saphenous, PORT in and PORT out, HEART CATH, VASCULAR SURGERY rt leg.Raynards, Rt and left leg stents in [facility]) Social history: , lives with family. denies: smoking, alcohol abuse, prescription drug abuse Family history: CAD, diabetes, hypertension Medications and Allergies Allergies Allergy/AdvReac Type Severity Reaction Status Date / Time atenolol Allergy Unknown Verified 04/06/17 07:56 cefuroxime axetil Allergy Hives Verified 04/06/17 07:56 [From Ceftin] duloxetine HCl Allergy Unknown Verified 04/06/17 07:56 [From Cymbalta] gabapentin [From Neurontin] Allergy Rash Verified 04/06/17 07:56 ketoconazole Allergy Shortness Verified 04/06/17 07:56 of Breath levofloxacin [From Levaquin] Allergy Hives Verified 04/06/17 07:56 lorazepam [From Ativan] Allergy Unknown Verified 04/06/17 07:56 rotigotine [From Neupro] Allergy Rash Verified 04/06/17 07:56 umeclidinium bromide Allergy Swelling Verified 04/06/17 07:56 [From Anoro Ellipta] vilanterol trifenatate Allergy Swelling Verified 04/06/17 07:56 [From Anoro Ellipta] albuterol AdvReac Unknown Verified 04/06/17 07:56 rivaroxaban [From Xarelto] AdvReac Bleeding Verified 04/06/17 07:56 Home Medications Medication Instructions Recorded Confirmed Last Taken Type ALPRAZolam [Xanax TAB] 1 mg PO TID #60 tablet 04/05/17 07/11/17 07/11/17 Rx Amiodarone [Cordarone 200 MG TAB] 200 mg PO BID #30 tablet 04/05/17 07/11/1704/21 Rx Furosemide [Lasix TAB] 40 mg PO BID #30 tablet 04/05/17 07/11/17 07/11/17 Rx Potassium Chloride [K-Dur] 1 tab PO QDAY #30 tablet 04/05/17 07/11/17 07/11/17 Rx Spironolactone [Aldactone] 25 mg PO QDAY #30 tablet 04/05/17 07/11/17 07/11/17 Rx Venlafaxine Xr [Effexor XR] 150 mg PO BID #60 capsule 04/05/17 07/11/17 Rx predniSONE [Deltasone] 10 mg PO .TAPER #48 tab 04/05/17 07/11/17 07/11/17 Rx rOPINIRole [Requip] 5 mg PO TID #90 tablet 04/05/17 07/11/17 07/11/17 Rx Aspirin [Aspirin BABY CHEW TAB] 81 mg PO QDAY 07/11/17 07/11/17 07/11/17 History Bupropion HCl [Wellbutrin XL] 300 mg PO QAM 07/11/17 07/11/17 07/11/17 History Diltiazem [Cardizem] 180 mg PO QDAY 07/11/17 07/11/17 07/11/17 History Hydrocortisone 2.5% [Proctosol-Hc] 28.35 gm [place] DAILY 07/11/17 07/11/17 07/11/17 History Levalbuterol HCl [Xopenex] 1.25 mg IH DAILY 07/11/17 07/11/17 07/11/17 History Levalbuterol Hfa 45 Mcg/Puff 2 puff IH Q4H 07/11/17 07/11/17 07/11/17 History [Xopenex Hfa (Nf)] Magnesium Oxide [Magnesium] 400 mg PO DAILY 07/11/17 07/11/17 07/11/17 History Omeprazole Magnesium [PriLOSEC Otc] 20 mg PO QDAY 07/11/17 07/11/17 07/11/17 History glipiZIDE [Glucotrol] 5 mg PO BID 07/11/17 07/11/17 07/11/17 History AtorvaSTATin [Lipitor] 40 mg PO QHS #30 tab 07/13/17 Unknown Rx Review of Systems Constitutional: no weight loss, no weight gain, no fever, no chills Ears, nose, mouth and throat: no ear pain, no ear discharge, no tinnitis, no decreased hearing, no nose pain, no nasal congestion Breasts: no change in shape, no swelling, no mass Cardiovascular: no chest pain, no orthopnea, no palpitations Respiratory: shortness of breath Gastrointestinal: no nausea, no vomiting, no diarrhea Genitourinary Female: no dysmenorrhea, no pelvic pain, no flank pain, no menorrhagia Rectal: no pain, no incontinence, no bleeding Musculoskeletal: no neck stiffness, no neck pain, no shooting arm pain, no arm numbness/tingling, no low back pain Integumentary: redness (Left ankle, ) Neurological: weakness, lack of coordination, no head injury, no transient paralysis, no paralysis Psychiatric: no memory loss, no change in sleep habits, no sleep disturbances, no insomnia Endocrine: no cold intolerance, no heat intolerance, no polyphagia, no excessive thirst Hematologic/Lymphatic: no easy bruising, no easy bleeding Allergic/Immunologic: no urticaria, no allergic rhinitis, no wheezing Exam - Constitutional Vitals: Temp Pulse Resp BP Pulse Ox 98.3 F 79 20 151/87 100 07/18/17 18:47 07/18/17 19:14 07/18/17 19:14 07/18/17 18:47 07/18/17 19:09 General appearance: Present: mild distress, obese - EENT Eyes: Present: PERRL ENT: hearing intact, clear oral mucosa - Neck Neck: Present: supple, normal ROM - Respiratory Respiratory effort: labored Respiratory: bilateral: diminished, rhonchi - Cardiovascular Rhythm: irregularly irregular - Extremities Extremities: pulses symmetrical, No edema Extremity abnormal: edema, erythema (LLE) Peripheral Pulses: within normal limits - Abdominal General gastrointestinal: Present: soft, non-tender, non-distended, normal bowel sounds Female genitourinary: Present: normal - Integumentary Integumentary: Present: clear, dry - Musculoskeletal Musculoskeletal: generalized weakness - Psychiatric Psychiatric: appropriate mood/affect, intact judgment & insight - Neurologic Neurologic: CNII-XII intact, moves all extremities, no gait normal Results - Labs CBC & Chem 7: 07/18/17 Unknown 07/18/17 20:00 Assessment and Plan - Patient Problems (1) Acute respiratory failure with hypoxemia Current Visit: Yes Status: Acute Plan to address problem: Supplemental oxygen, nebs, aspiration precautions, NIPPV, pulmonary toilet, (2) COPD with exacerbation Current Visit: Yes Status: Acute Plan to address problem: IV abx, steroids, nebulizer therapy, supplemental oxygen, (3) CHF (congestive heart failure) Current Visit: Yes Status: Acute Qualifiers: Congestive heart failure type: C Congestive heart failure chronicity: C Plan to address problem: Fluid restriction, diuresis, monitor uop for negative fluid balance, resume home medication, telemetry, (4) Cellulitis Current Visit: Yes Status: Acute Qualifiers: Site of cellulitis: extremity Site of cellulitis of extremity: lower extremity Site of cellulitis of trunk: S Laterality: left Qualified Code(s ): L03.116 - Cellulitis of left lower limb Plan to address problem: IV abx, supportive care, serial physical exam (5) Atrial fibrillation Current Visit: Yes Status: Acute Qualifiers: Atrial fibrillation type: A Plan to address problem: Resume rate control, supportive care, telemetry (6) Obesity Current Visit: Yes Status: Acute Qualifiers: Obesity type: O Obesity classification: O Serious obesity comorbidity presence: S Body mass index: B Plan to address problem: Balanced diet, increased physical activity, outpatient evaluation for bariatric surgery (7) DVT prophylaxis Current Visit: Yes Status: Acute
[2017-07-18] MEDS ORDERED: VANCOMYCIN/NS 1 GM/250 ML 1 GM/250 ML BAG IV ONE (19:31)
--- NOTE | 2017-07-18 19:32 | Emergency Department Report ---
ED General Adult HPI - General Chief complaint: Dyspnea/Respdistress Stated complaint: LITO Time Seen by Provider: 07/18/17 19:22 Source: EMS Mode of arrival: Stretcher Limitations: Physical Limitation - History of Present Illness Initial comments: Patient has history of end-stage COPD. She is well known to this facility. She states he is stop smoking. She tells me that she was admitted about a week ago for stroke affecting her left side. She is on CPAP or BiPAP at home. She is on home O2. She states that (despite her medical condition) that she was out driving. However, she had to stop because of her breathing difficulty. Clearly this is not a patient that is physically fit to drive in my opinion even at her baseline and certainly not after a recent stroke. In any case, she was brought to this facility for further evaluation by EMS. She is on BiPAP at the time of my evaluation. She is reasonably alert and able to answer questions. She denies chest pain. She states that over the last 24 hours that her left leg has gotten red and hot. She is aware of skin infection on her back. However she does not state that she has been previously treated for MRSA which seems to be now likely. She denies a history of venous thromboembolism. -: hour(s) (acute worsening for hours), year(s) (end-stage COPD for years) Consistency: other (not currently complaining of significant pain) Improves with: none Worsens with: none Associated Symptoms: denies other symptoms - Related Data Home Medications Medication Instructions Recorded Confirmed Last Taken Aspirin [Aspirin BABY CHEW TAB] 81 mg PO QDAY 07/11/17 07/11/17 07/11/17 Bupropion HCl [Wellbutrin XL] 300 mg PO QAM 07/11/17 07/11/17 07/11/17 Diltiazem [Cardizem] 180 mg PO QDAY 07/11/17 07/11/17 07/11/17 Hydrocortisone 2.5% [Proctosol-Hc] 28.35 gm [place] DAILY 07/11/17 07/11/17 07/11/17 Levalbuterol HCl [Xopenex] 1.25 mg IH DAILY 07/11/17 07/11/17 07/11/17 Levalbuterol Hfa 45 Mcg/Puff 2 puff IH Q4H 07/11/17 07/11/17 07/11/17 [Xopenex Hfa (Nf)] Magnesium Oxide [Magnesium] 400 mg PO DAILY 07/11/17 07/11/17 07/11/17 Omeprazole Magnesium [PriLOSEC Otc] 20 mg PO QDAY 07/11/17 07/11/17 07/11/17 glipiZIDE [Glucotrol] 5 mg PO BID 07/11/17 07/11/17 07/11/17 Previous Rx's Medication Instructions Recorded Last Taken Type ALPRAZolam [Xanax TAB] 1 mg PO TID #60 tablet 04/05/17 07/11/17 Rx Amiodarone [Cordarone 200 MG TAB] 200 mg PO BID #30 tablet 04/05/17 07/11/17 Rx Furosemide [Lasix TAB] 40 mg PO BID #30 tablet 04/05/17 07/11/17 Rx Potassium Chloride [K-Dur] 1 tab PO QDAY #30 tablet 04/05/17 07/11/17 Rx Spironolactone [Aldactone] 25 mg PO QDAY #30 tablet 04/05/17 07/11/17 Rx Venlafaxine Xr [Effexor XR] 150 mg PO BID #60 capsule 04/05/17 07/11/17 Rx predniSONE [Deltasone] 10 mg PO .TAPER #48 tab 04/05/17 07/11/17 Rx rOPINIRole [Requip] 5 mg PO TID #90 tablet 04/05/17 07/11/17 Rx AtorvaSTATin [Lipitor] 40 mg PO QHS #30 tab 07/13/17 Unknown Rx Allergies Allergy/AdvReac Type Severity Reaction Status Date / Time atenolol Allergy Unknown Verified 04/06/17 07:56 cefuroxime axetil Allergy Hives Verified 04/06/17 07:56 [From Ceftin] duloxetine HCl Allergy Unknown Verified 04/06/17 07:56 [From Cymbalta] gabapentin [From Neurontin] Allergy Rash Verified 04/06/17 07:56 ketoconazole Allergy Shortness Verified 04/06/17 07:56 of Breath levofloxacin [From Levaquin] Allergy Hives Verified 04/06/17 07:56 lorazepam [From Ativan] Allergy Unknown Verified 04/06/17 07:56 rotigotine [From Neupro] Allergy Rash Verified 04/06/17 07:56 umeclidinium bromide Allergy Swelling Verified 04/06/17 07:56 [From Anoro Ellipta] vilanterol trifenatate Allergy Swelling Verified 04/06/17 07:56 [From Anoro Ellipta] albuterol AdvReac Unknown Verified 04/06/17 07:56 rivaroxaban [From Xarelto] AdvReac Bleeding Verified 04/06/17 07:56 ED Review of Systems ROS: Stated complaint: LITO Other details as noted in HPI Constitutional: denies: chills, fever Eyes: denies: eye pain, eye discharge, vision change ENT: denies: ear pain, throat pain Respiratory: shortness of breath, wheezing. denies: cough Cardiovascular: denies: chest pain, palpitations Endocrine: no symptoms reported Gastrointestinal: denies: abdominal pain, nausea, diarrhea Genitourinary: denies: urgency, dysuria, discharge Musculoskeletal: as per HPI. denies: back pain, joint swelling, arthralgia Skin: denies: rash, lesions Neurological: as per HPI, weakness (left sided weakness). denies: headache, paresthesias Psychiatric: denies: anxiety, depression Hematological/Lymphatic: denies: easy bleeding, easy bruising ED Past Medical Hx - Past Medical History Previous Medical History?: Yes Hx Hypertension: Yes Hx Congestive Heart Failure: Yes Hx Diabetes: Yes Hx GERD: Yes (Darby's esophagus) Hx Arthritis: Yes Hx Headaches / Migraines: Yes Hx Psychiatric Treatment: Yes (anxiety/panic attacks, depression) Hx Asthma: Yes Hx COPD: Yes Hx HIV: No Additional medical history: chronic back problems/pain cardiac mass 06/2015. restless leg syndrome,. sleep apnea. pituitary gland tumor. A-Fib, fatty liver. Epicardial fat pad "cardiac mass". CARDIAC MASS. REYNAUD'S DISEASE - Surgical History Past Surgical History?: Yes Hx Coronary Stent: Yes Additional Surgical History: hysterectomy, , all teeth removed, cataract surgery, upper gi surgery, PAT ablation r) greater saphenous, PORT in and PORT out, HEART CATH, VASCULAR SURGERY rt leg.Raynards, Rt and left leg stents in CIV JointDisease - Social History Smoking Status: Former Smoker Substance Use Type: None - Medications Home Medications: Home Medications Medication Instructions Recorded Confirmed Last Taken Type ALPRAZolam [Xanax TAB] 1 mg PO TID #60 tablet 04/05/17 07/11/17 07/11/17 Rx Amiodarone [Cordarone 200 MG TAB] 200 mg PO BID #30 tablet 04/05/17 07/11/1704/21 Rx Furosemide [Lasix TAB] 40 mg PO BID #30 tablet 04/05/17 07/11/17 07/11/17 Rx Potassium Chloride [K-Dur] 1 tab PO QDAY #30 tablet 04/05/17 07/11/17 07/11/17 Rx Spironolactone [Aldactone] 25 mg PO QDAY #30 tablet 04/05/17 07/11/17 07/11/17 Rx Venlafaxine Xr [Effexor XR] 150 mg PO BID #60 capsule 04/05/17 07/11/17 Rx predniSONE [Deltasone] 10 mg PO .TAPER #48 tab 04/05/17 07/11/17 07/11/17 Rx rOPINIRole [Requip] 5 mg PO TID #90 tablet 04/05/17 07/11/17 07/11/17 Rx Aspirin [Aspirin BABY CHEW TAB] 81 mg PO QDAY 07/11/17 07/11/17 07/11/17 History Bupropion HCl [Wellbutrin XL] 300 mg PO QAM 07/11/17 07/11/17 07/11/17 History Diltiazem [Cardizem] 180 mg PO QDAY 07/11/17 07/11/17 07/11/17 History Hydrocortisone 2.5% [Proctosol-Hc] 28.35 gm [place] DAILY 07/11/17 07/11/17 07/11/17 History Levalbuterol HCl [Xopenex] 1.25 mg IH DAILY 07/11/17 07/11/17 07/11/17 History Levalbuterol Hfa 45 Mcg/Puff 2 puff IH Q4H 07/11/17 07/11/17 07/11/17 History [Xopenex Hfa (Nf)] Magnesium Oxide [Magnesium] 400 mg PO DAILY 07/11/17 07/11/17 07/11/17 History Omeprazole Magnesium [PriLOSEC Otc] 20 mg PO QDAY 07/11/17 07/11/17 07/11/17 History glipiZIDE [Glucotrol] 5 mg PO BID 07/11/17 07/11/17 07/11/17 History AtorvaSTATin [Lipitor] 40 mg PO QHS #30 tab 07/13/17 Unknown Rx ED Physical Exam - General Limitations: Physical Limitation General appearance: other (morbidly obese) - Head Head exam: Present: atraumatic, normocephalic - Eye Eye exam: Present: normal appearance. Absent: scleral icterus - ENT ENT exam: Present: mucous membranes moist - Neck Neck exam: Present: normal inspection - Respiratory Respiratory exam: Present: wheezes, decreased breath sounds. Absent: respiratory distress - Cardiovascular Cardiovascular Exam: Present: regular rate, normal rhythm. Absent: systolic murmur, diastolic murmur, rubs, gallop - GI/Abdominal GI/Abdominal exam: Present: soft, normal bowel sounds. Absent: distended, tenderness, guarding, rebound - Extremities Exam Extremities exam: Present: tenderness, normal capillary refill, other (erythema and warmth of the distal leg below the knee and mostly above the ankle. Pulses are present distally. The foot is not cold. Pulses are perhaps diminished bilaterally but symmetrical.). Absent: pedal edema, joint swelling, calf tenderness - Back Exam Back exam: Present: normal inspection - Neurological Exam Neurological exam: Present: alert, oriented X3, motor sensory deficit (mild left hemiparesis). Absent: CN II-XII intact - Psychiatric Psychiatric exam: Present: normal affect, normal mood - Skin Skin exam: Present: warm, dry, other (multiple excoriated lesions. One lesion on the patient's back which is not fluctuant but consistent with MRSA. Cellulitis of the lower leg left). Absent: rash ED Course Vital Signs 07/18/17 07/18/17 07/18/17 18:47 19:09 19:13 Temperature 98.3 F Pulse Rate 88 81 Pulse Rate [ 79 Anterior Bilateral Throughout] Respiratory 30 H 25 H Rate Respiratory 20 Rate [Anterior Bilateral Throughout] Blood Pressure 151/87 O2 Sat by Pulse 100 100 Oximetry 07/18/17 19:14 Temperature Pulse Rate Pulse Rate [ 79 Anterior Bilateral Throughout] Respiratory Rate Respiratory 20 Rate [Anterior Bilateral Throughout] Blood Pressure O2 Sat by Pulse Oximetry - Reevaluation(s) Reevaluation #1: BiPAP was continued. A blood gas was ordered. I requested the hospitalist involved case management on the patient's driving. I filled out a request for review of her driving company C by law enforcement agent. Dr. Arvizu will be admitting the patient for further care and evaluation. I have ordered blood cultures and empirically started the patient on MRSA coverage. She has a cellulitis and also some excoriated lesions as well as lesion consistent with MRSA on her back. Further care will be per the hospitalist service. Laboratory tests are yet pending. 07/18/17 19:34 07/18/17 19:36 ED Medical Decision Making - EKG Data -: EKG Interpreted by Me EKG shows normal: sinus rhythm, axis, intervals (somewhat short WA interval), QRS complexes, ST-T waves - EKG Data Interpretation: nonspecific ST-T wave talisha - Radiology Data interpreted by me: Rest x-ray shows no acute process and possibly cardiomegaly Critical care attestation.: If time is entered above; I have spent that time in minutes in the direct care of this critically ill patient, excluding procedure time. ED Disposition Clinical Impression: End stage COPD, Cellulitis of left leg Respiratory failure Qualifiers: Chronicity: acute on chronic Respiratory failure complication: hypercapnia Qualified Code(s): J96.22 - Acute and chronic respiratory failure with hypercapnia Disposition: - OP ADMIT IP TO THIS HOSP Is pt being admited?: Yes Does the pt Need Aspirin: Yes Condition: Stable Instructions: Chronic Obstructive Pulmonary Disease (ED) Referrals: PRIMARY CARE, [Primary Care Provider] - 3-5 Days Time of Disposition: 19:39
[2017-07-18] MEDS ORDERED: D50W (25GM) Syringe IV PRN (19:33)
[2017-07-18 19:54] LABS: Basophils % (Auto) 0.1 % (0.0-1.8); Eosinophils % (Auto) 0.4 % (0.0-4.3); Hemoglobin 9.3 gm/dl (10.1-14.3); Mean Corpuscular HGB Conc 32 % (30-34); Mean Corpuscular Volume 78 fl (79-97); Platelet Count 215 K/mm3 (140-440); Red Blood Count 3.72 M/mm3 (3.65-5.03); White Blood Count 11.6 K/mm3 (4.5-11.0)
[2017-07-18 19:56] LABS: Mean Corpuscular Hemoglobin 25 pg (28-32)
[2017-07-18 19:57] LABS: Red Cell Distribution Width 22.6 % (13.2-15.2)
[2017-07-18] MEDS ORDERED: VANCOMYCIN 2,000 MG in NACL 0.9% 500 ML 500 ML IV ONE (20:00)
[2017-07-18] MEDS ORDERED: VANCOMYCIN PHARMACY TO DOSE IV SCH (20:00)
[2017-07-18 20:04] LABS: INR 0.94 (0.87-1.13); Partial Thromboplastin Time 21.3 Sec. (24.2-36.6)
[2017-07-18 20:27] LABS: ISTAT Base Excess 4; ISTAT PCO2 46.9 (35-45); ISTAT PH 7.399 (7.35-7.45); ISTAT PO2 301 (80-105); ISTAT SO2 100; ISTAT TCO2 30
[2017-07-18 20:34] LABS: Anion Gap 18 mmol/L; BUN/Creatinine Ratio 18.57; Blood Urea Nitrogen 13 mg/dL (7-17); Calcium 8.4 mg/dL (8.4-10.2); Carbon Dioxide 26 mmol/L (22-30); Glucose 194 mg/dL (65-100); Potassium 3.9 mmol/L (3.6-5.0); Sodium 141 mmol/L (137-145)
[2017-07-18 20:38] LABS: Alanine Aminotransferase 25 units/L (7-56); Albumin 3.6 g/dL (3.9-5); Albumin/Globulin Ratio 1.6 %; Alkaline Phosphatase 63 units/L (35-129); Total Protein 5.8 g/dL (6.3-8.2)
[2017-07-18] MEDS: XANAX PO SCH (20:43)
[2017-07-18 20:48] LABS: Bilirubin,Direct < 0.2 mg/dL (0-0.2)
[2017-07-18] MEDS ORDERED: CORDARONE PO SCH (22:00)
[2017-07-18] MEDS ORDERED: EFFEXOR XR PO SCH (22:00)
[2017-07-18] MEDS: LASIX PO SCH (23:06)
[2017-07-18] MEDS: REQUIP PO SCH (23:06)
[2017-07-19] MEDS ORDERED: PERCOCET 5/325 PO PRN (00:12)
[2017-07-19] MEDS: LASIX PO SCH (06:04)
--- NOTE | 2017-07-19 07:45 | XRay Report ---
AP CHEST: HISTORY: Shortness of breath There is mild cardiomegaly. Pulmonary vascularity is within normal limits. The lungs are clear. The bony structures are intact. No significant change since 07/11/17. IMPRESSION: Cardiomegaly. Lungs clear.
[2017-07-19] MEDS ORDERED: VANCOMYCIN 1,750 MG in NACL 0.9% 500 ML 500 ML IV SCH (08:00)
[2017-07-19] MEDS ORDERED: PROCTOSOL-HC PR SCH (10:00)
[2017-07-19] MEDS ORDERED: PROTONIX PO SCH (10:00)
[2017-07-19] MEDS ORDERED: NON-FORMULARY (Bupropion Hcl [Wellbutrin Xl] 300 MG) PO SCH (10:00)
[2017-07-19] MEDS ORDERED: MAGNESIUM OXIDE 400 MG PO SCH (10:00)
[2017-07-19] MEDS ORDERED: ALDACTONE PO SCH (10:00)
[2017-07-19] MEDS ORDERED: BABY ASPIRIN PO SCH (10:00)
[2017-07-19] MEDS ORDERED: K-DUR PO SCH (10:00)
[2017-07-19] MEDS ORDERED: NON-FORMULARY (Omeprazole Magnesium [Prilosec Otc] 20 MG) PO SCH (10:00)
[2017-07-19] MEDS ORDERED: CARDIZEM PO SCH (10:00)
[2017-07-19] MEDS ORDERED: WELLBUTRIN XL PO SCH (10:00)
--- NOTE | 2017-07-19 11:23 | Admit Criteria Form ---
Admission Criteria Documentation: COPD Clinical Indications for Admission to Inpatient Care ([place]/ check or initial the applicable condition/criteria) Admission is indicated for ANY ONE of the following (1)(2)(3): [ ]I. Acute exacerbation by high-risk comorbidity(e.g., pneumonia, dysrhythmia, heart failure, pleural effusion, pneumothorax) or severe underlying COPD (eg, baseline FEV1 less than 50% predicted) [X ]II. Inpatient admission required[A] rather than observation care (see Chronic Obstructive Pulmonary Disease: Observation Care) because of ANY ONE of the following: [ ]a) New or pre-existing signs or symptoms of COPD (eg, dyspnea or Tachypnea at rest or with minimal activity) that persist despite outpatient and observation care treatment [ ]b) New-onset hypoxemia (room air SaO2 less than 90%, PO2 less than 60 mm Hg (8.0 kPa)) that persists despite outpatient and observation care treatment [ ]c) Worsening of pre-existing hypoxemia (eg, new or increased requirement for supplemental oxygen to maintain oxygenation at baseline level) that persists despite outpatient and observation care treatment, with oxygen treatment needs performable only in acute inpatient setting [ X]d) Hypercarbia (PCO2 greater than 40 mm Hg (5.3 kPa))-induced respiratory acidosis (pH less than 7.35) that persists despite outpatient and observation care treatment [ ]e) Supplemental oxygen or respiratory treatments for over 24 hours that are performable only in acute inpatient setting [ ]f) Chest tube placement with active evacuation (e.g., suction, drainage) (6) [X ]g) Other condition, treatment or monitoring requiring inpatient admission [ ]III. Planned invasive surgical or diagnostic procedures requiring acute- care hospitalization [X ]IV. Acute respiratory failure (e.g., uncompensated hypercarbia, severe hypoxemia) [ ]V. Severe comorbid condition (e.g., severe steroid myopathy, acute vertebral fracture) that has acutely worsened pulmonary function [ ]. Altered mental status that is severe or persistent Extended stay beyond goal length of stay may be needed for (29)(30)(31)(32)(33) : [ ]a ) Respiratory Failure. [ ]b) Severe or persisting hypoxemia or hypercarbia [ ]c) Severe or persistent dyspnea [ ]d) Clinically significant Comorbidities (e.g. chronic heart failure, atrial fibrillation with rapid response, pneumonia)(36) [ ]e) Malnutrition (33) The original [facility] content created by [facility] has been revised. The portions of the content which have been revised are identified through the use of italic text or in bold, and [facility] has neither reviewed nor approved the modified material. All other unmodified content is copyright [facility]. Please see references footnoted in the original [facility] edition 2017 Admission Criteria Met: Yes
[2017-07-19] MEDS ORDERED: CARDIZEM CD PO SCH (12:00)
[2017-07-19 12:59] VITALS: BP 131/66
[2017-07-19] MEDS: REQUIP PO SCH (13:34)
[2017-07-19] MEDS: XANAX PO SCH (13:34)
--- NOTE | 2017-07-19 15:48 | Discharge Summary ---
Providers - Providers Date of Admission: 07/18/17 19:28 Date of discharge: 07/19/17 Attending physician: AMANDA MOTA 07/18/17 19:40 Consult to Case Management [CONS] Routine Services Needed at Discharge: Home Health Services [employer] Occupational Therapy Physical Therapy Notified:: yes Was contact made?: Yes Additional Physician Instructions: Additionally police evaluate the patient' s functional capacity to drive. Primary care physician: CHARLES UMANA Hospitalization Condition: Stable Hospital course: Left AMA before being seen; did not sign AMA forms. Disposition: DC-07 LEFT AGAINST MED ADVICE Core Measure Documentation - Palliative Care Palliative Care/ Comfort Measures: Not Applicable - Core Measures Any of the following diagnoses?: none Exam - Constitutional Vitals: Temp Pulse Resp BP Pulse Ox 97.5 F L 88 18 131/66 98 07/19/17 12:03 07/19/17 12:03 07/19/17 12:03 07/19/17 12:03 07/19/17 12:03 Plan Follow up with: PRIMARY CAREMD [Referring] - 3-5 Days Forms: AMA Form
== END 2017-07-19 14:35 | disposition left against medical advice (07) | DRG 189 ==
LOC: ED 18:44 → 4A 19:28
PROVIDERS: ADMIT Internal Medicine; ATTEND Internal Medicine
PROC: 4A033R1 Measurement of Arterial Saturation, Peripheral, Percutaneous Approach (ICD-10-PCS; principal; 2017-07-18)
DX: J96.01 Acute respiratory failure with hypoxia (principal); J44.1 Chronic obstructive pulmonary disease with (acute) exacerbation; Z68.43 Body mass index [BMI] 50.0-59.9, adult; L03.116 Cellulitis of left lower limb; F41.9 Anxiety disorder, unspecified; I48.91 Unspecified atrial fibrillation; E66.9 Obesity, unspecified; I11.0 Hypertensive heart disease with heart failure; I50.9 Heart failure, unspecified; E11.9 Type 2 diabetes mellitus without complications; K22.70 Barrett's esophagus without dysplasia; F32.9 Major depressive disorder, single episode, unspecified; Z88.8 Allergy status to other drugs, medicaments and biological substances; Z71.3 Dietary counseling and surveillance; Z79.82 Long term (current) use of aspirin; Z90.710 Acquired absence of both cervix and uterus; Z87.891 Personal history of nicotine dependence; Z83.3 Family history of diabetes mellitus; Z82.49 Family history of ischemic heart disease and other diseases of the circulatory system; Z79.899 Other long term (current) drug therapy
CPT/HCPCS: 36415; 71010; 80048; 80074; 82140; 82803; 82962; 83735; 83880; 84484; 85025; 85610; 85730; 87040; 87086; 93005; 93010; 94640; 94760; 96374; 96375; A9270-GY; J1815; J2930; J3370; J3475; J7040

== ENCOUNTER 2017-08-03 21:29 | Emergency (ER) | payer MEDICARE ==
[2017-08-03] MEDS ORDERED: ATROVENT IH ONE ×2 (21:38→23:07)
[2017-08-03] MEDS ORDERED: XOPENEX IH ONE ×2 (21:38→23:06)
[2017-08-03 23:05] VITALS: BP 147/68
[2017-08-03 23:56] LABS: Mean Corpuscular HGB Conc 32 % (30-34); Mean Corpuscular Volume 76 fl (79-97); Platelet Count 290 K/mm3 (140-440); Red Blood Count 3.68 M/mm3 (3.65-5.03); White Blood Count 9.9 K/mm3 (4.5-11.0)
[2017-08-03 23:57] LABS: Mean Corpuscular Hemoglobin 25 pg (28-32); Red Cell Distribution Width 22.7 % (13.2-15.2)
[2017-08-03] MEDS ORDERED: MAGNESIUM SULFATE 2GM/50ML 2 GM/50 ML BAG IV ONE (23:59)
[2017-08-04] MEDS ORDERED: DUONEB *Not for PRN Use IH ONE (00:01)
[2017-08-04 00:05] LABS: Anion Gap 23 mmol/L; BUN/Creatinine Ratio 25.71; Blood Urea Nitrogen 36 mg/dL (7-17); Carbon Dioxide 26 mmol/L (22-30); Chloride 92.7 mmol/L (98-107); Glucose 289 mg/dL (65-100); Potassium 4.2 mmol/L (3.6-5.0); Sodium 137 mmol/L (137-145)
[2017-08-04 00:35] LABS: ISTAT Base Excess 6; ISTAT HCO3 30.1; ISTAT PCO2 40.7 (35-45); ISTAT PH 7.476 (7.35-7.45); ISTAT PO2 78 (80-105); ISTAT SO2 96; ISTAT TCO2 31
[2017-08-04 05:40] LABS: Anisocytosis 1+; Basophils % (Manual) 0 % (0.0-1.8); Blastocytes % (Manual) 0 %; Elliptocytes 1+; Eosinophils % (Manual) 0 % (0.0-4.3); Hypochromasia 1+; Ovalocytes 1+
[2017-08-04 05:41] LABS: Diff Status Complete; Polychromasia Rare; Tear Drop Cells Rare
--- NOTE | 2017-08-04 09:13 | Emergency Department Report ---
ED Shortness of Breath HPI - General Chief Complaint: Dyspnea/Respdistress Stated Complaint: LITO Time Seen by Provider: 08/03/17 23:30 Source: patient, EMS Mode of arrival: Stretcher Limitations: Physical Limitation - History of Present Illness MD Complaint: shortness of breath, cough (dry cough) -: Gradual, days(s) (2) Severity: moderate Pain Scale: 8 Improves With: nothing Worsens With: coughing Known History Of: COPD Context: recent URI Associated Symptoms: chest pain, pain with inspiration, cough Treatments Prior to Arrival: oxygen, bronchodilator - Related Data Home Medications Medication Instructions Recorded Confirmed Last Taken Aspirin [Aspirin BABY CHEW TAB] 81 mg PO QDAY 07/11/17 07/11/17 07/11/17 Bupropion HCl [Wellbutrin XL] 300 mg PO QAM 07/11/17 07/11/17 07/11/17 Diltiazem [Cardizem] 180 mg PO QDAY 07/11/17 07/11/17 07/11/17 Hydrocortisone 2.5% [Proctosol-Hc] 28.35 gm [place] DAILY 07/11/17 07/11/17 07/11/17 Levalbuterol HCl [Xopenex] 1.25 mg IH DAILY 07/11/17 07/11/17 07/11/17 Levalbuterol Hfa 45 Mcg/Puff 2 puff IH Q4H 07/11/17 07/11/17 07/11/17 [Xopenex Hfa (Nf)] Magnesium Oxide [Magnesium] 400 mg PO DAILY 07/11/17 07/11/17 07/11/17 Omeprazole Magnesium [PriLOSEC Otc] 20 mg PO QDAY 07/11/17 07/11/17 07/11/17 glipiZIDE [Glucotrol] 5 mg PO BID 07/11/17 07/11/17 07/11/17 Previous Rx's Medication Instructions Recorded Last Taken Type ALPRAZolam [Xanax TAB] 1 mg PO TID #60 tablet 04/05/17 07/11/17 Rx Amiodarone [Cordarone 200 MG TAB] 200 mg PO BID #30 tablet 04/05/17 07/11/17 Rx Furosemide [Lasix TAB] 40 mg PO BID #30 tablet 04/05/17 07/11/17 Rx Potassium Chloride [K-Dur] 1 tab PO QDAY #30 tablet 04/05/17 07/11/17 Rx Spironolactone [Aldactone] 25 mg PO QDAY #30 tablet 04/05/17 07/11/17 Rx Venlafaxine Xr [Effexor XR] 150 mg PO BID #60 capsule 04/05/17 07/11/17 Rx predniSONE [Deltasone] 10 mg PO .TAPER #48 tab 04/05/17 07/11/17 Rx rOPINIRole [Requip] 5 mg PO TID #90 tablet 04/05/17 07/11/17 Rx AtorvaSTATin [Lipitor] 40 mg PO QHS #30 tab 07/13/17 Unknown Rx Allergies Allergy/AdvReac Type Severity Reaction Status Date / Time atenolol Allergy Unknown Verified 04/06/17 07:56 cefuroxime axetil Allergy Hives Verified 04/06/17 07:56 [From Ceftin] duloxetine HCl Allergy Unknown Verified 04/06/17 07:56 [From Cymbalta] gabapentin [From Neurontin] Allergy Rash Verified 04/06/17 07:56 ketoconazole Allergy Shortness Verified 04/06/17 07:56 of Breath levofloxacin [From Levaquin] Allergy Hives Verified 04/06/17 07:56 lorazepam [From Ativan] Allergy Unknown Verified 04/06/17 07:56 rotigotine [From Neupro] Allergy Rash Verified 04/06/17 07:56 umeclidinium bromide Allergy Swelling Verified 04/06/17 07:56 [From Anoro Ellipta] vilanterol trifenatate Allergy Swelling Verified 04/06/17 07:56 [From Anoro Ellipta] albuterol AdvReac Unknown Verified 04/06/17 07:56 rivaroxaban [From Xarelto] AdvReac Bleeding Verified 04/06/17 07:56 ED Review of Systems ROS: Stated complaint: LITO Other details as noted in HPI Comment: All other systems reviewed and negative Constitutional: malaise, weakness Eyes: denies: eye discharge, vision change ENT: denies: as per HPI, throat pain, dental pain, hearing loss, epistaxis Respiratory: cough, shortness of breath, SOB with exertion, SOB at rest, wheezing Cardiovascular: chest pain (with coughing) Endocrine: no symptoms reported Gastrointestinal: denies: vomiting, diarrhea, constipation, hematemesis Genitourinary: denies: dysuria Musculoskeletal: denies: joint swelling Neurological: weakness. denies: headache, numbness, paresthesias ED Past Medical Hx - Past Medical History Hx Hypertension: Yes Hx Congestive Heart Failure: Yes Hx Diabetes: Yes Hx GERD: Yes (Darby's esophagus) Hx Arthritis: Yes Hx Headaches / Migraines: Yes Hx Psychiatric Treatment: Yes (anxiety/panic attacks, depression) Hx Asthma: Yes Hx COPD: Yes Hx HIV: No Additional medical history: chronic back problems/pain cardiac mass 06/2015. restless leg syndrome,. sleep apnea. pituitary gland tumor. A-Fib, fatty liver. Epicardial fat pad "cardiac mass". CARDIAC MASS. REYNAUD'S DISEASE - Surgical History Hx Coronary Stent: Yes Additional Surgical History: hysterectomy, , all teeth removed, cataract surgery, upper gi surgery, PAT ablation r) greater saphenous, PORT in and PORT out, HEART CATH, VASCULAR SURGERY rt leg.Raynards, Rt and left leg stents in [facility] - Social History Smoking Status: Smoker, Current Status Unknown Substance Use Type: None - Medications Home Medications: Home Medications Medication Instructions Recorded Confirmed Last Taken Type ALPRAZolam [Xanax TAB] 1 mg PO TID #60 tablet 04/05/17 07/11/17 07/11/17 Rx Amiodarone [Cordarone 200 MG TAB] 200 mg PO BID #30 tablet 04/05/17 07/11/1704/21 Rx Furosemide [Lasix TAB] 40 mg PO BID #30 tablet 04/05/17 07/11/17 07/11/17 Rx Potassium Chloride [K-Dur] 1 tab PO QDAY #30 tablet 04/05/17 07/11/17 07/11/17 Rx Spironolactone [Aldactone] 25 mg PO QDAY #30 tablet 04/05/17 07/11/17 07/11/17 Rx Venlafaxine Xr [Effexor XR] 150 mg PO BID #60 capsule 04/05/17 07/11/17 Rx predniSONE [Deltasone] 10 mg PO .TAPER #48 tab 04/05/17 07/11/17 07/11/17 Rx rOPINIRole [Requip] 5 mg PO TID #90 tablet 04/05/17 07/11/17 07/11/17 Rx Aspirin [Aspirin BABY CHEW TAB] 81 mg PO QDAY 07/11/17 07/11/17 07/11/17 History Bupropion HCl [Wellbutrin XL] 300 mg PO QAM 07/11/17 07/11/17 07/11/17 History Diltiazem [Cardizem] 180 mg PO QDAY 07/11/17 07/11/17 07/11/17 History Hydrocortisone 2.5% [Proctosol-Hc] 28.35 gm [place] DAILY 07/11/17 07/11/17 07/11/17 History Levalbuterol HCl [Xopenex] 1.25 mg IH DAILY 07/11/17 07/11/17 07/11/17 History Levalbuterol Hfa 45 Mcg/Puff 2 puff IH Q4H 07/11/17 07/11/17 07/11/17 History [Xopenex Hfa (Nf)] Magnesium Oxide [Magnesium] 400 mg PO DAILY 07/11/17 07/11/17 07/11/17 History Omeprazole Magnesium [PriLOSEC Otc] 20 mg PO QDAY 07/11/17 07/11/17 07/11/17 History glipiZIDE [Glucotrol] 5 mg PO BID 07/11/17 07/11/17 07/11/17 History AtorvaSTATin [Lipitor] 40 mg PO QHS #30 tab 07/13/17 Unknown Rx ED Physical Exam - General Limitations: Physical Limitation General appearance: alert, in distress (mild to moderate), obese, other (pt appears pink, no cyanosis) - Head Head exam: Present: atraumatic, normocephalic - Eye Eye exam: Present: normal appearance, PERRL, EOMI - ENT ENT exam: Present: normal exam, normal orophraynx, mucous membranes moist - Neck Neck exam: Present: normal inspection, full ROM. Absent: tenderness, meningismus - Respiratory Respiratory exam: Present: wheezes, rhonchi, prolonged expiratory - Cardiovascular Cardiovascular Exam: Present: regular rate, normal rhythm, normal heart sounds - GI/Abdominal GI/Abdominal exam: Present: soft, distended (obese abdomen), normal bowel sounds. Absent: tenderness, guarding, rebound - Rectal Rectal exam: Present: deferred - Extremities Exam Extremities exam: Present: normal inspection, full ROM, normal capillary refill - Back Exam Back exam: Present: normal inspection, full ROM - Neurological Exam Neurological exam: Present: alert, oriented X3, CN II-XII intact ED Course Vital Signs 08/03/17 08/03/17 08/03/17 21:54 22:00 22:16 Temperature Pulse Rate 82 81 83 Pulse Rate [ Bilateral Throughout] Respiratory 17 15 16 Rate Respiratory Rate [Bilateral Throughout] Blood Pressure 143/61 143/61 Blood Pressure [Left] O2 Sat by Pulse 95 94 94 Oximetry 08/03/17 08/03/17 08/03/17 22:30 22:46 23:00 Temperature Pulse Rate 82 83 86 Pulse Rate [ Bilateral Throughout] Respiratory 18 17 19 Rate Respiratory Rate [Bilateral Throughout] Blood Pressure 148/63 162/77 133/57 Blood Pressure [Left] O2 Sat by Pulse 95 95 Oximetry 08/03/17 08/03/17 08/04/17 23:03 23:08 00:14 Temperature 98.0 F 98 F Pulse Rate 84 84 Pulse Rate [ Bilateral Throughout] Respiratory 18 24 Rate Respiratory 24 Rate [Bilateral Throughout] Blood Pressure 147/68 Blood Pressure 147/68 [Left] O2 Sat by Pulse 96 96 Oximetry 08/04/17 08/04/17 08/04/17 00:15 00:22 00:37 Temperature Pulse Rate Pulse Rate [ 83 83 Bilateral Throughout] Respiratory Rate Respiratory 18 20 17 Rate [Bilateral Throughout] Blood Pressure Blood Pressure [Left] O2 Sat by Pulse Oximetry - Reevaluation(s) Reevaluation #1: 08/04/17 0246 Pt and relative left ED AMA ED Medical Decision Making - Lab Data Result diagrams: 08/03/17 23:29 08/03/17 23:29 Critical Care Time: No Critical care attestation.: If time is entered above; I have spent that time in minutes in the direct care of this critically ill patient, excluding procedure time. ED Disposition Clinical Impression: History of COPD Disposition: DC-07 LEFT AGAINST MED ADVICE Is pt being admited?: No Does the pt Need Aspirin: No Condition: Stable Instructions: Chronic Obstructive Pulmonary Disease (ED) Additional Instructions: Follow up with your PCP in 2-3 days RTD if your problem gets worse Referrals: PRIMARY CAREMD [Primary Care Provider] - 3-5 Days Forms: AMA Form Time of Disposition: 02:46
--- NOTE | 2017-08-04 09:25 | XRay Report ---
AP CHEST :08/03/17 23:17 CLINICAL: Shortness of breath. COMPARISON:07/18/17 FINDINGS: Cardiomegaly and mild central vascular congestion.. The lungs are normally expanded and clear. The bones and soft tissues are normal.No tubes or lines. IMPRESSION: Cardiomegaly but no CHF.
== END 2017-08-04 02:43 | disposition left against medical advice (07) ==
LOC: ED 21:29
DX: J44.9 Chronic obstructive pulmonary disease, unspecified (principal); I50.9 Heart failure, unspecified; E11.9 Type 2 diabetes mellitus without complications; K21.9 Gastro-esophageal reflux disease without esophagitis; M19.90 Unspecified osteoarthritis, unspecified site; G43.909 Migraine, unspecified, not intractable, without status migrainosus; J45.909 Unspecified asthma, uncomplicated; F32.9 Major depressive disorder, single episode, unspecified; Z88.8 Allergy status to other drugs, medicaments and biological substances; Z79.82 Long term (current) use of aspirin
CPT/HCPCS: 36415; 71010; 80048; 82803; 84484; 85007; 85025; 93005; 93010; 94640; 96365; 96375; 99284; J2930; J3475